=== PATIENT | female | born 1965 | race Hispanic/Latino ===

== ENCOUNTER 2018-07-01 15:20 | Emergency (ER) | payer OTHER ==
[~2018-07-01] VITALS: Ht 147.3 cm; Wt 56.7 kg
--- OUTSIDE RECORDS SUMMARY | 2018-07-01 15:22 | XMS REPORT | Clinical Summary ---
Author Author [facility] Address Unknown Phone Unavailable Care Team Providers Care Balancer Scale Name Role Phone Asked, No Pcp PCP Unavailable Allergies No Known Allergies Current Medications Prescription Sig. Disp. Refills Start End Date Status Date predniSONE (DELTASONE) 20 Take 4 tablets (80 mg 80 tablet 0 07/09/20 07/29/20 mg tablet total) by mouth daily for 17 17 20 days. insulin NPH (HumuLIN-N) Inject 12 Units under the 10 mL 12 07/09/20 07/29/20 100 unit/mL injection skin 2 (two) times a day 17 17 before meals for 20 days. sertraline (ZOLOFT) 25 MG Take 1 tablet (25 mg 30 tablet 0 07/09/20 08/08/20 tablet total) by mouth daily for 17 17 30 days. Active Problems Problem Noted Date Septic shock (HCC) 06/22/2017 Lymphadenopathy 06/21/2017 Overview: Added automatically from request for surgery [id number] Encounters Date Type Specialty Care Team Description 08/24/2017 Orders Only Hematology and Oncology Crystal Anne MD 07/13/2017 Lab Lab Aditya Burgess MD Other specified diseases of blood and blood-forming organs 07/13/2017 Office Visit Hematology Aditya Burgess MD Lymphadenopathy (Primary Dx); EBV infection 07/12/2017 Orders Only Hematology Pamella Schwarz MA Other specified diseases of blood and blood-forming organs (Primary Dx) 07/04/2017 Orders Only General Surgery Eleanor Arroyo MD 07/03/2017 Anesthesia General Surgery Doris Hunter Event MD 07/03/2017 Procedure Pass General Surgery 07/03/2017 Surgery General Surgery Mitchell Cheung MD Supraclavicular excisional lymph node biopsy 06/21/2017 [facility] General Surgery Rehrer, Samuel Garcia, DO Septic shock (Primary - Encounter Lock, Balbina Concepcion MD Dx); 07/09/2017 Lymphadenopathy after 06/30/2017 Social History Tobacco Use Types Packs/Day Years Used Date Never Smoker Smokeless Tobacco: Never Used Alcohol Use Drinks/Week oz/Week Comments No Sex Assigned at Date Recorded Not on file Last Filed Vital Signs Vital Sign Reading Time Taken Blood Pressure 99/50 07/13/2017 12:22 PM RECTIFYING OPERATOR Pulse 83 07/13/2017 12:22 PM RECTIFYING OPERATOR Temperature 36.2 C (97.2 F) 07/13/2017 12:22 PM RECTIFYING OPERATOR Respiratory Rate 99 07/13/2017 12:22 PM RECTIFYING OPERATOR Oxygen Saturation 100% 07/09/2017 12:25 PM RECTIFYING OPERATOR Inhaled Oxygen - - Concentration Weight 46.6 kg (102 lb 12.8 oz) 07/13/2017 12:22 PM RECTIFYING OPERATOR Height 152.4 cm (5') 07/13/2017 12:22 PM RECTIFYING OPERATOR Body Mass Index 20.08 07/13/2017 12:22 PM RECTIFYING OPERATOR Plan of Treatment Health Maintenance Due Date Last Done Comments BREAST CANCER SCREENING 2014 COLON CANCER SCREENING 2014 SHINGRIX VACCINE (#1) 2014 INFLUENZA VACCINE 03/28/2018 CERVICAL CANCER SCREENING 06/29/2020 06/29/2017 Implants Implanted Type Area Paintings Restorer Device Expiration Model / Identifier Date Serial / Lot Drain Wnd Chnl 19fr 4in Rnd Hbls Surgical N/A: N/A SHARON AND 2230 / -Flut W/ 4in Trocar - [id number] Implants; NI [facility] / Implanted: 06/23/2017 (Quantity not Expanders; CARE on file) Extenders; Surgical Wires Procedures Procedure Name Priority Date/Time Associated Diagnosis Comments MANUAL DIFFERENTIAL Routine 07/13/2017 Results for this 11:05 AM RECTIFYING OPERATOR procedure are in the results section. CBC WITH PLATELET AND Routine 07/13/2017 Other specified diseases Results for this DIFFERENTIAL 11:05 AM RECTIFYING OPERATOR of blood and procedure are in the blood-forming organs results section. POC GLUCOSE Routine 07/09/2017 Results for this 12:24 PM RECTIFYING OPERATOR procedure are in the results section. POC GLUCOSE Routine 07/09/2017 Results for this 8:07 AM RECTIFYING OPERATOR procedure are in the results section. POC GLUCOSE Routine 07/08/2017 Results for this 9:22 PM RECTIFYING OPERATOR procedure are in the results section. POC GLUCOSE Routine 07/08/2017 Results for this 5:02 PM RECTIFYING OPERATOR procedure are in the results section. POC GLUCOSE Routine 07/08/2017 Results for this 12:32 PM RECTIFYING OPERATOR procedure are in the results section. POC GLUCOSE Routine 07/08/2017 Results for this 8:55 AM RECTIFYING OPERATOR procedure are in the results section. ZZESTIMATED GFR Routine 07/08/2017 Results for this 4:00 AM RECTIFYING OPERATOR procedure are in the results section. BASIC METABOLIC PANEL Routine 07/08/2017 Results for this 4:00 AM RECTIFYING OPERATOR procedure are in the results section. MANUAL DIFFERENTIAL Routine 07/08/2017 Results for this 3:35 AM RECTIFYING OPERATOR procedure are in the results section. CBC WITH PLATELET AND Routine 07/08/2017 Results for this DIFFERENTIAL 3:35 AM RECTIFYING OPERATOR procedure are in the results section. POC GLUCOSE Routine 07/07/2017 Results for this 8:15 PM RECTIFYING OPERATOR procedure are in the results section. POC GLUCOSE Routine 07/07/2017 Results for this 5:44 PM RECTIFYING OPERATOR procedure are in the results section. POC GLUCOSE Routine 07/07/2017 Results for this 12:15 PM RECTIFYING OPERATOR procedure are in the results section. POC GLUCOSE Routine 07/07/2017 Results for this 9:00 AM RECTIFYING OPERATOR procedure are in the results section. ZZESTIMATED GFR Routine 07/07/2017 Results for this 4:00 AM RECTIFYING OPERATOR procedure are in the results section. BASIC METABOLIC PANEL Routine 07/07/2017 Results for this 4:00 AM RECTIFYING OPERATOR procedure are in the results section. HC COMPLETE BLD COUNT Routine 07/07/2017 Results for this W/AUTO DIFF 3:40 AM RECTIFYING OPERATOR procedure are in the results section. POC GLUCOSE Routine 07/06/2017 Results for this 9:22 PM RECTIFYING OPERATOR procedure are in the results section. POC GLUCOSE Routine 07/06/2017 Results for this 3:49 PM RECTIFYING OPERATOR procedure are in the results section. ECHOCARDIOGRAM 2D Routine 07/06/2017 Results for this COMPLETE W MMODE SPECTRAL 2:07 PM RECTIFYING OPERATOR procedure are in the COLOR DOPPLER ([id number]) results section. POC GLUCOSE Routine 07/06/2017 Results for this 11:23 AM RECTIFYING OPERATOR procedure are in the results section. POC GLUCOSE Routine 07/06/2017 Results for this 7:30 AM RECTIFYING OPERATOR procedure are in the results section. SMEAR REVIEW Routine 07/06/2017 Results for this 4:30 AM RECTIFYING OPERATOR procedure are in the results section. HC COMPLETE BLD COUNT Routine 07/06/2017 Results for this W/AUTO DIFF 4:30 AM RECTIFYING OPERATOR procedure are in the results section. ZZESTIMATED GFR Routine 07/06/2017 Results for this 4:00 AM RECTIFYING OPERATOR procedure are in the results section. BASIC METABOLIC PANEL Routine 07/06/2017 Results for this 4:00 AM RECTIFYING OPERATOR procedure are in the results section. MAGNESIUM LEVEL Routine 07/06/2017 Results for this 4:00 AM RECTIFYING OPERATOR procedure are in the results section. PHOSPHORUS LEVEL Routine 07/06/2017 Results for this 4:00 AM RECTIFYING OPERATOR procedure are in the results section. POC GLUCOSE Routine 07/05/2017 Results for this 8:05 PM RECTIFYING OPERATOR procedure are in the results section. SURGICAL PATHOLOGY Routine 07/05/2017 Results for this REQUEST 5:19 PM RECTIFYING OPERATOR procedure are in the results section. POC GLUCOSE Routine 07/05/2017 Results for this 4:36 PM RECTIFYING OPERATOR procedure are in the results section. POC GLUCOSE Routine 07/05/2017 Results for this 11:38 AM RECTIFYING OPERATOR procedure are in the results section. NM LUNG VENTILATION Routine 07/05/2017 Results for this PERFUSION 10:43 AM RECTIFYING OPERATOR procedure are in the results section. POC GLUCOSE Routine 07/05/2017 Results for this 7:51 AM RECTIFYING OPERATOR procedure are in the results section. POC GLUCOSE Routine 07/05/2017 Results for this 4:51 AM RECTIFYING OPERATOR procedure are in the results section. ZZESTIMATED GFR Routine 07/05/2017 Results for this 1:59 AM RECTIFYING OPERATOR procedure are in the results section. LACTIC ACID LEVEL Routine 07/05/2017 Results for this 1:59 AM RECTIFYING OPERATOR procedure are in the results section. BASIC METABOLIC PANEL Routine 07/05/2017 Results for this 1:59 AM RECTIFYING OPERATOR procedure are in the results section. MAGNESIUM LEVEL Routine 07/05/2017 Results for this 1:59 AM RECTIFYING OPERATOR procedure are in the results section. PHOSPHORUS LEVEL Routine 07/05/2017 Results for this 1:59 AM RECTIFYING OPERATOR procedure are in the results section. URINALYSIS SCREEN AND Routine 07/05/2017 Results for this MICROSCOPY, WITH REFLEX 1:50 AM RECTIFYING OPERATOR procedure are in the TO CULTURE results section. URINE CULTURE Routine 07/05/2017 Results for this 1:50 AM RECTIFYING OPERATOR procedure are in the results section. BLOOD CULTURE, AEROBIC & Routine 07/05/2017 Results for this ANAEROBIC 1:42 AM RECTIFYING OPERATOR procedure are in the results section. MANUAL DIFFERENTIAL Routine 07/05/2017 Results for this 1:30 AM RECTIFYING OPERATOR procedure are in the results section. CBC WITH PLATELET AND Routine 07/05/2017 Results for this DIFFERENTIAL 1:30 AM RECTIFYING OPERATOR procedure are in the results section. BLOOD CULTURE, AEROBIC & Routine 07/05/2017 Results for this ANAEROBIC 1:30 AM RECTIFYING OPERATOR procedure are in the results section. POC GLUCOSE Routine 07/05/2017 Results for this 12:07 AM RECTIFYING OPERATOR procedure are in the results section. POC GLUCOSE Routine 07/04/2017 Results for this 8:26 PM RECTIFYING OPERATOR procedure are in the results section. POC GLUCOSE Routine 07/04/2017 Results for this 4:58 PM RECTIFYING OPERATOR procedure are in the results section. SURGICAL PATHOLOGY Routine 07/04/2017 Results for this REQUEST 4:37 PM RECTIFYING OPERATOR procedure are in the results section. BONE MARROW TRAY Routine 07/04/2017 Results for this 2:50 PM RECTIFYING OPERATOR procedure are in the results section. FLOW CYTOMETRY EVALUATION Routine 07/04/2017 Results for this 2:50 PM RECTIFYING OPERATOR procedure are in the results section. MISCELLANEOUS REFERRAL Routine 07/04/2017 Results for this TEST 2:50 PM RECTIFYING OPERATOR procedure are in the results section. BIOPSY BONE MARROW Routine 07/04/2017 Lymphadenopathy Results for this 2:49 PM RECTIFYING OPERATOR procedure are in the results section. POC GLUCOSE Routine 07/04/2017 Results for this 12:00 PM RECTIFYING OPERATOR procedure are in the results section. POC GLUCOSE Routine 07/04/2017 Results for this 8:15 AM RECTIFYING OPERATOR procedure are in the results section. ZZESTIMATED GFR Routine 07/04/2017 Results for this 4:00 AM RECTIFYING OPERATOR procedure are in the results section. MAGNESIUM LEVEL Routine 07/04/2017 Results for this 4:00 AM RECTIFYING OPERATOR procedure are in the results section. PHOSPHORUS LEVEL Routine 07/04/2017 Results for this 4:00 AM RECTIFYING OPERATOR procedure are in the results section. HC COMPLETE BLD COUNT Routine 07/04/2017 Results for this W/AUTO DIFF 4:00 AM RECTIFYING OPERATOR procedure are in the results section. BASIC METABOLIC PANEL Routine 07/04/2017 Results for this 4:00 AM RECTIFYING OPERATOR procedure are in the results section. POC GLUCOSE Routine 07/03/2017 Results for this 7:50 PM RECTIFYING OPERATOR procedure are in the results section. SURGICAL PATHOLOGY Routine 07/03/2017 Results for this REQUEST 5:07 PM RECTIFYING OPERATOR procedure are in the results section. WV AN ELECTIVE Routine 07/03/2017 SUPRAGLOTTIC AIRWAY 4:45 PM RECTIFYING OPERATOR Procedure Note - Doris Hunter MD - 07/03/2017 4:44 PM RECTIFYING OPERATOR Airway Performed by: DORIS HUNTER Authorized by: DORIS HUNTER Location: OR Urgency: Elective Difficult Airway: No Anesthesio logist: DORIS HUNTER Performed by: anesthesio logist Preoxygena kyle with 100% O2: Yes C-spine Precaution s Maintained Throughout : Yes Mask Ventilatio n: Easy mask Final Airway Type: Supraglott ic airway Final LMA: I-Gel LMA Size: 4 Number of Attempts at Approach: 1 FLOW CYTOMETRY EVALUATION Routine 07/03/2017 Results for this 4:00 PM RECTIFYING OPERATOR procedure are in the results section. DISSECTION, LYMPH NODE 07/03/2017 1:15 PM RECTIFYING OPERATOR POC GLUCOSE Routine 07/03/2017 Results for this 11:53 AM RECTIFYING OPERATOR procedure are in the results section. POC GLUCOSE Routine 07/03/2017 Results for this 9:14 AM RECTIFYING OPERATOR procedure are in the results section. ZZESTIMATED GFR Routine 07/03/2017 Results for this 4:00 AM RECTIFYING OPERATOR procedure are in the results section. HC COMPLETE BLD COUNT Routine 07/03/2017 Results for this W/AUTO DIFF 4:00 AM RECTIFYING OPERATOR procedure are in the results section. BASIC METABOLIC PANEL Routine 07/03/2017 Results for this 4:00 AM RECTIFYING OPERATOR procedure are in the results section. POC GLUCOSE Routine 07/02/2017 Results for this 8:48 PM RECTIFYING OPERATOR procedure are in the results section. POC GLUCOSE Routine 07/02/2017 Results for this 5:01 PM RECTIFYING OPERATOR procedure are in the results section. POC GLUCOSE Routine 07/02/2017 Results for this 11:49 AM RECTIFYING OPERATOR procedure are in the results section. POC GLUCOSE Routine 07/02/2017 Results for this 7:48 AM RECTIFYING OPERATOR procedure are in the results section. ZZESTIMATED GFR Routine 07/02/2017 Results for this 3:32 AM RECTIFYING OPERATOR procedure are in the results section. BASIC METABOLIC PANEL Routine 07/02/2017 Results for this 3:32 AM RECTIFYING OPERATOR procedure are in the results section. HC COMPLETE BLD COUNT Routine 07/02/2017 Results for this W/AUTO DIFF 3:00 AM RECTIFYING OPERATOR procedure are in the results section. POC GLUCOSE Routine 07/01/2017 Results for this 9:21 PM CDT procedure are in the results section. POC GLUCOSE Routine 07/01/2017 Results for this 5:11 PM CDT procedure are in the results section. POC GLUCOSE Routine 07/01/2017 Results for this 11:37 AM CDT procedure are in the results section. POC GLUCOSE Routine 07/01/2017 Results for this 7:46 AM CDT procedure are in the results section. CBC WITH PLATELET AND Routine 07/01/2017 Results for this DIFFERENTIAL 4:20 AM CDT procedure are in the results section. ZZESTIMATED GFR Routine 07/01/2017 Results for this 4:00 AM CDT procedure are in the results section. BASIC METABOLIC PANEL Routine 07/01/2017 Results for this 4:00 AM CDT procedure are in the results section. POC GLUCOSE Routine 06/30/2017 Results for this 8:21 PM CDT procedure are in the results section. POC GLUCOSE Routine 06/30/2017 Results for this 4:15 PM CDT procedure are in the results section. POC GLUCOSE Routine 06/30/2017 Results for this 12:28 PM CDT procedure are in the results section. PET CT SKULL BASE TO MID Routine 06/30/2017 Results for this THIGH 10:16 AM CDT procedure are in the results section. POC GLUCOSE Routine 06/30/2017 Results for this 8:45 AM CDT procedure are in the results section. POC GLUCOSE Routine 06/30/2017 Results for this 8:25 AM CDT procedure are in the results section. PERIPHERAL SMEAR Routine 06/30/2017 Results for this 4:34 AM CDT procedure are in the results section. HC COMPLETE BLD COUNT Routine 06/30/2017 Results for this W/AUTO DIFF 4:34 AM CDT procedure are in the results section. BLOOD PARASITE SCREEN Routine 06/30/2017 Results for this 4:10 AM CDT procedure are in the results section. BLOOD PARASITE, THIN Routine 06/30/2017 Results for this SMEAR 4:10 AM CDT procedure are in the results section. ZZESTIMATED GFR Routine 06/30/2017 Results for this 4:00 AM CDT procedure are in the results section. BASIC METABOLIC PANEL Routine 06/30/2017 Results for this 4:00 AM CDT procedure are in the results section. after 06/30/2017 Results * Manual differential (07/13/2017 11:05 AM) Only the most recent of 3 results within the time period is included. Manual differential PERFORMED [facility] DEPARTMENT OF PATHOLOGY AND GENOMIC MEDICINE Neutrophils 88.0 (H) 39.0 - 69.0 % [facility] DEPARTMENT OF PATHOLOGY AND GENOMIC MEDICINE Lymphocytes 8.0 (L) 25.0 - 45.0 % [facility] DEPARTMENT OF PATHOLOGY AND GENOMIC MEDICINE Monocytes 0.0 0.0 - 10.0 % [facility] DEPARTMENT OF PATHOLOGY AND GENOMIC MEDICINE Eosinophils 1.0 0.0 - 5.0 % [facility] DEPARTMENT OF PATHOLOGY AND GENOMIC MEDICINE Basophils 0.0 0.0 - 1.0 % [facility] DEPARTMENT OF PATHOLOGY AND GENOMIC MEDICINE Metamyelocytes 1 % [facility] DEPARTMENT OF PATHOLOGY AND GENOMIC MEDICINE Myelocytes 2 % [facility] DEPARTMENT OF PATHOLOGY AND GENOMIC MEDICINE Promyelocytes 0 % [facility] DEPARTMENT OF PATHOLOGY AND GENOMIC MEDICINE Platelet slide review Randall adequate [facility] DEPARTMENT OF PATHOLOGY AND GENOMIC MEDICINE Anisocytosis Moderate [facility] DEPARTMENT OF PATHOLOGY AND GENOMIC MEDICINE Polychromasia Moderate [facility] DEPARTMENT OF PATHOLOGY AND GENOMIC MEDICINE Spherocytes Occasional [facility] DEPARTMENT OF PATHOLOGY AND GENOMIC MEDICINE Performing Organization Address City/State/Zipcode Phone Number [facility] DEPARTMENT OF [address] [place] [phone] PATHOLOGY AND GENOMIC MEDICINE * CBC with platelet and differential (07/13/2017 11:05 AM) Only the most recent of 10 results within the time period is included. WBC 15.65 (H) 4.50 - 11.00 k/uL [facility] DEPARTMENT OF PATHOLOGY AND GENOMIC MEDICINE RBC 3.98 (L) 4.20 - 5.50 m/uL [facility] DEPARTMENT OF PATHOLOGY AND GENOMIC MEDICINE HGB 10.0 (L) 12.0 - 16.0 g/dL [facility] DEPARTMENT OF PATHOLOGY AND GENOMIC MEDICINE HCT 33.1 (L) 37.0 - 47.0 % [facility] DEPARTMENT OF PATHOLOGY AND GENOMIC MEDICINE MCV 83.2 82.0 - 100.0 fL [facility] DEPARTMENT OF PATHOLOGY AND GENOMIC MEDICINE MCH 25.1 (L) 27.0 - 34.0 pg [facility] DEPARTMENT OF PATHOLOGY AND GENOMIC MEDICINE MCHC 30.2 (L) 31.0 - 37.0 g/dL [facility] DEPARTMENT OF PATHOLOGY AND GENOMIC MEDICINE RDW - SD 70.7 (H) 37.0 - 55.0 fL [facility] DEPARTMENT OF PATHOLOGY AND GENOMIC MEDICINE MPV 9.1 8.8 - 13.2 fL [facility] DEPARTMENT OF PATHOLOGY AND GENOMIC MEDICINE Platelet count 270 150 - 400 k/uL [facility] DEPARTMENT OF PATHOLOGY AND GENOMIC MEDICINE Neutrophils 88.0 (H) 39.0 - 69.0 % [facility] DEPARTMENT OF PATHOLOGY AND GENOMIC MEDICINE Lymphocytes 8.0 (L) 25.0 - 45.0 % [facility] DEPARTMENT OF PATHOLOGY AND GENOMIC MEDICINE Monocytes 0.0 0.0 - 10.0 % [facility] DEPARTMENT OF PATHOLOGY AND GENOMIC MEDICINE Eosinophils 1.0 0.0 - 5.0 % [facility] DEPARTMENT OF PATHOLOGY AND GENOMIC MEDICINE Basophils 0.0 0.0 - 1.0 % [facility] DEPARTMENT OF PATHOLOGY AND GENOMIC MEDICINE Specimen Blood Performing Organization Address City/[facility] [place] [address] PATHOLOGY AND GENOMIC MEDICINE * POC glucose (07/09/2017 12:24 PM) Only the most recent of 40 results within the time period is included. POC glucose 212 (H) 65 - 99 mg/dL [facility] DEPARTMENT OF Comment: PATHOLOGY AND [facility] Notified RN GENOMIC MEDICINE Meter ID: [id number] Ecotherapist: Catalina Morgan Performing Organization Address [facility] [place] [address] PATHOLOGY AND GENOMIC MEDICINE * Estimated GFR (07/08/2017 4:00 AM) Only the most recent of 9 results within the time period is included. GFR Non Af Amer >90 mL/min/1.73 m2 [facility] DEPARTMENT OF PATHOLOGY AND GENOMIC MEDICINE GFR Af Amer >90 mL/min/1.73 m2 [facility] DEPARTMENT OF Comment: PATHOLOGY AND Chronic kidney disease: <60 GENOMIC MEDICINE mL/min/1.73m2 Kidney failure: <15 mL/min/1.73m2 The estimated GFR is calculated from the IDMS-traceable Modification of Diet in Renal Disease Equation. The accuracy of the calculation is poor when the creatinine is normal. Calculated values >90 mL/min/1.73m2 are not reported. This equation has not been validated in children (<18 years), women, the elderly (>70 years), or ethnic groups other than Caucasians and Americans. Specimen Plasma specimen Performing Organization Address City/[facility] [place] [address] PATHOLOGY AND GENOMIC MEDICINE * Basic metabolic panel (07/08/2017 4:00 AM) Only the most recent of 9 results within the time period is included. Sodium 133 (L) 135 - 148 mEq/L [facility] DEPARTMENT OF PATHOLOGY AND GENOMIC MEDICINE Potassium 5.0 3.5 - 5.0 mEq/L [facility] DEPARTMENT OF PATHOLOGY AND GENOMIC MEDICINE Chloride 96 (L) 98 - 112 mEq/L [facility] DEPARTMENT OF PATHOLOGY AND GENOMIC MEDICINE CO2 21 (L) 24 - 31 mEq/L [facility] DEPARTMENT OF PATHOLOGY AND GENOMIC MEDICINE Anion gap 16 (H) 7 - 15 mEq/L [facility] DEPARTMENT OF Comment: PATHOLOGY AND Starting from November [facility] , anion gap calculation no longer incorporates potassium. Please note the change. BUN 6 6 - 20 mg/dL [facility] DEPARTMENT OF PATHOLOGY AND GENOMIC MEDICINE Creatinine 0.4 (L) 0.5 - 0.9 mg/dL [facility] DEPARTMENT OF PATHOLOGY AND GENOMIC MEDICINE Glucose 186 (H) 65 - 99 mg/dL [facility] DEPARTMENT OF PATHOLOGY AND GENOMIC MEDICINE Calcium 8.9 8.3 - 10.2 mg/dL [facility] DEPARTMENT OF PATHOLOGY AND GENOMIC MEDICINE Specimen Plasma specimen Performing Organization Address City/State/Zipcode Phone Number [facility] DEPARTMENT OF [address] [place] [address] PATHOLOGY AND GENOMIC MEDICINE * Echocardiogram complete w contrast and 3D if needed (07/06/2017 2:07 PM) Narrative Performed At [facility] Echocardiography Report [address] [place] [address].Name:Emma HERNANDEZ.ID:[id number] .Date: 07/06/2017 Refer.MD:BALBINA GALEANO MD Exam Time: 3:26:00 PMStudy Type:Routine Echo Height:60inWeight:115lb BSA: 1.48 m2 DOBAge:1965,51Y Sex: FEMALEBP:94/50 HR:110 bpm Sonogrphr: ARTEM Duarte Pat. Stat.:Inpatient Room:D871A Study Status:Final Echo Event ID:[id number] Order ID:[id number] Reason for Study:Cardiomyopathy; initial evaluation known or suspected, SHOCK Procedures:2D Echo, Colorflow Doppler, Portable, Stat Race:C SUMMARY: Compared to the prior study, RV systolic function has normalized. LV EF is normal. Small anterior and posterior pericardial effusion. Delayed contrast appears in the left atrium after 6 cardiac cycles consistent with transpulmonary shunting. LV filling pressure is normal. FINDINGS: LV: LV size is normal. LV EF is normal. Estimated EF is 55-59%. Overallwall motion is normal. RV: RV size is mildly enlarged. RV systolic function is normal. LA: LA volume is normal. RA: RA size is normal. AO: Aortic root diameter is normal. SERGEY: Small anterior and posterior pericardial effusion. Cntrst: Delayed contrast appears in the left atrium after 6 cardiac cyclesconsistent with transpulmonary shunting. AV: No structural AV abnormalities noted. MV: Thickened and/or calcified chordae. A trace of mitral regurgitation. PV: No structural PV abnormalities noted. Mild pulmonic regurgitation. TV: Dilated tricuspid annulus. Moderate tricuspid regurgitation Harper: LV relaxation is normal. LV filling pressure is normal. Other:Insufficient TR jet to estimate PA systolic pressure. MEASUREMENTS: 2D Parasternal Long [place] LVOT 1.8 cmIVSd 0.7 cm LA Ds2.7 cmLVPWd0.8 cm Ao Rtd 2.8 cmIndex1.9 cm/m LV Mass 81.4 g(87-129) LVIDd4 cmIndex2.7 cm/m LVM Index 55 g/m2 LVIDs2.1 cmRWT0.4 LV%fs 48.7 % LA Sng Plane LA Area 13.2 cm2(8.8-23.4) LA Vol27 ml Index18.3 ml/m LA LngAx 5.3 cm RA Sng Plane RA Area 13 cm2(8.3-19.5) RA Vol28.8 ml Index19.5 ml/m RA LngAx 5 cm DOPPLER LVOT Stroke Vol LVOT 1.8 cmLVOT CO4.3 l/min LVOT TVI20.1 cmLVOT CI2.9 l/m/m2 LVOT [id number] jrewSY19 bpm LVOT SV 51.1 ml Signed 07/06/2017 07:24 PM Leonard Mcfarland M.D. Procedure Note Interface, Radiology Results In - 07/06/2017 7:25 PM RECTIFYING OPERATOR Echocardiography Report [id number]Name: JENNY HERNANDEZ Pat.ID: [id number] St.Date: 07/06/2017 Refer.MD: BALBINA GALEANO MD Exam Time: 3:26:00 PM Study Type:Routine Echo Height: 60in Weight: 115lb BSA: 1.48 m2 Age: 11 1965,51Y Sex: FEMALE BP: 94/50 HR: 110 bpm Sonogrphr: ARTEM Duarte Pat. Stat.:[facility] Status:Final [facility] Event ID:[id number] Order ID: [id number] Reason for Study:Cardiomyopathy; initial evaluation known or suspected, SHOCK Procedures:2D Echo, Colorflow Doppler, Portable, Stat Race: C SUMMARY: Compared to the prior study, RV systolic function has normalized. LV EF is normal. Small anterior and posterior pericardial effusion. Delayed contrast appears in the left atrium after 6 cardiac cycles consistent with transpulmonary shunting. LV filling pressure is normal. FINDINGS: LV: LV size is normal. LV EF is normal. Estimated EF is 55-59%. Overall wall motion is normal. RV: RV size is mildly enlarged. RV systolic function is normal. LA: LA volume is normal. RA: RA size is normal. AO: Aortic root diameter is normal. SERGEY: Small anterior and posterior pericardial effusion. Cntrst: Delayed contrast appears in the left atrium after 6 cardiac cycles consistent with transpulmonary shunting. AV: No structural AV abnormalities noted. MV: Thickened and/or calcified chordae. A trace of mitral regurgitation. PV: No structural PV abnormalities noted. Mild pulmonic regurgitation. TV: Dilated tricuspid annulus. Moderate tricuspid regurgitation Harper: LV relaxation is normal. LV filling pressure is normal. Other: Insufficient TR jet to estimate PA systolic pressure. MEASUREMENTS: 2D Parasternal Long [place] LVOT 1.8 cm IVSd 0.7 cm LA Ds 2.7 cm LVPWd 0.8 cm Ao Rtd 2.8 cm Index 1.9 cm/m LV Mass 81.4 g (87-129) LVIDd 4 cm Index 2.7 cm/m LVM Index 55 g/m2 LVIDs 2.1 cm RWT 0.4 LV%fs 48.7 % LA Sng Plane LA Area 13.2 cm2 (8.8-23.4) LA Vol 27 ml Index 18.3 ml/m LA LngAx 5.3 cm RA Sng Plane RA Area 13 cm2 (8.3-19.5) RA Vol 28.8 ml Index 19.5 ml/m RA LngAx 5 cm DOPPLER LVOT Stroke Vol LVOT 1.8 cm LVOT CO 4.3 l/min LVOT TVI 20.1 cm LVOT CI 2.9 l/m/m2 LVOT Tm 217 msec HR 84 bpm LVOT SV 51.1 ml Signed 07/06/2017 07:24 PM Leonard Mcfarland M.D. Performing Organization Address City/State/Zipcode Phone Number [facility] [address] [place] [address] * Smear review (07/06/2017 4:30 AM) Platelet slide review Randall adequate [facility] DEPARTMENT OF PATHOLOGY AND GENOMIC MEDICINE Anisocytosis Marked (A) [facility] DEPARTMENT OF PATHOLOGY AND GENOMIC MEDICINE Polychromasia Moderate [facility] DEPARTMENT OF PATHOLOGY AND GENOMIC MEDICINE Ovalocytes Moderate [facility] DEPARTMENT OF PATHOLOGY AND GENOMIC MEDICINE Performing Organization Address City/[facility] Phone Number [facility] DEPARTMENT OF [address] [place] [address] PATHOLOGY AND GENOMIC MEDICINE * Phosphorus level (07/06/2017 4:00 AM) Only the most recent of 3 results within the time period is included. Phosphorus 3.7 2.4 - 4.5 mg/dL [facility] DEPARTMENT OF PATHOLOGY AND GENOMIC MEDICINE Specimen Plasma specimen Performing Organization Address City/[facility] Phone Number [facility] [place] [address] PATHOLOGY AND GENOMIC MEDICINE * Magnesium level (07/06/2017 4:00 AM) Only the most recent of 3 results within the time period is included. Magnesium 2.2 1.6 - 2.6 mg/dL [facility] DEPARTMENT OF PATHOLOGY AND GENOMIC MEDICINE Specimen Plasma specimen Performing Organization Address City/[facility] Phone Number [facility] [place] [address] PATHOLOGY AND GENOMIC MEDICINE * Surgical pathology request (07/05/2017 5:19 PM) Only the most recent of 3 results within the time period is included. [facility] DEPARTMENT OF PATHOLOGY AND GENOMIC MEDICINE Surgical pathology report See link below for PDF Lab [facility] DEPARTMENT OF Report PATHOLOGY AND GENOMIC MEDICINE Performing Organization Address City/[facility] Phone Number [facility] [place] [address] PATHOLOGY AND GENOMIC MEDICINE * NM Lung Ventilation Perfusion (07/05/2017 10:43 AM) Narrative Performed At PROCEDURE:NM LUNG VENTILATION PERFUSION RADIANT INDICATION:Right ventricular dilation dictation.Evaluate for chronic PE. COMPARISON:CT images from PET/CT scan dated 06/30/2017. TECHNIQUE:Planar ventilation images were acquired after the inhalation of 15 mCi of Xe-133 gas. Planar perfusion images were acquired after the IV adminstration of 5 mCi of Tc-99m MAA. FINDINGS:Ventilation images demonstrate decreased ventilation to the lung periphery. Washout images demonstrate patchy gas trapping in both lungs.Perfusion images demonstrate small defects in the lung periphery.No suspicious mismatched defects. Comparison imaging did not show a confluent, segmental infiltrate. IMPRESSION: 1.Very low probability for acute PE.No evidence for chronic PE. [facility]-[id number] Procedure Note Interface, Radiology Results Incoming - 07/05/2017 11:21 AM RECTIFYING OPERATOR PROCEDURE: NM LUNG VENTILATION PERFUSION INDICATION: Right ventricular dilation dictation. Evaluate for chronic PE. COMPARISON: CT images from PET/CT scan dated 06/30/2017. TECHNIQUE: Planar ventilation images were acquired after the inhalation of 15 mCi of Xe-133 gas. Planar perfusion images were acquired after the IV adminstration of 5 mCi of Tc-99m MAA. FINDINGS: Ventilation images demonstrate decreased ventilation to the lung periphery. Washout images demonstrate patchy gas trapping in both lungs. Perfusion images demonstrate small defects in the lung periphery. No suspicious mismatched defects. Comparison imaging did not show a confluent, segmental infiltrate. IMPRESSION: 1. Very low probability for acute PE. No evidence for chronic PE. [facility]-[id number] Performing Organization Address City/[facility]/Zipcode Phone Number [place] [phone] * Lactic acid level (07/05/2017 1:59 AM) Lactic acid 1.7 0.5 - 2.2 mmol/L [facility] DEPARTMENT OF PATHOLOGY AND GENOMIC MEDICINE Specimen Plasma specimen Performing Organization Address City/[facility]/Zipcode Phone Number [address] [address] PATHOLOGY AND GENOMIC MEDICINE * Urinalysis screen and microscopy, with reflex to culture (07/05/2017 1:50 AM) Specimen site Clean catch [facility] DEPARTMENT OF PATHOLOGY AND GENOMIC MEDICINE Color, UA Colorless [facility] DEPARTMENT OF PATHOLOGY AND GENOMIC MEDICINE Appearance, UA Clear [facility] DEPARTMENT OF PATHOLOGY AND GENOMIC MEDICINE Specific gravity, UA 1.002 1.001 - 1.035 [facility] DEPARTMENT OF PATHOLOGY AND GENOMIC MEDICINE pH, UA 7.0 5.0 - 8.5 [facility] DEPARTMENT OF PATHOLOGY AND GENOMIC MEDICINE Protein, UA Negative Negative [facility] DEPARTMENT OF PATHOLOGY AND GENOMIC MEDICINE Glucose, UA Negative Negative [facility] DEPARTMENT OF PATHOLOGY AND GENOMIC MEDICINE Ketones, UA Negative Negative [facility] DEPARTMENT OF PATHOLOGY AND GENOMIC MEDICINE Bilirubin, UA Negative Negative [facility] DEPARTMENT OF PATHOLOGY AND GENOMIC MEDICINE Blood, UA Negative Negative [facility] DEPARTMENT OF PATHOLOGY AND GENOMIC MEDICINE Nitrite, UA Negative Negative [facility] DEPARTMENT OF PATHOLOGY AND GENOMIC MEDICINE Urobilinogen, UA <2.0 <2.0 [facility] DEPARTMENT OF PATHOLOGY AND GENOMIC MEDICINE Leukocyte esterase, UA Negative Negative [facility] DEPARTMENT OF PATHOLOGY AND GENOMIC MEDICINE WBC, UA None seen 0 - 4 /HPF [facility] DEPARTMENT OF PATHOLOGY AND GENOMIC MEDICINE RBC, UA None seen 0 - 2 /HPF [facility] DEPARTMENT OF PATHOLOGY AND GENOMIC MEDICINE Bacteria, UA None seen None seen [facility] DEPARTMENT OF PATHOLOGY AND GENOMIC MEDICINE Yeast, UA None seen [facility] DEPARTMENT OF PATHOLOGY AND GENOMIC MEDICINE Yeast with pseudohyphae, None seen [facility] DEPARTMENT OF UA PATHOLOGY AND GENOMIC MEDICINE Specimen Urine Performing Organization Address City/[facility] Phone Number [facility] [place] [address] PATHOLOGY AND GENOMIC MEDICINE * Urine culture (07/05/2017 1:50 AM) Urine culture SEE COMMENTComment: [facility] DEPARTMENT OF Bacteriuria screen negative. PATHOLOGY AND GENOMIC MEDICINE Performing Organization Address City/[facility] Phone Number [facility] [place] [address] PATHOLOGY AND GENOMIC MEDICINE * Blood culture, aerobic & anaerobic (07/05/2017 1:42 AM) Only the most recent of 2 results within the time period is included. Blood culture isolate No growth after 5 days of [facility] DEPARTMENT OF incubation. PATHOLOGY AND Comment: GENOMIC MEDICINE Specimen Information Specimen Source: Blood Specimen Site: Hand Right Specimen Blood Performing Organization Address City/State/Zipcode Phone Number [facility] [place] [address] PATHOLOGY AND GENOMIC MEDICINE * Bone marrow tray (07/04/2017 2:50 PM) Bone marrow tray done [facility] DEPARTMENT OF PATHOLOGY AND GENOMIC MEDICINE Specimen Fluid Performing Organization Address City/[facility]/Zipcode Phone Number [facility] [place] [address] PATHOLOGY AND GENOMIC MEDICINE * Miscellaneous referral test (07/04/2017 2:50 PM) [facility] [place], [place] test name BM [facility] [place] [place] test result see note [facility] Comment: CHROMOSOME/FISH ANALYSIS ONCOLOGY Chromosome Analysis Indication: FUO, Lymphadenopathy Sample Type: BONE MARROW METHOD OF ANALYSIS:GTG-Banding RESULTS: 46,XX[20] INTERPRETATION : Normal female chromosome analysis with no clonal abnormalities observed. A Cancer Chromosomal Microarray Analysis (Test Code 9515) is also available to evaluate genomic aberrations that could be missed by conventional cytogenetic analysis. ---- FISH ONCOLOGY ANALYSIS Method of Analysis: FISH FISH Nuclei examined: 1000 Results: NORMAL: 2p23 (ALK) - Rearrangement NOT detected 3q27 (BCL6) - Rearrangement NOT detected 11q22.3 (JAYME) - Deletion NOT detected 14q32 (IGH) - Rearrangement NOT detected 17p13.1 (p53) - Deletion NOT detected INTERPRETATION : Negative FISH analysis for the above-named loci. Fluorescence in situ hybridization (FISH) studies were performed on this specimen using a panel of DNA probes (from [employer]) designed to detect abnormalities commonly seen in non Hodgkin's lymphoma (NHL). At least two hundred nuclei were analyzed for each probe. The vast majority of the nuclei studied showed two green and two red signals for the JAYME and p53 probes, and two yellow signals for the ALK, BCL6, and IGH probes, indicating the presence of two copies of respective probe regions and the absence of ALK, BCL6, or IGH associated rearrangements, i.e., the results are normal. ISCN: nuc ervin(ALK,BCL6,JAYME,IGH,p53)x2[20 0] Test performed by: [facility] [address] [place] [address]. [place], [id number] Narrative Performed At [facility] Performing Organization Address City/State/Zipcode Phone Number [facility] [address] [place] [address] * Flow cytometry evaluation (07/04/2017 2:50 PM) Only the most recent of 2 results within the time period is included. [facility] DEPARTMENT OF PATHOLOGY AND GENOMIC MEDICINE Flow cytometry evaluation See link below for PDF Lab [facility] DEPARTMENT OF Report PATHOLOGY AND GENOMIC MEDICINE Specimen Blood Narrative Performed At Performing Organization Address City/State/Zipcode Phone Number [facility] DEPARTMENT OF [address] [place] [address] PATHOLOGY AND GENOMIC MEDICINE * Biopsy bone marrow (07/04/2017 2:49 PM) Narrative Performed At THANH Toyn 07/04/20172:49 PM Biopsy bone marrow Date/Time: 07/04/2017 2:47 PM Performed by: CARLIN SEGURA Authorized by: CARLIN SEUGRA Procedure: Procedure:Bone marrow aspirate and bone marrow biopsy Indications:Metastatic workup Consent: Consent obtained:Written Consent given by:Patient [place] protocol: Procedure explained and questions answered to patient or proxy's satisfaction: yes Relevant documents present and verified: yes Test results available and properly labeled: yes Required blood products, implants, devices and special equipment available: no Site/side marked: yes Patient identity confirmed:Verbally with patient Local anesthetic: Anesthesia method:Local infiltration (drug 1) Local anesthetic (drug 1):Lidocaine 2% w/o epi Anesthetic total (mL) (drug 1):15 Procedure details: Skin preparation:Skin prepped with povidone-iodine Preparation: Patient was prepped and draped in usual sterile fashion Location:Right Patient position:L lateral decubitus Aspirate needle info:Aspirate Number of attempts aspirate:1 Sample appearance:Spicules present Number of attempts biopsy:1 Tubes of marrow:1 Biopsy length (cm):1 Total volume:17 Specimen sent for:Peripheral smear, aspirate, clot, biopsy, cell surface markers, cytogenics and FISH Cell surface markers:Lymphoma panel FISH:NHL Post-procedure details: Site care:Site cleaned, pressure dressing applied and adhesive bandage applied Complications:None Comments: Procedure done at the right iliac crest.Patient tolerated fine. * PET/CT Skull Base To Mid Thigh (06/30/2017 10:16 AM) Narrative Performed At PROCEDURE:PET CT SKULL BASE TO MID THIGH RADIANT INDICATION:Lymphadenopathy. TECHNIQUE:Blood glucose measured at the time of injection was 84 mg/dL. The patient was then injected with 13.2 mCi of 18F-FDG, IV.Approximately one hour later, PET images were acquired from the skull base to the mid thighs. Corresponding, low dose, non-contrast CT scanning was performed as part of the attenuation correction process.Automated dose exposure control was utilized. COMPARISON:CT scan of the chest, abdomen, and pelvis dated 06/21/2017, showing supraclavicular, mediastinal, axillary, and pelvic adenopathy. FINDINGS: Head and neck:No suspicious brain uptake.Normal uptake is seen in the visualized sinuses, orbits, nasopharynx, and oropharynx.Uptake by the larynx is normal.Bilateral cervical adenopathy is present, with increased uptake.Index right supraclavicular lymph node demonstrates an SUV of 7.8 and measures 1.7 cm x 1.4 cm.Bilateral perijugular lymph nodes are noted, with increased uptake. Chest:Mediastinal and axillary adenopathy is present, with increased uptake.Index right axillary lymph node demonstrates an SUV of 6.3 and measures 2.1 cm x 1.3 cm.Index left axillary lymph node demonstrates an SUV of 7 and measures 1.7 cm x 1.2 cm.No suspicious hilar lymph node uptake.No suspicious pulmonary uptake. Abdomen:Diffuse uptake in the spleen is noted, relative to the liver, suggesting involvement by malignancy.Normal uptake is seen in the stomach, pancreas, liver, and adrenal glands.No abnormal retroperitoneal or mesenteric lymph node uptake. Pelvis:Physiologic bowel uptake.Bilateral pelvic adenopathy is present.Right external iliac lymph node demonstrates an SUV of 4.1.Left external iliac lymph node demonstrates an SUV of 4.3. Review of the osseous structures demonstrates no suspicious uptake. IMPRESSION: 1.Adenopathy in the neck, chest, and pelvis demonstrates increased uptake, most compatible with involvement by lymphoma.Lymph nodes are most pronounced in the neck and chest. 2.Diffuse uptake in the spleen is suggestive of involvement by lymphoma, though a recent viral infection can also produce this finding. [facility]-[id number] Procedure Note [facility], Radiology Results Incoming - 06/30/2017 10:51 AM CDT PROCEDURE: PET CT SKULL BASE TO MID THIGH INDICATION: Lymphadenopathy. TECHNIQUE: Blood glucose measured at the time of injection was 84 mg/dL. The patient was then injected with 13.2 mCi of 18F-FDG, IV. Approximately one hour later, PET images were acquired from the skull base to the mid thighs. Corresponding, low dose, non-contrast CT scanning was performed as part of the attenuation correction process. Automated dose exposure control was utilized. COMPARISON: CT scan of the chest, abdomen, and pelvis dated 06/21/2017, showing supraclavicular, mediastinal, axillary, and pelvic adenopathy. FINDINGS: Head and neck: No suspicious brain uptake. Normal uptake is seen in the visualized sinuses, orbits, nasopharynx, and oropharynx. Uptake by the larynx is normal. Bilateral cervical adenopathy is present, with increased uptake. Index right supraclavicular lymph node demonstrates an SUV of 7.8 and measures 1.7 cm x 1.4 cm. Bilateral perijugular lymph nodes are noted, with increased uptake. Chest: Mediastinal and axillary adenopathy is present, with increased uptake. Index right axillary lymph node demonstrates an SUV of 6.3 and measures 2.1 cm x 1.3 cm. Index left axillary lymph node demonstrates an SUV of 7 and measures 1.7 cm x 1.2 cm. No suspicious hilar lymph node uptake. No suspicious pulmonary uptake. Abdomen: Diffuse uptake in the spleen is noted, relative to the liver, suggesting involvement by malignancy. Normal uptake is seen in the stomach, pancreas, liver, and adrenal glands. No abnormal retroperitoneal or mesenteric lymph node uptake. Pelvis: Physiologic bowel uptake. Bilateral pelvic adenopathy is present. Right external iliac lymph node demonstrates an SUV of 4.1. Left external iliac lymph node demonstrates an SUV of 4.3. Review of the osseous structures demonstrates no suspicious uptake. IMPRESSION: 1. Adenopathy in the neck, chest, and pelvis demonstrates increased uptake, most compatible with involvement by lymphoma. Lymph nodes are most pronounced in the neck and chest. 2. Diffuse uptake in the spleen is suggestive of involvement by lymphoma, though a recent viral infection can also produce this finding. [facility]-[id number] Performing Organization Address City/[facility]/Zipcode Phone Number [facility] [address] [place] [address] * Peripheral smear (06/30/2017 4:34 AM) Peripheral smear Done [facility] DEPARTMENT OF Comment: PATHOLOGY AND Peripheral smear is located in GENOMIC MEDICINE Hematology Laboratory, second floor of [facility]. Performing Organization Address City/State/Zipcode Phone Number [address] [address] PATHOLOGY AND GENOMIC MEDICINE * Blood parasite, thin smear (06/30/2017 4:10 AM) Blood parasite, thin No Plasmodium or other blood [facility] DEPARTMENT OF smear parasite seen. PATHOLOGY AND Comment: GENOMIC MEDICINE Specimen Information Specimen Source: Blood Specimen Site: Unspecified Specimen Blood Performing Organization Address City/State/Zipcode Phone Number [facility] DEPARTMENT OF [address] [place] [address] PATHOLOGY AND GENOMIC MEDICINE * Blood parasite screen (06/30/2017 4:10 AM) Blood parasite, thick No Plasmodium or other blood [facility] DEPARTMENT OF smear parasite seen. PATHOLOGY AND Comment: GENOMIC MEDICINE Specimen Information Specimen Source: Blood Specimen Site: Unspecified Specimen Blood Performing Organization Address City/State[facility] Phone Number [facility] DEPARTMENT OF [address] [place] [address] PATHOLOGY AND GENOMIC MEDICINE after 06/30/2017 Insurance Payer Benefit Subscriber ID Type Phone Address Plan / Group DAVIS EXCHANGE DAVIS xxxxxxxxxx Exchange [employer] [address]
--- OUTSIDE RECORDS SUMMARY | 2018-07-01 15:23 | XMS REPORT | Summary of Care ---
Author Author [facility] [place] Organization [facility] [place] Address Unknown Phone Unavailable Encounter HQ Encntr_alias(FIN) [id number] Date(s): 02/14/17 - 02/14/17 [facility] [place] [address] [place] [phone] Discharge Disposition: Home or Self Care Attending Physician: Stevan Andrews MD Vital Signs No data available for this section Problem List No data available for this section Allergies, Adverse Reactions, Alerts No data available for this section Medications No data available for this section Results No data available for this section Immunizations No data available for this section Procedures No data available for this section Social History No data available for this section Assessment and Plan No data available for this section
--- OUTSIDE RECORDS SUMMARY | 2018-07-01 15:23 | XMS REPORT | Clinical Summary ---
Author Author [facility] Address Unknown Phone Unavailable Care Team Providers Care Skin Care Instructor Name Role Phone Herbert Stratton MD PCP Allergies No Known Allergies Medications End Date Status Medication Sig Dispensed Refills Start Date Active predniSONE (DELTASONE) 20 Take 20 mg by 0 MG tablet mouth daily. Active insulin regular (HUMULIN Inject 12 0 R,NOVOLIN R) 100 unit/mL Units injectionIndications: subcutaneousl Steroid use y 3 (three) times daily before meals Use as directed . 08/25/2017 Discontinued predniSONE (DELTASONE) 20 Take 40 mg by 0 MG tabletIndications: mouth daily. Lymphoma 08/31/2017 Discontinued predniSONE (DELTASONE) 20 Take 2 20 tablet 0 201 MG tabletIndications: tablets (40 7 Lymphoma mg total) by mouth daily for 10 days. 09/03/2017 levoFLOXacin (LEVAQUIN) Take 1 tablet 2 tablet 0 500 MG tablet (500 mg 8 total) by mouth daily for 2 days. 09/21/2017 predniSONE (DELTASONE) 20 Take 3 60 tablet 0 201 MG tabletIndications: tablets (60 8 Lymphoma mg total) by mouth daily for 20 days. Active Problems Problem Noted Date SIRS (systemic inflammatory response syndrome) 08/27/2017 Diabetes mellitus, type 2 08/27/2017 Lymphoproliferative disorder 08/23/2017 Adrenal insufficiency 08/23/2017 Resolved Problems Problem Noted Date Resolved Date Sepsis, due to unspecified organism 08/27/2017 08/27/2017 Hyperglycemia 08/23/2017 08/27/2017 Septic shock 08/22/2017 08/27/2017 Encounters Care Team Description Date Type Specialty Delicia Conde MD COLONOSCOPY 11/10/2017 Surgery Delicia Conde MD 11/10/2017 Hospital Encounter Rhianna Ferrari MD 11/10/2017 Anesthesia Event Iker Desai MD Shamsee, MD Julian Duvall, MD Jamshid Cardona Amna, MD Sepsis, due to unspecified organism (HCC) (Primary Dx); Fever, unspecified fever cause; Rash; Adrenal insufficiency (HCC); Type 2 diabetes mellitus with complication, without long-term current use of insulin (HCC); Lymphoproliferative disorder (HCC); SIRS (systemic inflammatory response syndrome) (HCC); Elevated ferritin level; Hypophosphatemia; Hypomagnesemia; Fever in other diseases; Hypokalemia; Hypocalcemia 08/26/2017 [facility] General Internal Medicine - Encounter 08/31/2017 Sanaz Lucas MD Mankidy, MD Tony Roman, MD Binta Ma, Tracey Tierney MD Septic shock (HCC) (Primary Dx); Adrenal insufficiency (HCC); Lymphoproliferative disorder (HCC); Hyperglycemia; High serum ferritin 08/22/2017 [facility] General Internal Medicine - Encounter 08/25/2017 08/22/2017 Orders Only General Internal Medicine after 06/30/2017 Social History Date Tobacco Use Types Packs/Day Years Used Never Smoker Smokeless Tobacco: Never Used Alcohol Use Drinks/Week oz/Week Comments No Sex Assigned at Date Recorded Not on file Industry Job Start Date Occupation Not on file Not on file Not on file Travel End Travel History Travel Start No recent travel history available. Last Filed Vital Signs Time Taken Vital Sign Reading 11/10/2017 10:20 AM CDT Blood Pressure 116/65 11/10/2017 10:20 AM CDT Pulse 72 11/10/2017 9:56 AM CDT Temperature 36.4 C (97.6 F) 11/10/2017 10:20 AM CDT Respiratory Rate 16 11/10/2017 10:20 AM CDT Oxygen Saturation 100% 08/29/2017 11:29 AM OPERATING ROOM MANAGER Inhaled Oxygen 21% Concentration 08/31/2017 5:08 AM OPERATING ROOM MANAGER Weight 52.6 kg (116 lb) 08/27/2017 3:15 AM OPERATING ROOM MANAGER Height 147.3 cm (4' 10") 08/31/2017 5:08 AM OPERATING ROOM MANAGER Body Mass Index 24.24 Plan of Treatment Not on file Procedures Comments Procedure Name Priority Date/Time Associated Diagnosis POCT-GLUCOSE METER Routine 11/10/2017 10:05 AM CDT REPORT OF PROCEDURE - 11/10/2017 ENDOSCOPY URL 9:57 AM CDT POCT-GLUCOSE METER Routine 11/10/2017 9:06 AM CDT COLONOSCOPY 11/10/2017 Screen for colon cancer 9:00 AM CDT RHYTHM STRIP - SCAN 09/19/2017 8:03 AM OPERATING ROOM MANAGER RHYTHM STRIP - SCAN 09/01/2017 11:00 AM OPERATING ROOM MANAGER POCT-GLUCOSE METER Routine 08/31/2017 11:53 AM OPERATING ROOM MANAGER POCT-GLUCOSE METER Routine 08/31/2017 7:35 AM OPERATING ROOM MANAGER CBC W/PLT COUNT & AUTO Routine 08/31/2017 DIFFERENTIAL 5:00 AM OPERATING ROOM MANAGER CBC W/PLT COUNT & AUTO Routine 08/31/2017 DIFFERENTIAL 5:00 AM OPERATING ROOM MANAGER COMPREHENSIVE METABOLIC Routine 08/31/2017 PANEL 5:00 AM OPERATING ROOM MANAGER POCT-GLUCOSE METER Routine 08/30/2017 9:05 PM OPERATING ROOM MANAGER POCT-GLUCOSE METER Routine 08/30/2017 5:22 PM OPERATING ROOM MANAGER POCT-GLUCOSE METER Routine 08/30/2017 1:39 PM OPERATING ROOM MANAGER POCT-GLUCOSE METER Routine 08/30/2017 7:14 AM OPERATING ROOM MANAGER CBC W/PLT COUNT & AUTO Routine 08/30/2017 DIFFERENTIAL 6:05 AM OPERATING ROOM MANAGER MAGNESIUM Routine 08/30/2017 6:05 AM OPERATING ROOM MANAGER CBC W/PLT COUNT & AUTO Routine 08/30/2017 DIFFERENTIAL 6:05 AM OPERATING ROOM MANAGER COMPREHENSIVE METABOLIC Routine 08/30/2017 PANEL 6:05 AM OPERATING ROOM MANAGER POCT-GLUCOSE METER Routine 08/29/2017 9:14 PM OPERATING ROOM MANAGER POCT-GLUCOSE METER Routine 08/29/2017 5:17 PM OPERATING ROOM MANAGER RHYTHM STRIP - SCAN 08/29/2017 3:23 PM OPERATING ROOM MANAGER POCT-GLUCOSE METER Routine 08/29/2017 11:43 AM OPERATING ROOM MANAGER POCT-GLUCOSE METER Routine 08/29/2017 7:06 AM OPERATING ROOM MANAGER CBC W/PLT COUNT & AUTO Routine 08/29/2017 DIFFERENTIAL 3:58 AM OPERATING ROOM MANAGER FERRITIN Routine 08/29/2017 3:58 AM OPERATING ROOM MANAGER MAGNESIUM Routine 08/29/2017 3:58 AM OPERATING ROOM MANAGER PHOSPHORUS Routine 08/29/2017 3:58 AM OPERATING ROOM MANAGER HEPATIC FUNCTION PANEL Routine 08/29/2017 3:58 AM OPERATING ROOM MANAGER BASIC METABOLIC PANEL (7) Routine 08/29/2017 3:58 AM OPERATING ROOM MANAGER CBC W/PLT COUNT & AUTO Routine 08/29/2017 DIFFERENTIAL 3:58 AM OPERATING ROOM MANAGER VANCOMYCIN LEVEL, TROUGH Timed 08/28/2017 11:10 PM OPERATING ROOM MANAGER POCT-GLUCOSE METER Routine 08/28/2017 9:31 PM OPERATING ROOM MANAGER POCT-GLUCOSE METER Routine 08/28/2017 5:10 PM OPERATING ROOM MANAGER HISTOPLASMA ANTIGEN, Routine 08/28/2017 URINE 1:57 PM OPERATING ROOM MANAGER POCT-GLUCOSE METER Routine 08/28/2017 12:12 PM OPERATING ROOM MANAGER POCT-GLUCOSE METER Routine 08/28/2017 7:12 AM OPERATING ROOM MANAGER CBC W/PLT COUNT & AUTO Routine 08/28/2017 DIFFERENTIAL 6:52 AM OPERATING ROOM MANAGER STRONGYLOIDES ANTIBODY, Routine 08/28/2017 IGG 6:52 AM OPERATING ROOM MANAGER HEPATITIS B PCR, Routine 08/28/2017 QUANTITATIVE 6:52 AM OPERATING ROOM MANAGER ASPERGILLUS GALACTOMANNAN Routine 08/28/2017 ANTIGEN 6:52 AM OPERATING ROOM MANAGER CRYPTOCOCCAL ANTIGEN Routine 08/28/2017 6:52 AM OPERATING ROOM MANAGER EBV VIRAL LOAD Routine 08/28/2017 6:52 AM OPERATING ROOM MANAGER MAGNESIUM Routine 08/28/2017 6:52 AM OPERATING ROOM MANAGER PHOSPHORUS Routine 08/28/2017 6:52 AM OPERATING ROOM MANAGER HEPATIC FUNCTION PANEL Routine 08/28/2017 6:52 AM OPERATING ROOM MANAGER BASIC METABOLIC PANEL (7) Routine 08/28/2017 6:52 AM OPERATING ROOM MANAGER CBC W/PLT COUNT & AUTO Routine 08/28/2017 DIFFERENTIAL 6:52 [address]PERATING [address] ABDOMEN/PELVIS WITH IV JW 08/28/2017 CONTRAST 1:59 AM OPERATING ROOM MANAGER CT CHEST WITH IV CONTRAST JW 08/28/2017 1:59 AM OPERATING ROOM MANAGER POCT-GLUCOSE METER Routine 08/27/2017 9:56 PM OPERATING ROOM MANAGER D-DIMER Routine 08/27/2017 10:50 AM OPERATING ROOM MANAGER TRIGLYCERIDES Routine 08/27/2017 10:50 AM OPERATING ROOM MANAGER PT/APTT Routine 08/27/2017 10:50 AM OPERATING ROOM MANAGER FIBRINOGEN Routine 08/27/2017 10:50 AM OPERATING ROOM MANAGER FERRITIN Routine 08/27/2017 10:50 AM OPERATING ROOM MANAGER LACTATE DEHYDROGENASE Routine 08/27/2017 (LDH) 10:50 AM OPERATING ROOM MANAGER CREATINE KINASE (CK), Routine 08/27/2017 TOTAL AND MB 10:50 AM OPERATING ROOM MANAGER TROPONIN I Routine 08/27/2017 10:50 AM OPERATING ROOM MANAGER CBC W/PLT COUNT & AUTO Routine 08/27/2017 DIFFERENTIAL 5:18 AM OPERATING ROOM MANAGER C-REACTIVE PROTEIN Routine 08/27/2017 5:18 AM OPERATING ROOM MANAGER SEDIMENTATION RATE Routine 08/27/2017 5:18 AM OPERATING ROOM MANAGER TSH/FREE T4 IF INDICATED Routine 08/27/2017 5:18 AM OPERATING ROOM MANAGER CREATINE KINASE (CK), Routine 08/27/2017 TOTAL AND MB 5:18 AM OPERATING ROOM MANAGER TROPONIN I Routine 08/27/2017 5:18 AM OPERATING ROOM MANAGER HEMOGLOBIN A1C Routine 08/27/2017 5:18 AM OPERATING ROOM MANAGER LIPID PANEL Routine 08/27/2017 5:18 AM OPERATING ROOM MANAGER MAGNESIUM Routine 08/27/2017 5:18 AM OPERATING ROOM MANAGER PHOSPHORUS Routine 08/27/2017 5:18 AM OPERATING ROOM MANAGER HEPATIC FUNCTION PANEL Routine 08/27/2017 5:18 AM OPERATING ROOM MANAGER BASIC METABOLIC PANEL (7) Routine 08/27/2017 5:18 AM OPERATING ROOM MANAGER CBC W/PLT COUNT & AUTO Routine 08/27/2017 DIFFERENTIAL 5:18 AM OPERATING ROOM MANAGER POCT-GLUCOSE METER Routine 08/27/2017 4:05 AM OPERATING ROOM MANAGER POCT-LACTIC ACID, VENOUS Routine 08/27/2017 2:50 AM OPERATING ROOM MANAGER CRITICAL CARE Routine 08/27/2017 12:25 AM OPERATING ROOM MANAGER POCT-LACTIC ACID, VENOUS Routine 08/27/2017 12:20 AM OPERATING ROOM MANAGER URINALYSIS W/ MICROSCOPIC STAT 08/26/2017 11:16 PM OPERATING ROOM MANAGER URINE CULTURE STAT 08/26/2017 11:16 PM OPERATING ROOM MANAGER INFLUENZA A H1N1 PCR Add-On 08/26/2017 10:10 PM OPERATING ROOM MANAGER RAPID INFLUENZA A&B STAT 08/26/2017 SCREEN 10:10 PM OPERATING ROOM MANAGER BLOOD CULTURE STAT 08/26/2017 10:10 PM OPERATING ROOM MANAGER BLOOD CULTURE STAT 08/26/2017 10:10 PM OPERATING ROOM MANAGER XR CHEST 1 VIEW STAT 08/26/2017 PORTABLE/BEDSIDE 10:00 PM OPERATING ROOM MANAGER POCT-LACTIC ACID, VENOUS Routine 08/26/2017 9:39 PM OPERATING ROOM MANAGER CBC W/PLT COUNT & AUTO STAT 08/26/2017 DIFFERENTIAL 9:37 PM OPERATING ROOM MANAGER MAGNESIUM STAT 08/26/2017 9:37 PM OPERATING ROOM MANAGER COMPREHENSIVE METABOLIC STAT 08/26/2017 PANEL 9:37 PM OPERATING ROOM MANAGER CBC W/PLT COUNT & AUTO STAT 08/26/2017 DIFFERENTIAL 9:37 PM OPERATING ROOM MANAGER POCT-GLUCOSE METER Routine 08/26/2017 9:36 PM OPERATING ROOM MANAGER POCT-GLUCOSE METER Routine 08/25/2017 1:22 PM OPERATING ROOM MANAGER POCT-GLUCOSE METER Routine 08/25/2017 12:08 PM OPERATING ROOM MANAGER POCT-GLUCOSE METER Routine 08/25/2017 5:50 AM OPERATING ROOM MANAGER (MANUAL DIFFERENTIAL) Routine 08/25/2017 5:39 AM OPERATING ROOM MANAGER CBC W/PLT COUNT & AUTO STAT 08/25/2017 DIFFERENTIAL 5:39 AM OPERATING ROOM MANAGER FERRITIN Routine 08/25/2017 5:39 AM OPERATING ROOM MANAGER MAGNESIUM Routine 08/25/2017 5:39 AM OPERATING ROOM MANAGER PHOSPHORUS Routine 08/25/2017 5:39 AM OPERATING ROOM MANAGER CBC W/PLT COUNT & AUTO STAT 08/25/2017 DIFFERENTIAL 5:39 AM OPERATING ROOM MANAGER BASIC METABOLIC PANEL (7) STAT 08/25/2017 5:39 AM OPERATING ROOM MANAGER POCT-GLUCOSE METER Routine 08/25/2017 1:19 AM OPERATING ROOM MANAGER POCT-GLUCOSE METER Routine 08/24/2017 6:08 PM OPERATING ROOM MANAGER POCT-GLUCOSE METER Routine 08/24/2017 2:22 PM OPERATING ROOM MANAGER FERRITIN Routine 08/24/2017 1:42 PM OPERATING ROOM MANAGER POCT-GLUCOSE METER Routine 08/24/2017 9:52 AM OPERATING ROOM MANAGER FIBRINOGEN Routine 08/24/2017 8:01 AM OPERATING ROOM MANAGER PT/APTT Routine 08/24/2017 8:01 AM OPERATING ROOM MANAGER PROTHROMBIN TIME/INR Routine 08/24/2017 8:01 AM OPERATING ROOM MANAGER VANCOMYCIN LEVEL, TROUGH Timed 08/24/2017 8:01 AM OPERATING ROOM MANAGER POCT-GLUCOSE METER Routine 08/24/2017 6:18 AM OPERATING ROOM MANAGER (MANUAL DIFFERENTIAL) Routine 08/24/2017 3:35 AM OPERATING ROOM MANAGER CBC W/PLT COUNT & AUTO STAT 08/24/2017 DIFFERENTIAL 3:35 AM OPERATING ROOM MANAGER MAGNESIUM Routine 08/24/2017 3:35 AM OPERATING ROOM MANAGER PHOSPHORUS Routine 08/24/2017 3:35 AM OPERATING ROOM MANAGER CBC W/PLT COUNT & AUTO STAT 08/24/2017 DIFFERENTIAL 3:35 AM OPERATING ROOM MANAGER BASIC METABOLIC PANEL (7) STAT 08/24/2017 3:35 AM OPERATING ROOM MANAGER LACTIC ACID, VENOUS, Routine 08/24/2017 WHOLE BLOOD 3:35 AM OPERATING ROOM MANAGER POCT-GLUCOSE METER Routine 08/23/2017 11:17 PM OPERATING ROOM MANAGER POCT-GLUCOSE METER Routine 08/23/2017 5:37 PM OPERATING ROOM MANAGER HEPATIC FUNCTION PANEL Routine 08/23/2017 1:23 PM OPERATING ROOM MANAGER TRIGLYCERIDES Routine 08/23/2017 1:23 PM OPERATING ROOM MANAGER APTT Routine 08/23/2017 1:23 PM OPERATING ROOM MANAGER PROTHROMBIN TIME/INR Routine 08/23/2017 1:23 PM OPERATING ROOM MANAGER LACTATE DEHYDROGENASE Routine 08/23/2017 (LDH) 1:23 PM OPERATING ROOM MANAGER IRON, TIBC, % SAT. Routine 08/23/2017 (WITHOUT FERRITIN) 1:23 PM OPERATING ROOM MANAGER FERRITIN Routine 08/23/2017 1:23 PM OPERATING ROOM MANAGER PROCALCITONIN Routine 08/23/2017 1:23 PM OPERATING ROOM MANAGER POCT-GLUCOSE METER Routine 08/23/2017 12:10 PM OPERATING ROOM MANAGER ECHOCARDIOGRAM REPORT - 08/23/2017 SCAN 9:22 AM OPERATING ROOM MANAGER POCT-GLUCOSE METER Routine 08/23/2017 6:06 AM OPERATING ROOM MANAGER LACTIC ACID, VENOUS, STAT 08/23/2017 WHOLE BLOOD 3:43 AM OPERATING ROOM MANAGER (MANUAL DIFFERENTIAL) Routine 08/23/2017 3:42 AM OPERATING ROOM MANAGER CBC W/PLT COUNT & AUTO STAT 08/23/2017 DIFFERENTIAL 3:42 AM OPERATING ROOM MANAGER MAGNESIUM Routine 08/23/2017 3:42 AM OPERATING ROOM MANAGER CBC W/PLT COUNT & AUTO STAT 08/23/2017 DIFFERENTIAL 3:42 AM OPERATING ROOM MANAGER BASIC METABOLIC PANEL (7) STAT 08/23/2017 3:42 AM OPERATING ROOM MANAGER POCT-GLUCOSE METER Routine 08/23/2017 12:12 AM OPERATING ROOM MANAGER XR CHEST 1 VIEW STAT 08/22/2017 PORTABLE/BEDSIDE 10:53 PM OPERATING ROOM MANAGER LACTIC ACID, ARTERIAL, STAT 08/22/2017 WHOLE BLOOD 10:47 PM OPERATING ROOM MANAGER BLOOD CULTURE Routine 08/22/2017 10:46 PM OPERATING ROOM MANAGER CRITICAL CARE Routine 08/22/2017 9:32 PM OPERATING ROOM MANAGER US ABDOMEN COMPLETE STAT 08/22/2017 8:26 PM OPERATING ROOM MANAGER LACTIC ACID, VENOUS, STAT 08/22/2017 WHOLE BLOOD 8:23 PM OPERATING ROOM MANAGER LACTIC ACID, VENOUS, STAT 08/22/2017 WHOLE BLOOD 6:36 PM OPERATING ROOM MANAGER 2D ECHO W/ DOPPLER STAT 08/22/2017 (CW/PW/COLOR) 6:06 PM OPERATING ROOM MANAGER URINE CULTURE Routine 08/22/2017 5:14 PM OPERATING ROOM MANAGER (MANUAL DIFFERENTIAL) Routine 08/22/2017 5:13 PM OPERATING ROOM MANAGER CBC W/PLT COUNT & AUTO Routine 08/22/2017 DIFFERENTIAL 5:13 PM OPERATING ROOM MANAGER CBC W/PLT COUNT & AUTO STAT 08/22/2017 DIFFERENTIAL 5:13 PM OPERATING ROOM MANAGER FIBRINOGEN STAT 08/22/2017 5:13 PM OPERATING ROOM MANAGER D-DIMER STAT 08/22/2017 5:13 PM OPERATING ROOM MANAGER PROTHROMBIN TIME/INR STAT 08/22/2017 5:13 PM OPERATING ROOM MANAGER TROPONIN I STAT 08/22/2017 5:13 PM OPERATING ROOM MANAGER MAGNESIUM STAT 08/22/2017 5:13 PM OPERATING ROOM MANAGER LIPASE STAT 08/22/2017 5:13 PM OPERATING ROOM MANAGER HEPATIC FUNCTION PANEL STAT 08/22/2017 5:13 PM OPERATING ROOM MANAGER BASIC METABOLIC PANEL (7) STAT 08/22/2017 5:13 PM OPERATING ROOM MANAGER URINALYSIS W/ MICROSCOPIC Routine 08/22/2017 5:13 PM OPERATING ROOM MANAGER LACTIC ACID, VENOUS, STAT 08/22/2017 WHOLE BLOOD 5:13 PM OPERATING ROOM MANAGER POCT-LACTIC ACID, VENOUS Routine 08/22/2017 3:14 PM OPERATING ROOM MANAGER URINALYSIS W/ MICROSCOPIC STAT 08/22/2017 3:06 PM OPERATING ROOM MANAGER URINE CULTURE STAT 08/22/2017 3:06 PM OPERATING ROOM MANAGER XR CHEST PA OR AP 1 VIEW STAT 08/22/2017 IN DEPT. 2:09 PM OPERATING ROOM MANAGER INFLUENZA A H1N1 PCR Add-On 08/22/2017 2:09 PM OPERATING ROOM MANAGER RAPID INFLUENZA A&B STAT 08/22/2017 SCREEN 2:09 PM OPERATING ROOM MANAGER ECG 12-LEAD Routine 08/22/2017 1:54 PM OPERATING ROOM MANAGER ECG 12-LEAD Routine 08/22/2017 1:54 PM OPERATING ROOM MANAGER Procedure Note - Interface, External Ris In - 08/22/2017 3:34 PM OPERATING ROOM MANAGER Ventricula r Rate 117 BPM Atrial Rate 117 BPM P-R Interval 130 ms QRS Duration 70 ms Q-T Interval 310 ms QTC Calculatio n(Bazett) 432 ms P [place] 52 degrees R [place] 75 degrees T [place] 31 degrees Sinus tachycardi a Otherwise normal ECG No previous ECGs available BLOOD CULTURE STAT 08/22/2017 1:47 PM OPERATING ROOM MANAGER POCT-LACTIC ACID, VENOUS Routine 08/22/2017 1:34 PM OPERATING ROOM MANAGER (MANUAL DIFFERENTIAL) STAT 08/22/2017 1:32 PM OPERATING ROOM MANAGER CBC W/PLT COUNT & AUTO STAT 08/22/2017 DIFFERENTIAL 1:32 PM OPERATING ROOM MANAGER COMPREHENSIVE METABOLIC STAT 08/22/2017 PANEL 1:32 PM OPERATING ROOM MANAGER CBC W/PLT COUNT & AUTO STAT 08/22/2017 DIFFERENTIAL 1:32 PM OPERATING ROOM MANAGER BLOOD CULTURE STAT 08/22/2017 1:32 PM OPERATING ROOM MANAGER after 06/30/2017 Results * POC-Glucose meter (11/10/2017 10:05 AM CDT) Only the most recent of 32 results within the time period is included. POC-Glucose Meter 145 (H)Comment: TESTED AT 70 - 110 mg/dL [facility] [address] [facility] [id number] Specimen Blood Performing Organization Address City/State/Zipcode Phone Number [facility] [address] [place] [address] [facility] * REPORT OF PROCEDURE - ENDOSCOPY URL (11/10/2017 9:57 AM CDT) Narrative Performed At * RHYTHM STRIP - SCAN (09/19/2017 8:03 AM OPERATING ROOM MANAGER) Only the most recent of 3 results within the time period is included. Narrative Performed At * CBC with platelet count + automated diff (08/31/2017 5:00 AM OPERATING ROOM MANAGER) Only the most recent of 11 results within the time period is included. WBC 5.8 3.5 - 10.5 K/L [facility] RBC 3.30 (L) 3.93 - 5.22 M/L [facility] Hemoglobin 8.1 (L) 11.2 - 15.7 GM/DL [facility] Hematocrit 27.0 (L) 34.1 - 44.9 % [facility] MCV 81.8 79.4 - 94.8 fL [facility] MCH 24.5 (L) 25.6 - 32.2 pg [facility] MCHC 30.0 (L) 32.2 - 35.5 GM/DL [facility] RDW 19.2 (H) 11.7 - 14.4 % [facility] Platelets 104 (L) 150 - 450 K/CU MM [facility] MPV 10.8 9.4 - 12.3 fL [facility] nRBC 0 0 - 0 /100 WBC [facility] % Neutros 76 % [facility] % Lymphs 17 % [facility] % Monos 4 % [facility] % Eos 2 % [facility] % Baso 0 % [facility] # Neutros 4.44 1.56 - 6.13 K/L [facility] # Lymphs 1.01 (L) 1.18 - 3.74 K/L [facility] # Monos 0.21 (L) 0.24 - 0.36 K/L [facility] # Eos 0.10 0.04 - 0.36 K/L [facility] # Baso 0.00 (L) 0.01 - 0.08 K/L [facility] Immature 1 0 - 1 % [facility] Granulocytes-[facility] Specimen Blood Performing Organization Address City/State/Zipcode Phone Number [facility] [address] [place] [address] [facility] * Comprehensive metabolic panel (08/31/2017 5:00 AM OPERATING ROOM MANAGER) Only the most recent of 4 results within the time period is included. Protein, Total 5.8 (L) 6.0 - 8.3 gm/dL [facility] Albumin 2.6 (L) 3.5 - 5.0 g/dL [facility] Alkaline Phosphatase 95 40 - 150 U/L [facility] Total Bilirubin 0.4 0.2 - 1.2 mg/dL [facility] Sodium 140 136 - 145 meq/L [facility] Potassium 3.6 3.5 - 5.1 meq/L [facility] Chloride 107 98 - 107 meq/L [facility] CO2 25 22 - 29 meq/L [facility] BUN 15 7 - 21 mg/dL [facility] Creatinine 0.54 (L) 0.57 - 1.25 mg/dL [facility] Glucose 135 (H) 70 - 105 mg/dL [facility] Calcium 8.4 8.4 - 10.2 mg/dL [facility] AST 19 5 - 34 U/L [facility] ALT 19 6 - 55 U/L [facility] EGFR 118Comment: ESTIMATED GFR IS mL/min/1.73 sq m [facility] NOT ACCURATE CREATININE [facility] CLEARANCE IN PREDICTING GLOMERULAR FILTRATION RATE. ESTIMATED GFR IS NOT APPLICABLE FOR DIALYSIS PATIENTS. Specimen Blood Performing Organization Address City[facility] Phone Number [address] * Magnesium (08/30/2017 6:05 AM OPERATING ROOM MANAGER) Only the most recent of 9 results within the time period is included. Magnesium 1.6 1.6 - 2.6 mg/dL [facility] Specimen Blood - Line, Venous Performing Organization Address City/[facility] Phone Number [address] * Phosphorus (08/29/2017 3:58 AM OPERATING ROOM MANAGER) Only the most recent of 5 results within the time period is included. Phosphorus 2.8Comment: Specimen slightly 2.3 - 4.7 mg/dL [facility] hemolyzed [facility] Specimen Blood - Line, Venous Performing Organization Address [facility] Phone Number [place] [phone] * Ferritin (08/29/2017 3:58 AM OPERATING ROOM MANAGER) Only the most recent of 5 results within the time period is included. Ferritin 6,028 (H) 5 - 275 ng/mL [facility] Specimen Blood - Line, Venous Performing Organization Address [facility] [place] Number [facility] [address] [place] [address] [phone] * Hepatic function panel (08/29/2017 3:58 AM OPERATING ROOM MANAGER) Only the most recent of 5 results within the time period is included. Protein, Total 5.7 (L)Comment: Specimen 6.0 - 8.3 gm/dL [facility] Albumin 2.4 (L)Comment: Specimen 3.5 - 5.0 g/dL [facility] Total Bilirubin 0.3Comment: Specimen slightly 0.2 - 1.2 mg/dL [facility] Bilirubin, Direct 0.2Comment: Specimen slightly 0.1 - 0.5 mg/dL [facility] Alkaline Phosphatase 61 40 - 150 U/L [facility] AST 12Comment: Specimen slightly 5 - 34 U/L [facility] ALT 10Comment: Specimen slightly 6 - 55 U/L [facility] Specimen Blood - Line, Venous Performing Organization Address City/[facility] Phone Number [facility] [address] [place] [address] [phone] [place] [address] * Basic metabolic panel (08/29/2017 3:58 AM OPERATING ROOM MANAGER) Only the most recent of 7 results within the time period is included. Sodium 139 136 - 145 meq/L [facility] Potassium 3.6Comment: Specimen slightly 3.5 - 5.1 meq/L [facility] Chloride 107 98 - 107 meq/L [facility] CO2 25 22 - 29 meq/L [facility] BUN 10 7 - 21 mg/dL [facility] Creatinine 0.51 (L)Comment: Specimen 0.57 - 1.25 mg/dL [facility] slightly hemolyzed [facility] Glucose 123 (H) 70 - 105 mg/dL [facility] Calcium 8.0 (L) 8.4 - 10.2 mg/dL [facility] EGFR 126Comment: ESTIMATED GFR IS mL/min/1.73 sq m [facility] NOT ACCURATE CREATININE [facility] CLEARANCE IN PREDICTING GLOMERULAR FILTRATION RATE. ESTIMATED GFR IS NOT APPLICABLE FOR DIALYSIS PATIENTS. Specimen Blood - Line, Venous Performing Organization Address [place] [place] [address] * Vancomycin level, trough (08/28/2017 11:10 PM OPERATING ROOM MANAGER) Only the most recent of 2 results within the time period is included. Vancomycin Tr 6.1 (L) 10.0 - 20.0 ug/mL [facility] Specimen Blood - Line, Venous Performing Organization Address [place] [place] Phone [place] [address] * Histoplasma antigen, urine (08/28/2017 1:57 PM OPERATING ROOM MANAGER) Histoplasma Antigen <0.5 ng/mL [facility] Comment: INCORPORATED REFERENCE RANGE: <0.5 ng/mL Histoplasma galactomannan is frequently detected in urine from patients with disseminated histoplasmosis. However, a negative result does not exclude a diagnosis of histoplasmosis. Many patients with acute pulmonary disease or chronic cavitary disease do not exhibit antigenuria. Galactomannan levels in urine typically decrease with successful treatment. Specimens from patients with other endemic mycoses, such as blastomycosis, coccidioidomycosis, or aspergillosis, may also be positive in this assay. This test should be used in conjunction with other diagnostics tests, including culture, molecular assays, and histology in making a final diagnosis. This test was developed and its analytical performance characteristics have been determined by [facility]. It has not been cleared or approved by the U.S. Food and Drug Administration.The FDA has determined that such clearance or approval is not necessary. This assay has been validated pursuant to the CLIA regulations andis used for clinical purposes. Specimen Urine - Urine, Clean Catch Narrative Performed At Performing Lab [email or web address] *[employer] [address] [place] [phone] Irvin Floyd MD Performing Organization Address [facility] [place] Phone Number [facility] [address] [facility] [address] * STRONGYLOIDES ANTIBODY,IGG (08/28/2017 6:52 AM OPERATING ROOM MANAGER) STRONGYLOIDES IGG NEGATIVE [facility] Comment: INCORPORATED RERERENCE RANGE:NEGATIVE Strongyloides stercoralis is a parasitic Nematode found in tropical and subtropical regions.Because of low larval densities in feces, stool examination is a relatively insensitive diagnostic test; antibody detection offers increased sensitivity. Patients with latent infections who are immunosuppressed or receiving immunosuppressive therapy are at risk of life-threatening hyperinfection. Significant crossreactivity may be observed in other helminth infections. Specimen Blood - Arm, Right Narrative Performed At Performing Lab [email or web address] *[facility] [address] [place] [phone] Irvin Floyd MD Performing Organization Address [facility] [place] [facility] [place] Phone Number [facility], [address] [facility] [address] * EBV Viral Load (08/28/2017 6:52 AM OPERATING ROOM MANAGER) EBV Viral Load Negative or below the linear [facility] range of the assay (<500 [facility] copies/mL) Specimen Blood - Arm, Right Narrative Performed At This assay was performed by real-time PCR for the detection of the [place] [facility] virus (EBV) gene EBNA-1.The test is composed of (1) DNA extraction from [facility] patient specimen, and (2) real-time PCR amplification and detection with [id number] primers and probes. A well-conserved region of the EBNA-1 gene is targeted, along with an internal control sequence used to confirm PCR amplification. Asymptomatic carriers and viral genetic variation, among other factors, can affect the accuracy of nucleic acid testing; therefore, results should be interpreted in light of clinical data. This test was developed and its performance characteristics determined by the [facility] Pathology Department, Section of Molecular Pathology. It has not been cleared or approved by the U.S. Food and Drug Administration (FDA), since FDA approval is not required for clinical use of the test. Validation was done as required by The Clinical Laboratory Improvement Amendments of 1988. Performing Organization Address City/[facility] [place] [address] [facility] * Hepatitis B PCR, quantitative (08/28/2017 6:52 AM OPERATING ROOM MANAGER) HBV PCR, Quantitative HBV DNA not detected HBV DNA not detected [facility] Specimen Blood - Arm, Right Narrative Performed At This test uses a Real-Time Polymerase Chain Reaction (RT-PCR) methodology and [facility] was performed using [employer] AmpliPrep/FELIPA TaqMan HBV Test, v2.0 (Pint Please [facility] [employer] Reportable range for this assay is 20 - 170,000,000 IU per mL (1.30 - 8.23 Log IU/mL). Performing Organization Address [facility] [place] [address] [phone] [place] [address] * Cryptococcal antigen (08/28/2017 6:52 AM OPERATING ROOM MANAGER) Cryptococcal Antigen, Negative Negative, Interference [facility] Serum [facility] Specimen Blood - Arm, Right Performing Organization Address [facility] [place] [address] [facility] * Aspergillus galactomannan antigen (08/28/2017 6:52 AM OPERATING ROOM MANAGER) Aspergillus Index Value <0.50 [facility] Aspergillus Antigen NOT DETECTED [facility] Comment: INCORPORATED REFERENCE RANGE: <0.50, NOT DETECTED A negative result does not exclude invasive aspergillosis. Follow-up testing may be indicated for high-risk patients. Specimen Blood - Arm, Right Narrative Performed At Performing Lab [facility] *[facility] [address] [place] [phone] Irvin Floyd MD Performing Organization Address City/State/Zipcode Phone Number [facility] [place], [address] [place], [place] [facility] [address] * CT abdomen/pelvis with IV contrast (08/28/2017 1:59 AM OPERATING ROOM MANAGER) Narrative Performed At FINAL REPORT [facility] CLINICAL HISTORY: CBD associated with lymphoproliferative disorder, 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 Oral contrast wasgiven. This exam was performed according to our departmental dose-optimization program, which includes automated exposure control, adjustment of the mA and/or kV according to patient size and/or use of the iterative reconstruction technique. Comparison: None. Chest: Lung parenchyma: Nonspecific, subtle groundglass opacities scattered in both lungs. No focal consolidation, nodule or mass. Pleural effusion: None. Pneumothorax: None. Tracheobronchial tree: No significant findings. Pulmonary vasculature: No significant findings. Cardiac contours and great vessels: No significant findings. Mediastinum: No significant findings. Lymph Nodes: Prominent bilateral axillary lymph nodes. Examples in the left axilla has a short axis where of 11 mm. Prominent but subcentimeter short axis diameter mediastinal nodes. Skeleton: No acute abnormality. Abdomen and pelvis: Liver: Hepatomegaly with the craniocaudal dimension of the right liver measuring 19 cm at the midclavicular line. Gallbladder and biliary tree: Previous cholecystectomy Spleen: The spleen is at the upper limits of normal for size, measuring 12 x 12 cm Adrenal Glands: No significant findings. Kidneys and ureters: Subcentimeter hypodensity in the superior left kidney, too small to characterize Stomach and Duodenum: No significant findings. Pancreas: No significant findings. Bowel: No significant findings. Appendix: Normal. Bladder: No significant findings. Major vascular structures: Scattered atherosclerotic calcifications Reproductive organs: No significant findings. Other: Shotty retroperitoneal lymph nodes. Prominent but subcentimeter short axis diameter inguinal lymph nodes. No free air, fluid or adenopathy Skeleton: No acute bony abnormality. IMPRESSION: Subtle, nonspecific groundglass opacities in both lungs could reflect atelectasis or pneumonitis. Prominent axillary lymph nodes, consistent with the given diagnosis of lymphoproliferative disorder. Prominent but subcentimeter short axis diameter nodes are present in the mediastinum and retroperitoneum. Hepatomegaly. Prominent spleen at the upper limits of normal for size. Signed: Samuel Martínez MD Report Verified Date/Time:08/28/2017 02:21:40 Reading Location: [address] Reading Room Procedure Note Interface, External Ris In - 08/28/2017 2:23 AM OPERATING ROOM MANAGER FINAL REPORT CLINICAL HISTORY: CBD associated with lymphoproliferative disorder, 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 Oral contrast was given. This exam was performed according to our departmental dose-optimization program, which includes automated exposure control, adjustment of the mA and/or kV according to patient size and/or use of the iterative reconstruction technique. Comparison: None. Chest: Lung parenchyma: Nonspecific, subtle groundglass opacities scattered in both lungs. No focal consolidation, nodule or mass. Pleural effusion: None. Pneumothorax: None. Tracheobronchial tree: No significant findings. Pulmonary vasculature: No significant findings. Cardiac contours and great vessels: No significant findings. Mediastinum: No significant findings. Lymph Nodes: Prominent bilateral axillary lymph nodes. Examples in the left axilla has a short axis where of 11 mm. Prominent but subcentimeter short axis diameter mediastinal nodes. Skeleton: No acute abnormality. Abdomen and pelvis: Liver: Hepatomegaly with the craniocaudal dimension of the right liver measuring 19 cm at the midclavicular line. Gallbladder and biliary tree: Previous cholecystectomy Spleen: The spleen is at the upper limits of normal for size, measuring 12 x 12 cm Adrenal Glands: No significant findings. Kidneys and ureters: Subcentimeter hypodensity in the superior left kidney, too small to characterize Stomach and Duodenum: No significant findings. Pancreas: No significant findings. Bowel: No significant findings. Appendix: Normal. Bladder: No significant findings. Major vascular structures: Scattered atherosclerotic calcifications Reproductive organs: No significant findings. Other: Shotty retroperitoneal lymph nodes. Prominent but subcentimeter short axis diameter inguinal lymph nodes. No free air, fluid or adenopathy Skeleton: No acute bony abnormality. IMPRESSION: Subtle, nonspecific groundglass opacities in both lungs could reflect atelectasis or pneumonitis. Prominent axillary lymph nodes, consistent with the given diagnosis of lymphoproliferative disorder. Prominent but subcentimeter short axis diameter nodes are present in the mediastinum and retroperitoneum. Hepatomegaly. Prominent spleen at the upper limits of normal for size. Signed: Samuel Martínez MD Report Verified Date/Time: 08/28/2017 02:21:40 Reading Location: [address] Reading Room Performing Organization Address City/State/Zipcode Phone Number [facility] * CT chest with IV contrast (08/28/2017 1:59 AM OPERATING ROOM MANAGER) Narrative Performed At FINAL REPORT [facility] CLINICAL HISTORY: CBD associated with lymphoproliferative disorder, 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 Oral contrast wasgiven. This exam was performed according to our departmental dose-optimization program, which includes automated exposure control, adjustment of the mA and/or kV according to patient size and/or use of the iterative reconstruction technique. Comparison: None. Chest: Lung parenchyma: Nonspecific, subtle groundglass opacities scattered in both lungs. No focal consolidation, nodule or mass. Pleural effusion: None. Pneumothorax: None. Tracheobronchial tree: No significant findings. Pulmonary vasculature: No significant findings. Cardiac contours and great vessels: No significant findings. Mediastinum: No significant findings. Lymph Nodes: Prominent bilateral axillary lymph nodes. Examples in the left axilla has a short axis where of 11 mm. Prominent but subcentimeter short axis diameter mediastinal nodes. Skeleton: No acute abnormality. Abdomen and pelvis: Liver: Hepatomegaly with the craniocaudal dimension of the right liver measuring 19 cm at the midclavicular line. Gallbladder and biliary tree: Previous cholecystectomy Spleen: The spleen is at the upper limits of normal for size, measuring 12 x 12 cm Adrenal Glands: No significant findings. Kidneys and ureters: Subcentimeter hypodensity in the superior left kidney, too small to characterize Stomach and Duodenum: No significant findings. Pancreas: No significant findings. Bowel: No significant findings. Appendix: Normal. Bladder: No significant findings. Major vascular structures: Scattered atherosclerotic calcifications Reproductive organs: No significant findings. Other: Shotty retroperitoneal lymph nodes. Prominent but subcentimeter short axis diameter inguinal lymph nodes. No free air, fluid or adenopathy Skeleton: No acute bony abnormality. IMPRESSION: Subtle, nonspecific groundglass opacities in both lungs could reflect atelectasis or pneumonitis. Prominent axillary lymph nodes, consistent with the given diagnosis of lymphoproliferative disorder. Prominent but subcentimeter short axis diameter nodes are present in the mediastinum and retroperitoneum. Hepatomegaly. Prominent spleen at the upper limits of normal for size. Signed: Samuel Martínez MD Report Verified Date/Time:08/28/2017 02:21:40 Reading Location: [address] Reading Room Procedure Note Interface, External Ris In - 08/28/2017 2:23 AM OPERATING ROOM MANAGER FINAL REPORT CLINICAL HISTORY: CBD associated with lymphoproliferative disorder, 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 Oral contrast was given. This exam was performed according to our departmental dose-optimization program, which includes automated exposure control, adjustment of the mA and/or kV according to patient size and/or use of the iterative reconstruction technique. Comparison: None. Chest: Lung parenchyma: Nonspecific, subtle groundglass opacities scattered in both lungs. No focal consolidation, nodule or mass. Pleural effusion: None. Pneumothorax: None. Tracheobronchial tree: No significant findings. Pulmonary vasculature: No significant findings. Cardiac contours and great vessels: No significant findings. Mediastinum: No significant findings. Lymph Nodes: Prominent bilateral axillary lymph nodes. Examples in the left axilla has a short axis where of 11 mm. Prominent but subcentimeter short axis diameter mediastinal nodes. Skeleton: No acute abnormality. Abdomen and pelvis: Liver: Hepatomegaly with the craniocaudal dimension of the right liver measuring 19 cm at the midclavicular line. Gallbladder and biliary tree: Previous cholecystectomy Spleen: The spleen is at the upper limits of normal for size, measuring 12 x 12 cm Adrenal Glands: No significant findings. Kidneys and ureters: Subcentimeter hypodensity in the superior left kidney, too small to characterize Stomach and Duodenum: No significant findings. Pancreas: No significant findings. Bowel: No significant findings. Appendix: Normal. Bladder: No significant findings. Major vascular structures: Scattered atherosclerotic calcifications Reproductive organs: No significant findings. Other: Shotty retroperitoneal lymph nodes. Prominent but subcentimeter short axis diameter inguinal lymph nodes. No free air, fluid or adenopathy Skeleton: No acute bony abnormality. IMPRESSION: Subtle, nonspecific groundglass opacities in both lungs could reflect atelectasis or pneumonitis. Prominent axillary lymph nodes, consistent with the given diagnosis of lymphoproliferative disorder. Prominent but subcentimeter short axis diameter nodes are present in the mediastinum and retroperitoneum. Hepatomegaly. Prominent spleen at the upper limits of normal for size. Signed: Samuel Martínez MD Report Verified Date/Time: 08/28/2017 02:21:40 Reading Location: [address] Reading Room Performing Organization Address City/State/Zipcode Phone Number [facility] * PT/aPTT (08/27/2017 10:50 AM OPERATING ROOM MANAGER) Only the most recent of 2 results within the time period is included. Protime 17.4 (H) 11.7 - 14.7 seconds [facility] INR 1.4 <=5.9 [facility] PTT 51.3 (H) 22.5 - 36.0 seconds [facility] Specimen Blood - Arm, Right Narrative Performed At RECOMMENDED COUMADIN/WARFARIN INR THERAPY RANGES [facility] STANDARD DOSE: 2.0 - 3.0 Includes: PROPHYLAXIS for venous thrombosis, [facility] systemic embolization; TREATMENT for venous thrombosis and/or pulmonary embolus. HIGH RISK: Target INR is 2.5-3.5 for patients with mechanical heart valves. Performing Organization Address City/State/Zipcode Phone Number [facility] [address] [place] [address] MEDICAL CENTER * Troponin I (08/27/2017 10:50 AM OPERATING ROOM MANAGER) Only the most recent of 3 results within the time period is included. Troponin I <0.01 0.00 - 0.03 ng/mL [facility] Specimen Blood - Arm, Right Narrative Performed At Troponin I (TnI) levels must be interpreted in the context of the presenting [facility] symptoms and the clinical findings. Elevated TnI levels indicate myocardial [facility] damage, but are not specific for ischemic heart disease. Elevated TnI levels are seen in patients with other cardiac conditions (including myocarditis and congestive heart failure), and slight TnI elevations occur in patients with other conditions, including sepsis, renal failure, acidosis, acute neurological disease, and persistent tachyarrhythmia. Performing Organization Address City/[facility] [place] [phone] [place] [address] * Fibrinogen (08/27/2017 10:50 AM OPERATING ROOM MANAGER) Only the most recent of 3 results within the time period is included. Fibrinogen 560 (H) 225 - 434 mg/dl [facility] Specimen Blood - Arm, Right Performing Organization Address [facility] [place] [place] [address] [facility] * D-dimer (08/27/2017 10:50 AM OPERATING ROOM MANAGER) Only the most recent of 2 results within the time period is included. D-Dimer, Quant 3.85 (H) <0.50 MG/L FEU [facility] Specimen Blood - Arm, Right Narrative Performed At Intended Use: The D-Dimer Assay can be used to aid in the diagnosis of Deep Vein [facility] Thrombosis (DVT) and Pulmonary Embolism Disease (PED). [facility] In patients with low pre-test probability, various studies concerning STA Liatest D-dimer test have reported that with a cutoff value of 0.50 MG/L FEU, the Negative Predictive Value (NPV) regarding the exclusion of thrombosis is within 95-100% range. Performing Organization Address [facility] Phone Number [address] [address] [facility] * Triglycerides (08/27/2017 10:50 AM OPERATING ROOM MANAGER) Only the most recent of 2 results within the time period is included. Triglycerides 326 mg/dL [facility] Specimen Blood - Arm, Right Narrative Performed At TRIGLYCERIDE REFERENCE RANGE [facility] Low Risk<150 [facility] Borderline Risk 150-199 High [id number] Very High Risk >=500 Performing Organization Address City/[facility] Phone Number [address] * Lactate dehydrogenase (LDH) (08/27/2017 10:50 AM OPERATING ROOM MANAGER) Only the most recent of 2 results within the time period is included. LDH 359 (H) 125 - 220 U/L [facility] Specimen Blood - Arm, Right Performing Organization Address [facility] [place] Phone Number [address] * Creatine Kinase (CK), Total and MB (08/27/2017 10:50 AM OPERATING ROOM MANAGER) Only the most recent of 2 results within the time period is included. Total CK 14 (L) 29 - 200 U/L [facility] CK-MB 0.3 0.0 - 6.6 ng/mL [facility] MB Relative Index 2.1 % [facility] Specimen Blood - Arm, Right Narrative Performed At CK-MB Reference Range: [facility] <6.7Normal [facility] 6.7-10.0Borderline >10.0 Abnormal Performing Organization Address [facility] [place] Phone Number [address] * TSH/Free T4 If Indicated (08/27/2017 5:18 AM OPERATING ROOM MANAGER) TSH 2.37 0.35 - 4.94 uIU/mL [facility] Specimen Blood Performing Organization Address City/[facility] Phone Number [facility] [place] [phone] * C-Reactive Protein (08/27/2017 5:18 AM OPERATING ROOM MANAGER) CRP 21.45 (H) 0.00 - 0.50 mg/dL [facility] Specimen Blood Performing Organization Address City/[facility] Phone Number [address] * Sedimentation rate (08/27/2017 5:18 AM OPERATING ROOM MANAGER) Sed Rate 75 (H) 0 - 30 mm/HR [facility] Specimen Blood Performing Organization Address [facility] [place] Phone Number [address] * Hemoglobin A1c (08/27/2017 5:18 AM OPERATING ROOM MANAGER) Hemoglobin A1C 5.9 4.3 - 6.1 % [facility] Specimen Blood Performing Organization Address [facility] Phone Number [address] * Lipid panel (08/27/2017 5:18 AM OPERATING ROOM MANAGER) Triglycerides 329 mg/dL [facility] Cholesterol 145 mg/dL [facility] HDL 16 mg/dL [facility] LDL Calculated 63 mg/dL [facility] Specimen Blood Narrative Performed At Triglyceride Reference Range: [facility] Low Risk <150 [facility] [id number] High Risk 200-499 Very High Risk>=500 Cholesterol Reference Range: Low Risk <200 [id number] High Risk>240 HDL Cholesterol Reference Range: Low Risk >=60 High Risk <40 LDL Cholesterol Reference Range: Optimal<100 Near [id number] [id number] [id number] Very High >=190 Performing Organization Address [facility] Phone Number [place] [phone] * POC-Lactic Acid, Venous (08/27/2017 2:50 AM OPERATING ROOM MANAGER) Only the most recent of 5 results within the time period is included. POC-Lactic Acid, Venous 0.6 (L)Comment: TESTED AT 0.9 - 1.7 mmol/L [facility] [address] [facility] [address] Specimen Blood Performing Organization Address City/State/Zipcode Phone Number [address] [address] [facility] * CRITICAL CARE (08/27/2017 12:25 AM OPERATING ROOM MANAGER) Narrative Performed At Iker Desai MD 08/27/2017 12:25 AM Critical Care Performed by: IKER DESAI Authorized by: IKER DESAI Total critical care time: 35 minutes Critical care time was exclusive of separately billable procedures and treating other patients. Critical care was necessary to treat or prevent imminent or life-threatening deterioration of the following conditions: sepsis. Critical care was time spent personally by me on the following activities: blood draw for specimens, development of treatment plan with patient or surrogate, evaluation of patient's response to treatment, examination of patient, obtaining history from patient or surrogate, ordering and performing treatments and interventions, ordering and review of laboratory studies, ordering and review of radiographic studies, pulse oximetry, re-evaluation of patient's condition and review of old charts. * Urinalysis w/ Microscopic (08/26/2017 11:16 PM OPERATING ROOM MANAGER) Only the most recent of 3 results within the time period is included. Color, UA Yellow [facility] Clarity, UA Clear [facility] Specific [place], UA 1.017 1.001 - 1.035 [facility] pH, UA 6.5 5.0 - 8.0 [facility] Protein, UA 70 mg/dL (A) Negative [facility] Glucose, UA Negative Negative [facility] Ketones, UA Negative Negative [facility] Bilirubin, UA Negative Negative [facility] Blood, UA Negative Negative [facility] Nitrite, UA Negative Negative [facility] Leukocytes, UA Negative Negative [facility] Urobilinogen, UA 0.2 0.2 - 1.0 mg/dL [facility] RBC, UA 1 /HPF [facility] WBC, UA 2 /HPF [facility] Bacteria, UA Rare [facility] Mucus Few [facility] Squam Epithel, UA <1 /HPF [facility] Hyaline Casts, UA 2 /LPF [facility] Granular Casts, UA 2 /LPF [facility] Amorphous Crystals Occasional [facility] Specimen Source Urine, Clean Catch [facility] Specimen Urine - Urine, Clean Catch Performing Organization Address City/[facility] Phone Number [address] * Urine culture (08/26/2017 11:16 PM OPERATING ROOM MANAGER) Only the most recent of 3 results within the time period is included. Result No growth [facility] Specimen Urine - Urine, Clean Catch Performing Organization Address City/[facility]/Zipcode Phone Number [address] * Influenza A H1N1 PCR (08/26/2017 10:10 PM OPERATING ROOM MANAGER) Only the most recent of 2 results within the time period is included. Influenza A RNA Not Detected, [facility] Novel H1N1 RNA Not Detected, [facility] Specimen Nasal - Nasal Mucosa Narrative Performed At These assays were performed by real-time RT-PCR (ship laborer-PCR) utilizing fluorogenic [facility] hydrolysis probe technology for the detection of human Influenza A viruses and [facility] the differential detection of novel H1N1 Influenza virus in respiratory specimens. The test is composed of (1) an RNA extraction from patient specimen, and (2) ship laborer-PCR amplification and detection with human Influenza A and novel [id number] primers and probes. A well-conserved region of the Influenza A matrix gene is targeted in one set of reactions to identify both seasonal Influenza A and novel H1N1 Influenza virus in the specimen.In addition, a specific region of the hemagglutinin gene is targeted to differentiate the novel H1N1 virus from the seasonal human influenza. An internal control is used to confirm PCR amplification.Genetic variation and other factors can affect the accuracy of nucleic acid testing; therefore, the results should be interpreted in light of clinical data. This test was developed and its performance characteristics determined by the [facility] Pathology Department, Section of Molecular Pathology.It has not been cleared or approved by the U.S. Food and Drug Administration (FDA).Since FDA approval is not required for clinical use of the test, validation was done as required by The Clinical Laboratory Amendments of 1988. These assays were performed by real-time RT-PCR (ship laborer-PCR) utilizing fluorogenic hydrolysis probe technology for the detection of human Influenza A viruses and the differential detection of novel H1N1 Influenza virus in respiratory specimens. The test is composed of (1) an RNA extraction from patient specimen, and (2) ship laborer-PCR amplification and detection with human Influenza A and novel [id number] primers and probes. A well-conserved region of the Influenza A matrix gene is targeted in one set of reactions to identify both seasonal Influenza A and novel H1N1 Influenza virus in the specimen.In addition, a specific region of the hemagglutinin gene is targeted to differentiate the novel H1N1 virus from the seasonal human influenza. An internal control is used to confirm PCR amplification.Genetic variation and other factors can affect the accuracy of nucleic acid testing; therefore, the results should be interpreted in light of clinical data. This test was developed and its performance characteristics determined by the [facility] Pathology Department, Section of Molecular Pathology.It has not been cleared or approved by the U.S. Food and Drug Administration (FDA).Since FDA approval is not required for clinical use of the test, validation was done as required by The Clinical Laboratory Amendments of 1988. Performing Organization Address City/State/Zipcode Phone Number [facility] [address] [address] [facility] * Blood culture #2 (08/26/2017 10:10 PM OPERATING ROOM MANAGER) Only the most recent of 5 results within the time period is included. Result No growth in 5 days [facility] Specimen Blood - Line, Venous Performing Organization Address City/[facility]/Zipcode Phone Number [address] [address] [facility] * Rapid influenza A&B screen (08/26/2017 10:10 PM OPERATING ROOM MANAGER) Only the most recent of 2 results within the time period is included. Rapid Influenza A Antigen Negative, Inconclusive [facility] Rapid influenza B Antigen Negative, Inconclusive [facility] Specimen Nasal - Nasal Mucosa Performing Organization Address [facility] Phone Number [address] [address] [facility] * XR chest 1 view portable / bedside (08/26/2017 10:00 PM OPERATING ROOM MANAGER) Only the most recent of 2 results within the time period is included. Narrative Performed At FINAL REPORT [facility] RAD, CHEST, 1 VIEW, NON DEPT INDICATION: FEVER COMPARISON: Chest x-ray 08/22/2017 TECHNIQUE: Single frontal view of the chest. IMPRESSION: Cardiomediastinal silhouette within normal limits. No overt consolidative or congestive change. No acute osseous abnormality. Signed: Roseann Coto MD Report Verified Date/Time:08/26/2017 22:02:21 Reading Location: [facility] B1 C013X Ortho Consult Reading Room Procedure Note Interface, External Ris In - 08/26/2017 10:04 PM OPERATING ROOM MANAGER FINAL REPORT RAD, CHEST, 1 VIEW, NON DEPT INDICATION: FEVER COMPARISON: Chest x-ray 08/22/2017 TECHNIQUE: Single frontal view of the chest. IMPRESSION: Cardiomediastinal silhouette within normal limits. No overt consolidative or congestive change. No acute osseous abnormality. Signed: Rosenan Coto MD Report Verified Date/Time: 08/26/2017 22:02:21 Reading Location: [facility] B1 C013X Ortho Consult Reading Room Performing Organization Address City/[facility]/Zipcode Phone Number [facility] * Manual Differential (08/25/2017 5:39 AM OPERATING ROOM MANAGER) Only the most recent of 5 results within the time period is included. % Neutros (manual) 63 % [facility] % Lymphs (manual) 22 % [facility] % Monos (manual) 7 % [facility] % Eos (manual) 3 % [facility] % Baso (manual) 0 % [facility] % Blasts (manual) 5 (H) 0 - 0 % [facility] # Neutros (manual) 4.22 1.80 - 8.00 K/L [facility] # Lymphs (manual) 1.47 (L) 1.48 - 4.50 K/L [facility] # Monos (manual) 0.47 0.00 - 1.30 K/L [facility] # Eos (manual) 0.20 0.00 - 0.50 K/L [facility] # Baso (manual) 0.00 0.00 - 0.20 K/L [facility] # Blasts (manual) 0.34 (H) 0.00 - 0.00 K/L [facility] Total Counted 100 [facility] WBC Morphology Normal [facility] Platelet Morphology Normal [facility] Anisocytosis 1+ few [facility] Spherocytes 1+ few [facility] Specimen Blood - Central Venous Line Performing Organization Address City/[facility]/Zipcode Phone Number [facility] [address] [address] [phone] * Prothrombin time/INR (08/24/2017 8:01 AM OPERATING ROOM MANAGER) Only the most recent of 3 results within the time period is included. Protime 14.5 11.7 - 14.7 seconds [facility] INR 1.1 <=5.9 [facility] Specimen Blood - Line, Arterial Narrative Performed At RECOMMENDED COUMADIN/WARFARIN INR THERAPY RANGES [facility] STANDARD DOSE: 2.0 - 3.0 Includes: PROPHYLAXIS for venous thrombosis, [facility] systemic embolization; TREATMENT for venous thrombosis and/or pulmonary embolus. HIGH RISK: Target INR is 2.5-3.5 for patients with mechanical heart valves. Performing Organization Address [facility] Phone Number [place] [phone] [place] [address] * Lactic acid, venous, whole blood Daily (08/24/2017 3:35 AM OPERATING ROOM MANAGER) Only the most recent of 5 results within the time period is included. Lactate, Venous 1.1 0.5 - 2.2 mmol/L [facility] Specimen Blood - Central Venous Line Narrative Performed At Effective 12/30/2015: Units/Reference Range Change [facility] New: 0.5-2.2 mmol/LPrevious: 5-20 mg/dL [facility] Performing Organization Address [facility] [place] Phone Number [address] [address] [phone] * Procalcitonin (08/23/2017 1:23 PM OPERATING ROOM MANAGER) Procalcitonin 6.08 (H) <0.05 ng/mL [facility] Specimen Blood - Line, Arterial Narrative Performed At SEPSIS RISK (ng/mL) [facility] Low:0.05-0.50 [facility] Intermediate: 0.51-2.00 High: >=2.01 Performing Organization Address [facility] [place] Phone Number [facility] [address] * Iron, TIBC, % sat. (without ferritin) (08/23/2017 1:23 PM OPERATING ROOM MANAGER) Iron 39 (L) 40 - 160 ug/dL [facility] TIBC 133 (L) 250 - 450 ug/dL [facility] Iron % Saturation 29 20 - 55 % [facility] Specimen Blood - Line, Arterial Performing Organization Address City/[facility] Phone Number [address] * aPTT (08/23/2017 1:23 PM OPERATING ROOM MANAGER) PTT 36.5 (H) 22.5 - 36.0 seconds [facility] Specimen Blood - Line, Arterial Performing Organization Address [facility] [place] Phone Number [address] * ECHOCARDIOGRAM REPORT - SCAN (08/23/2017 9:22 AM OPERATING ROOM MANAGER) Narrative Performed At * Lactic acid, arterial, whole blood (08/22/2017 10:47 PM OPERATING ROOM MANAGER) Lactate, Art 1.0 0.5 - 2.2 mmol/L [facility] Specimen Blood, Arterial - Line, Arterial Narrative Performed At Effective 12/30/2015: Units/Reference Range Change [facility] New: 0.5-2.2 mmol/LPrevious: 5-20 mg/dL [facility] Performing Organization Address [facility] Phone Number [address] * CRITICAL CARE (08/22/2017 9:32 PM OPERATING ROOM MANAGER) Narrative Performed At Sanaz Lucas MD 08/22/20179:32 PM Critical Care Performed by: SANAZ LUCAS Authorized by: GENA BOBO Total critical care time: 42 minutes Critical care time was exclusive of separately billable procedures and treating other patients. Critical care was necessary to treat or prevent imminent or life-threatening deterioration of the following conditions: sepsis and shock. Critical care was time spent personally by me on the following activities: development of treatment plan with patient or surrogate, discussions with consultants, evaluation of patient's response to treatment, examination of patient, obtaining history from patient or surrogate, ordering and performing treatments and interventions, ordering and review of laboratory studies, ordering and review of radiographic studies, pulse oximetry and re-evaluation of patient's condition. * US abdomen complete (08/22/2017 8:26 PM OPERATING ROOM MANAGER) Narrative Performed At FINAL REPORT [facility] HISTORY : Evaluation for source of sepsis COMPARISON : None COMMENT : Complete ultrasound examination of the abdomen was performed. The liver is homogenous in echo-texture without evidence of a focal mass. The gallbladder is not visualized. The biliary tract is within normal limits with the common bile duct measuring 5 mm in maximum diameter.The visualized portions of the pancreas are within normal limits. The spleen is enlarged measuring 13.4 cm in length. The right kidney measures 10.3 x 4.5 x 5.4 cm and the left kidney 10.3 x 5.0 x 5.1 cm in maximum size.There is no evidence of masses, stones or hydronephrosis. In the upper pole of the left kidney, there is a tiny cyst measuring up to 0.8 cm. The portal vein measures to a maximum of 0.9 cm in diameter. There is no ascites or pleural effusion. The visualized inferior vena cava, hepatic veins and abdominal aorta are within normal limits. The maximum diameter of the abdominal aorta is 1.7 cm. IMPRESSION : 1. Tiny left renal cyst. 2. Splenomegaly. 3. Mildly increased echogenicity of the kidneys, possibly due to underlying medical renal disease. 4. Gallbladder not visualized. Signed: Kamini Hooper MD Report Verified Date/Time:08/22/2017 20:48:43 Reading Location: [facility] C0W Consult Reading Room Procedure Note Interface, External Ris In - 08/22/2017 8:50 PM OPERATING ROOM MANAGER FINAL REPORT HISTORY : Evaluation for source of sepsis COMPARISON : None COMMENT : Complete ultrasound examination of the abdomen was performed. The liver is homogenous in echo-texture without evidence of a focal mass. The gallbladder is not visualized. The biliary tract is within normal limits with the common bile duct measuring 5 mm in maximum diameter. The visualized portions of the pancreas are within normal limits. The spleen is enlarged measuring 13.4 cm in length. The right kidney measures 10.3 x 4.5 x 5.4 cm and the left kidney 10.3 x 5.0 x 5.1 cm in maximum size. There is no evidence of masses, stones or hydronephrosis. In the upper pole of the left kidney, there is a tiny cyst measuring up to 0.8 cm. The portal vein measures to a maximum of 0.9 cm in diameter. There is no ascites or pleural effusion. The visualized inferior vena cava, hepatic veins and abdominal aorta are within normal limits. The maximum diameter of the abdominal aorta is 1.7 cm. IMPRESSION : 1. Tiny left renal cyst. 2. Splenomegaly. 3. Mildly increased echogenicity of the kidneys, possibly due to underlying medical renal disease. 4. Gallbladder not visualized. Signed: Kamini Hooper MD Report Verified Date/Time: 08/22/2017 20:48:43 Reading Location: [address] Consult Reading Room Performing Organization Address City/State/Zipcode Phone Number [facility] * 2D Echo W/Doppler (Sepsis Protocol) (08/22/2017 6:06 PM OPERATING ROOM MANAGER) Ejection Fraction [facility]CHO [facility]ART[facility] Narrative Performed At Transthoracic Echocardiography Report (TTE) [facility] ECHO [facility]ARTLAB Demographics [facility] Patient NameJENNY HERNANDEZ DEDate of Study 08/22/2017 OG GenderFemale Visit [id number] RaceUnknown Number [id number] Number Date of 1965 Referring Lance Dasilva Age 52 year(s) Master Dyer Dia [place] [facility] Needs to be Pre Physickellie n Read Giovanny Torres MD FellowKASIA [place] Procedure Type of Study TTE procedure:2DECHO W DOPPLER(CW/PW/COLOR) (STAT) Indications:Sepsis protocol. Clinical History HX:DM;LYMPHOMA HGB 13.3 HCT 43.4 % Height: 60 inches Weight: 48.99 kg (108 lbs) BSA: 1.44 m^2 BMI: 21.09 kg/m^2 HR: 132 bpm BP: 95/49 mmHg Summary Left ventricular endocardium is incompletely visualized without IV contrast. LV chamber size is normal. There is no LV hypertrophy. All of the segments appear to contract normally. Estimated ejection fraction by James's biplane method is normal (55-60%). Diastology cannot be ascertained due to fused E/A No pericardial effusion is visualized. The right ventricular chamber size and systolic function are within normal limits. Normal valve function No prior echo for comparison Previous Study No prior exam available for comparison. Signature Findings Rhythm/BPSinus tachycardia during the exam. Left Ventricle Left ventricular endocardium is incompletely visualized without IV contrast. LV chamber size is normal. There is no LV hypertrophy. All of the segments appear to contract normally. Estimated ejection fraction by James's biplane method is normal (55-60%). Diastology cannot be ascertained due to fused E/A Left AtriumLeft atrium is adequately visualized. Left atrial size is normal (16-34 mL/m2). Right VentricleThe right ventricular chamber size and systolic function are within normal limits. Right Atrium Right atrial size is normal. Atrial SeptumThe intraatrial septum is well visualized. Normal intraatrial septum by available views. Aortic Valve Normal aortic valve structure. No aortic stenosis. No aortic regurgitation. Mitral Valve Normal mitral structure. No mitral stenosis. No mitral regurgitation. Tricuspid ValveTricuspid structure is normal. No tricuspid regurgitation. Unable to assess pulmonary artery systolic pressure. Inadequate TR velocity signal. Pulmonic Valve Normal pulmonic valve structure and function. AortaAortic root size (sinus of Valsalva diameter) is normal. Visualized aortic arch is normal. PericardiumNo pericardial effusion is visualized. IVC/SVC/PA/PV/PleuralThe inferior vena cava is adequately visualized. The IVC size is normal with respiratory variation. Estimated right atrial pressure is 5-10 mmHg. Chambers/Structures Left Atrium LA Volume: 24.43 ml LA Area: 11.62 cm^2 LA Vol. Index: 17 ml/m^2 Left Ventricle LVIDd: 3.64 cm LVIDs: 2.12 cm LV FS: 41.8 % LVEDV James's:53.05 ml LVESV James's:22.06 mlLVEDVI: 37 ml/m^2 LVEF James's: 58.4 %LVESVI: 15 ml/m^2 Doppler/Quantitative Measurements Mitral Valve MV Eugene. Peak: Tissue Doppler E' Septal Velocity: 0.12 m/s E' Lateral Velocity: 0.16 m/s Aortic Valve Peak Velocity: 1.67 m/s Mean Velocity: 1.06 m/s Peak Gradient: 11.22 mmHg Mean Gradient: 5.49 mmHg AV VTI: 21.96 cm AV DVI: 0.81 LVOT Peak Velocity: 1.33 m/s Peak Gradient: 7.13 mmHg Mean Velocity: 0.98 m/s Mean Gradient: 4.4 mmHg LVOT VTI: 17.89 cm Procedure Note Interface, External Ris In - 08/23/2017 8:46 AM OPERATING ROOM MANAGER Transthoracic Echocardiography Report (TTE) Demographics Patient Name JENNY HERNANDEZ Date of Study 08/22/2017 OG Gender Female Visit Number [id number] Race Unknown Room Number [id number] Number Date of 1965 Referring Lance Garza Physician Brown Age 52 year(s) Master Dyer Dia Ramirez RDCS Interpreting [facility] Needs to be Pre Physician Read Giovanny Torres MD Fellow KAS[facility] [place] Procedure Type of Study TTE procedure:2DECHO W DOPPLER(CW/PW/COLOR) (STAT) Indications:Sepsis protocol. Clinical History HX:DM;LYMPHOMA HGB 13.3 HCT 43.4 % Height: 60 inches Weight: 48.99 kg (108 lbs) BSA: 1.44 m^2 BMI: 21.09 kg/m^2 HR: 132 bpm BP: 95/49 mmHg Summary Left ventricular endocardium is incompletely visualized without IV contrast. LV chamber size is normal. There is no LV hypertrophy. All of the segments appear to contract normally. Estimated ejection fraction by James's biplane method is normal (55-60%). Diastology cannot be ascertained due to fused E/A No pericardial effusion is visualized. The right ventricular chamber size and systolic function are within normal limits. Normal valve function No prior echo for comparison Previous Study No prior exam available for comparison. Signature Findings Rhythm/BP Sinus tachycardia during the exam. Left Ventricle Left ventricular endocardium is incompletely visualized without IV contrast. LV chamber size is normal. There is no LV hypertrophy. All of the segments appear to contract normally. Estimated ejection fraction by James's biplane method is normal (55-60%). Diastology cannot be ascertained due to fused E/A Left Atrium Left atrium is adequately visualized. Left atrial size is normal (16-34 mL/m2). Right Ventricle The right ventricular chamber size and systolic function are within normal limits. Right Atrium Right atrial size is normal. Atrial Septum The intraatrial septum is well visualized. Normal intraatrial septum by available views. Aortic Valve Normal aortic valve structure. No aortic stenosis. No aortic regurgitation. Mitral Valve Normal mitral structure. No mitral stenosis. No mitral regurgitation. Tricuspid Valve Tricuspid structure is normal. No tricuspid regurgitation. Unable to assess pulmonary artery systolic pressure. Inadequate TR velocity signal. Pulmonic Valve Normal pulmonic valve structure and function. Aorta Aortic root size (sinus of Valsalva diameter) is normal. Visualized aortic arch is normal. Pericardium No pericardial effusion is visualized. IVC/SVC/PA/PV/Pleural The inferior vena cava is adequately visualized. The IVC size is normal with respiratory variation. Estimated right atrial pressure is 5-10 mmHg. Chambers/Structures Left Atrium LA Volume: 24.43 ml LA Area: 11.62 cm^2 LA Vol. Index: 17 ml/m^2 Left Ventricle LVIDd: 3.64 cm LVIDs: 2.12 cm LV FS: 41.8 % LVEDV James's:53.05 ml LVESV James's:22.06 ml LVEDVI: 37 ml/m^2 LVEF James's: 58.4 % LVESVI: 15 ml/m^2 Doppler/Quantitative Measurements Mitral Valve MV Eugene. Peak: Tissue Doppler E' Septal Velocity: 0.12 m/s E' Lateral Velocity: 0.16 m/s Aortic Valve Peak Velocity: 1.67 m/s Mean Velocity: 1.06 m/s Peak Gradient: 11.22 mmHg Mean Gradient: 5.49 mmHg AV VTI: 21.96 cm AV DVI: 0.81 LVOT Peak Velocity: 1.33 m/s Peak Gradient: 7.13 mmHg Mean Velocity: 0.98 m/s Mean Gradient: 4.4 mmHg LVOT VTI: 17.89 cm Performing Organization Address City/[facility]/Zipcode Phone Number [facility]CHO [facility] * Lipase (08/22/2017 5:13 PM OPERATING ROOM MANAGER) Lipase 13 8 - 78 U/L [facility] Specimen Blood Performing Organization Address City/[facility]/Zipcode Phone Number [facility] [address] [place] [address] [facility] * XR chest PA or AP 1 view in dept (08/22/2017 2:09 PM OPERATING ROOM MANAGER) Narrative Performed At FINAL REPORT [facility] Chest, AP view. History: Cough. Comparison: None available. Discussion:The cardiomediastinal silhouette and pulmonary vasculature are within normal limits. The lungs are clear without evidence of consolidation or effusion.There are no acute osseous abnormalities. The soft tissues are unremarkable. IMPRESSION: No acute cardiopulmonary abnormality. Signed: Rhianna Mcdonough MD Report Verified Date/Time:08/22/2017 14:18:00 Reading Location: [facility] Procedure Note Interface, External Ris In - 08/22/2017 2:20 PM OPERATING ROOM MANAGER FINAL REPORT Chest, AP view. History: Cough. Comparison: None available. Discussion: The cardiomediastinal silhouette and pulmonary vasculature are within normal limits. The lungs are clear without evidence of consolidation or effusion. There are no acute osseous abnormalities. The soft tissues are unremarkable. IMPRESSION: No acute cardiopulmonary abnormality. Signed: Rhianna Mcdonough MD Report Verified Date/Time: 08/22/2017 14:18:00 Reading Location: [facility] Performing Organization Address City/State/[facility] Phone Number GE RIS * ECG 12 lead (08/22/2017 1:54 PM OPERATING ROOM MANAGER) Narrative Performed At Ventricular Rate 117 BPM GE MUSE Atrial Rate 117 BPM P-R Interval 130 ms QRS Duration 70 ms Q-T Interval 310 ms QTC Calculation(Bazett) 432 ms P [place] 52 degrees R [place] 75 degrees T [place] 31 degrees Sinus tachycardia Otherwise normal ECG No previous ECGs available Confirmed by Tiffany JIMENEZ MICHAEL ([id number]) on 08/23/2017 8:40:34 AM Procedure Note Interface, External Ris In - 08/23/2017 8:40 AM OPERATING ROOM MANAGER Ventricular Rate 117 BPM Atrial Rate 117 BPM P-R Interval 130 ms QRS Duration 70 ms Q-T Interval 310 ms QTC Calculation(Bazett) 432 ms P [place] 52 degrees R [place] 75 degrees T [place] 31 degrees Sinus tachycardia Otherwise normal ECG No previous ECGs available Confirmed by Tiffany JIMENEZ MICHAEL ([id number]) on 08/23/2017 8:40:34 AM Performing Organization Address City/State/[facility] Phone Number GE MUSE after 06/30/2017 Insurance Payer Benefit Subscriber ID Type Phone Address Plan / Group [employer] DAV[employer] xxxxxxxxxx [employer] E EXCHANGE Advance Directives For more information, please contact: [facility] [address] [place] [address] Date Inactivated Comments Code Status Date Activated 08/31/2017 5:01 PM Full Code 08/26/2017 9:49 PM This code status was determined by: Patient 08/25/2017 8:34 PM Full Code 08/22/2017 3:44 PM This code status was determined by: Patient 08/22/2017 3:44 PM Full Code 08/22/2017 1:22 PM This code status was determined by: Patient
--- OUTSIDE RECORDS SUMMARY | 2018-07-01 15:23 | XMS REPORT | Summary of Care ---
Author Author [facility] [place] Organization [facility] [place] Address Unknown Phone Unavailable Encounter HQ Encntr_alias(FIN) [id number] Date(s): 02/15/17 - 02/15/17 [facility] [place] [address] [place] [address] [phone] Discharge Disposition: Home or Self Care Attending [...]
--- OUTSIDE RECORDS SUMMARY | 2018-07-01 15:23 | XMS REPORT | Continuity of Care Document ---
Author [facility] Address Unknown Phone Unavailable Problems Problem Status Onset Date Classification Date Reported Comments Source R63.0 - ANOREXIA Active 02/08/2017 [facility] [place] Medications Medication Details Route Status Patient Instructions Ordering Provider Order Date Source Allergies, Adverse Reactions, Alerts Substance Category Reaction Severity Reaction type Status Date Reported Comments Source Immunizations Immunization Date Given Site Status Last Updated Comments Source Results Order Name Results Value Reference Range Date Interpretation Comments Source Abdomen complete US Abdomen complete US Exam: Abdominal Ultrasound Reason for Exam: R63.0 Anorexia - R63.0 Anorexia Comparison Exam: None Discussion: Multiple axial and sagittal images were obtained of the abdomen. The liver is of normal size and echogenicity. No focal hepatic masses identified. No intrahepatic or extrahepatic biliary duct dilation, with the common bile duct measuring 0.4 cm. 2 gallstones are seen measuring up to 1.5 cm. No gallbladder wall thickening or pericholecystic fluid. Sonographic Montiel's sign is negative. The visualized portions of the pancreatic head and proximal body are within normal limits. The spleen is of normal echogenicity measuring 12.8 cm in length. The visualized portions of the upper abdominal aorta and IVC are unremarkable. No evidence seen for ascites. The right kidney measures 9.8 x 5.1 x 3.8 cm. It is of unremarkable echogenicity without evidence for focal masses, hydronephrosis, or shadowing renal calculi. The left kidney measures 10.2 x 5.1 x 4.6 cm. It is of unremarkable echogenicity without evidence for focal masses, hydronephrosis, or shadowing renal calculi. Impression: 1. Cholelithiasis without sonographic evidence to suggest cholecystitis. 02/15/2017 - - Read by: Richi Tavarez MD Dictated Date/time: 02/15/17 09:27 Electronically Signed by: Richi Tavarez MD 02/15/17 09:30 FINAL REPORT [facility] [place] Chest 2 views DX Chest 2 views DX Exam: Two-view chest x-ray Reason for Exam: - weight loss, unintentional Comparison Exam: X-ray 08/16/2013 Discussion: Cardiomediastinal silhouette is within normal limits. Both hemidiaphragms well visualized. No pulmonary edema or pleural effusions. No focal lung consolidations. No suspicious pulmonary nodules identified. Trachea is midline. No acute bony abnormalities. 2 peripherally calcified radiodensity seen overlying the right upper quadrant of the abdomen, likely representing cholelithiasis. Impression: 1. No suspicious pulmonary nodules identified. 02/14/2017 - - Read by: Richi Tavarez MD Dictated Date/time: 02/14/17 11:33 Electronically Signed by: Richi Tavarez MD 02/14/17 11:36 FINAL REPORT [facility] Chest 2 views Chest 2 views EXAMINATION: Chest x-ray 2 views COMPARISON: NONE AVAILABLE COMMENTS: The heart and pulmonary vasculature are within normal limits. No focal consolidation or significant pleural fluid collection is appreciated. No suspicious osseous pathology. IMPRESSION: NO ACUTE CARDIOPULMONARY ABNORMALITY. 08/16/2013 - - Read by: Gordy Olivares Dictated Date/time: 08/16/13 13:02 Electronically Signed by: Gordy Olivares MD 08/16/13 13:03 FINAL REPORT [facility] Vital Signs Vital Sign Value Date Comments Source Encounters Location Location Details Encounter Type Encounter Number Reason For Visit Attending Provider ADM Date DC Date Status Source [facility] [place] [facility] [id number] Stevan Andrews 02/14/2017 02/15/2017 [facility] [place] [facility] [id number] Stevan Andrews 02/15/2017 02/16/2017 [facility] Procedures Procedure Code Date Perfomer Comments Source
--- OUTSIDE RECORDS SUMMARY | 2018-07-01 15:24 | XMS REPORT ---
Author [facility] Address Unknown Phone Unavailable Care Team Providers Care Director Quality Systems Name Role Phone MUNA LALO LIGIA Unavailable Unavailable KRUNAL SORIANO Unavailable Unavailable AYSE ANDERSON Unavailable Unavailable Problems This patient has no known problems. Allergies, Adverse Reactions, Alerts This patient has no known allergies or adverse reactions. Medications This patient has no known medications. Results Test Description Test Time Test Comments Text Results Atomic Results Result Comments POCT-GLUCOSE METER 2017-11-10 10:07:00 POC-GLUCOSE METER (BEAKER) (test opuh=5020) 145 mg/dL 70-110 TESTED AT [facility] [address] [facility] [address] POCT-GLUCOSE [id number] 09:11:00* Test Item Value Reference Range Comments POC-GLUCOSE METER (BEAKER) (test vbib=5733) 71 mg/dL 70-110 TESTED AT [place] [id number] [facility] [address] BLOOD [id number] 05:01:00* Test Item Value Reference Range Comments CULTURE (BEAKER) (test dlfs=0470) No growth in 5 days BLOOD [id number] 05:01:00* Test Item Value Reference Range Comments CULTURE (BEAKER) (test qfcs=7776) No growth in 5 days POCT-GLUCOSE [id number] 12:20:00* Test Item Value Reference Range Comments POC-GLUCOSE METER (BEAKER) (test etup=0592) 209 mg/dL 70-110 TESTED AT [facility] [address] [facility] [address] POCT-GLUCOSE [id number] 07:45:00* Test Item Value Reference Range Comments POC-GLUCOSE METER (BEAKER) (test hcpa=1856) 118 mg/dL 70-110 TESTED AT [facility] [address] [address] COMPREHENSIVE METABOLIC [id number] 06:16:00* Test Item Value Reference Range Comments TOTAL PROTEIN (BEAKER) (test kpjw=329) 5.8 gm/dL 6.0-8.3 ALBUMIN (BEAKER) (test nwtg=1725) 2.6 g/dL 3.5-5.0 ALKALINE PHOSPHATASE (BEAKER) (test dfrb=701) 95 U/L 40-150 BILIRUBIN TOTAL (BEAKER) (test ayrg=212) 0.4 mg/dL 0.2-1.2 SODIUM (BEAKER) (test almv=229) 140 meq/L 136-145 POTASSIUM (BEAKER) (test figa=589) 3.6 meq/L 3.5-5.1 CHLORIDE (BEAKER) (test qsfj=254) 107 meq/L 98-107 CO2 (BEAKER) (test smaq=116) 25 meq/L 22-29 BLOOD UREA NITROGEN (BEAKER) (test uixz=701) 15 mg/dL 7-21 CREATININE (BEAKER) (test wmzv=086) 0.54 mg/dL 0.57-1.25 GLUCOSE RANDOM (BEAKER) (test qchj=525) 135 mg/dL 70-105 CALCIUM (BEAKER) (test dlwz=883) 8.4 mg/dL 8.4-10.2 AST (SGOT) (BEAKER) (test xzfz=794) 19 U/L 5-34 ALT (SGPT) (BEAKER) (test qytz=856) 19 U/L 6-55 EGFR (BEAKER) (test irmo=9808) 118 mL/min/1.73 sq m ESTIMATED GFR IS NOT ACCURATE CREATININE CLEARANCE IN PREDICTING GLOMERULAR FILTRATION RATE. ESTIMATED GFR IS NOT APPLICABLE FOR DIALYSIS PATIENTS. CBC W/PLT COUNT & AUTO [id number] 05:35:00* Test Item Value Reference Range Comments WHITE BLOOD CELL COUNT (BEAKER) (test truf=500) 5.8 K/ L 3.5-10.5 RED BLOOD CELL COUNT (BEAKER) (test jcvc=463) 3.30 M/ L 3.93-5.22 HEMOGLOBIN (BEAKER) (test dnik=060) 8.1 GM/DL 11.2-15.7 HEMATOCRIT (BEAKER) (test tfxx=962) 27.0 % 34.1-44.9 MEAN CORPUSCULAR VOLUME (BEAKER) (test mhfq=731) 81.8 fL 79.4-94.8 MEAN CORPUSCULAR HEMOGLOBIN (BEAKER) (test zlmp=228) 24.5 pg 25.6-32.2 MEAN CORPUSCULAR HEMOGLOBIN CONC (BEAKER) (test jcwe=115) 30.0 GM/DL 32.2-35.5 RED CELL DISTRIBUTION WIDTH (BEAKER) (test uurf=784) 19.2 % 11.7-14.4 PLATELET COUNT (BEAKER) (test ijjr=597) 104 K/CU MM 150-450 MEAN PLATELET VOLUME (BEAKER) (test raqq=791) 10.8 fL 9.4-12.3 NUCLEATED RED BLOOD CELLS (BEAKER) (test zysl=742) 0 /100 WBC 0-0 NEUTROPHILS RELATIVE PERCENT (BEAKER) (test mnkx=734) 76 % LYMPHOCYTES RELATIVE PERCENT (BEAKER) (test opjt=962) 17 % MONOCYTES RELATIVE PERCENT (BEAKER) (test hlbe=683) 4 % EOSINOPHILS RELATIVE PERCENT (BEAKER) (test vnfr=045) 2 % BASOPHILS RELATIVE PERCENT (BEAKER) (test xmyp=064) 0 % NEUTROPHILS ABSOLUTE COUNT (BEAKER) (test uzdf=751) 4.44 K/ L 1.56-6.13 LYMPHOCYTES ABSOLUTE COUNT (BEAKER) (test wsay=777) 1.01 K/ L 1.18-3.74 MONOCYTES ABSOLUTE COUNT (BEAKER) (test hqnn=648) 0.21 K/ L 0.24-0.36 EOSINOPHILS ABSOLUTE COUNT (BEAKER) (test hscs=187) 0.10 K/ L 0.04-0.36 BASOPHILS ABSOLUTE COUNT (BEAKER) (test opxk=567) 0.00 K/ L 0.01-0.08 IMMATURE GRANULOCYTES-RELATIVE PERCENT (BEAKER) (test bnwq=8060) 1 % 0-1 POCT-GLUCOSE [id number] 21:41:00* Test Item Value Reference Range Comments POC-GLUCOSE METER (BEAKER) (test gzdj=7115) 202 mg/dL 70-110 TESTED AT [address] [address] POCT-GLUCOSE [id number] 17:47:00* Test Item Value Reference Range Comments POC-GLUCOSE METER (BEAKER) (test pglt=5394) 215 mg/dL 70-110 TESTED AT [address] [address] POCT-GLUCOSE [id number] 13:41:00* Test Item Value Reference Range Comments POC-GLUCOSE METER (BEAKER) (test txvv=5660) 300 mg/dL 70-110 TESTED AT [facility] [address] [address] CBC W/PLT COUNT & AUTO [id number] 07:51:00* Test Item Value Reference Range Comments WHITE BLOOD CELL COUNT (BEAKER) (test mjzn=743) 10.0 K/ L 3.5-10.5 RED BLOOD CELL COUNT (BEAKER) (test heww=128) 3.62 M/ L 3.93-5.22 HEMOGLOBIN (BEAKER) (test qgrm=962) 9.0 GM/DL 11.2-15.7 HEMATOCRIT (BEAKER) (test xnlm=693) 29.6 % 34.1-44.9 MEAN CORPUSCULAR VOLUME (BEAKER) (test ifka=510) 81.8 fL 79.4-94.8 MEAN CORPUSCULAR HEMOGLOBIN (BEAKER) (test kzxs=448) 24.9 pg 25.6-32.2 MEAN CORPUSCULAR HEMOGLOBIN CONC (BEAKER) (test lzdq=412) 30.4 GM/DL 32.2-35.5 RED CELL DISTRIBUTION WIDTH (BEAKER) (test hvsv=090) 19.4 % 11.7-14.4 PLATELET COUNT (BEAKER) (test umgm=883) 102 K/CU MM 150-450 MEAN PLATELET VOLUME (BEAKER) (test vftq=573) 11.2 fL 9.4-12.3 NUCLEATED RED BLOOD CELLS (BEAKER) (test bpjd=385) 0 /100 WBC 0-0 NEUTROPHILS RELATIVE PERCENT (BEAKER) (test zpvc=609) 92 % LYMPHOCYTES RELATIVE PERCENT (BEAKER) (test obkk=177) 3 % MONOCYTES RELATIVE PERCENT (BEAKER) (test tgqc=927) 2 % EOSINOPHILS RELATIVE PERCENT (BEAKER) (test eobg=273) 2 % BASOPHILS RELATIVE PERCENT (BEAKER) (test mkes=992) 0 % NEUTROPHILS ABSOLUTE COUNT (BEAKER) (test vqjw=894) 9.18 K/ L 1.56-6.13 LYMPHOCYTES ABSOLUTE COUNT (BEAKER) (test aqks=867) 0.31 K/ L 1.18-3.74 MONOCYTES ABSOLUTE COUNT (BEAKER) (test ulht=736) 0.17 K/ L 0.24-0.36 EOSINOPHILS ABSOLUTE COUNT (BEAKER) (test kccu=602) 0.17 K/ L 0.04-0.36 BASOPHILS ABSOLUTE COUNT (BEAKER) (test ysuy=013) 0.02 K/ L 0.01-0.08 IMMATURE GRANULOCYTES-RELATIVE PERCENT (BEAKER) (test okgn=2702) 2 % 0-1 POCT-GLUCOSE [id number] 07:39:00* Test Item Value Reference Range Comments POC-GLUCOSE METER (BEAKER) (test qkpv=0798) 85 mg/dL 70-110 TESTED AT [facility] [address] [address] COMPREHENSIVE METABOLIC [id number] 07:00:00* Test Item Value Reference Range Comments TOTAL PROTEIN (BEAKER) (test akib=763) 5.5 gm/dL 6.0-8.3 ALBUMIN (BEAKER) (test gaom=6410) 2.4 g/dL 3.5-5.0 ALKALINE PHOSPHATASE (BEAKER) (test qucg=711) 82 U/L 40-150 BILIRUBIN TOTAL (BEAKER) (test oqun=113) 0.8 mg/dL 0.2-1.2 SODIUM (BEAKER) (test cfin=001) 141 meq/L 136-145 POTASSIUM (BEAKER) (test qvyc=640) 2.8 meq/L 3.5-5.1 CHLORIDE (BEAKER) (test wynr=522) 107 meq/L 98-107 CO2 (BEAKER) (test aeih=494) 24 meq/L 22-29 BLOOD UREA NITROGEN (BEAKER) (test nuyn=811) 11 mg/dL 7-21 CREATININE (BEAKER) (test akur=405) 0.56 mg/dL 0.57-1.25 GLUCOSE RANDOM (BEAKER) (test zwie=585) 98 mg/dL 70-105 CALCIUM (BEAKER) (test ckux=749) 7.7 mg/dL 8.4-10.2 AST (SGOT) (BEAKER) (test mcdb=408) 16 U/L 5-34 ALT (SGPT) (BEAKER) (test kwpf=894) 10 U/L 6-55 EGFR (BEAKER) (test ajqa=1500) 113 mL/min/1.73 sq m ESTIMATED GFR IS NOT ACCURATE CREATININE CLEARANCE IN PREDICTING GLOMERULAR FILTRATION RATE. ESTIMATED GFR IS NOT APPLICABLE FOR DIALYSIS PATIENTS. [id number] 06:58:00* Test Item Value Reference Range Comments MAGNESIUM (GRACIELA) (test wzcs=137) 1.6 mg/dL 1.6-2.6 POCT-GLUCOSE [id number] 21:17:00* Test Item Value Reference Range Comments POC-GLUCOSE METER (BEAKER) (test fjnw=8699) 212 mg/dL 70-110 TESTED AT [address] [address] HEPATITIS B PCR, [id number] 21:11:00* Test Item Value Reference Range Comments HBV RESULT COMPONENT (GRACIELA) (test umuu=3891) HBV DNA not detected HBV DNA not detected This test uses a Real-Time Polymerase Chain Reaction (RT-PCR) methodology and wa s performed using [employer] AmpliPrep/FELIPA TaqMan HBV Test, v2.0 ([employer]Reportable range for this assay is 20 - 170,000,000 IU per mL ( 1.30 - 8.23 Log IU/mL).POCT-GLUCOSE [id number] 17:33:00* Test Item Value Reference Range Comments POC-GLUCOSE METER (DARRIONAKER) (test dqzz=9308) 193 mg/dL 70-110 TESTED AT [address] [address] EBV VIRAL [id number] 16:05:00* Test Item Value Reference Range Comments EBV VIRAL LOAD - NEGATIVE (GRACIELA) (test gtzi=9670) Negative or below the linear range of the assay (<500 copies/mL) This assay was performed by real-time PCR for the detection of the Elizabeth-Garnett virus (EBV) gene EBNA-1. The test is composed of (1) DNA extraction from patien t specimen, and (2) real-time PCR amplification and detection with OCYR-9-jzqyum ic primers and probes. A well-conserved region of the EBNA-1 gene is targeted, a long with an internal control sequence used to confirm PCR amplification. Asympt omatic carriers and viral genetic variation, among other factors, can affect the accuracy of nucleic acid testing; therefore, results should be interpreted in l ight of clinical data.This test was developed and its performance characteristic s determined by the [facility] Pathology Department, Section of [facility]. It has not been cleared or approved by the U.S. Food and Burke g Administration (FDA), since FDA approval is not required for clinical use of t he test. Validation was done as required by The Clinical Laboratory Improvement Amendments of 1988.POCT-GLUCOSE [id number] 11:50:00* Test Item Value Reference Range Comments POC-GLUCOSE METER (BEAKER) (test eeco=7411) 142 mg/dL 70-110 TESTED AT [facility] [address] [address] POCT-GLUCOSE [id number] 07:29:00* Test Item Value Reference Range Comments POC-GLUCOSE METER (BEAKER) (test bqmt=0420) 82 mg/dL 70-110 TESTED AT [place] [id number] [facility] [address] CRYPTOCOCCAL [id number] 06:34:00* Test Item Value Reference Range Comments CRYPTOCOCCAL ANTIGEN, SERUM (BEAKER) (test fsrc=8734) Negative Negative, Interference [id number] 05:57:00* Test Item Value Reference Range Comments FERRITIN (BEAKER) (test homv=954) 6028 ng/mL 5-275 [id number] 05:01:00* Test Item Value Reference Range Comments MAGNESIUM (BEAKER) (test ukmp=668) 1.8 mg/dL 1.6-2.6 Specimen slightly hemolyzed [id number] 05:01:00* Test Item Value Reference Range Comments PHOSPHORUS (BEAKER) (test frge=544) 2.8 mg/dL 2.3-4.7 Specimen slightly hemolyzed BASIC METABOLIC [id number] 05:01:00* Test Item Value Reference Range Comments SODIUM (BEAKER) (test oeyi=659) 139 meq/L 136-145 POTASSIUM (BEAKER) (test eofh=102) 3.6 meq/L 3.5-5.1 Specimen slightly hemolyzed CHLORIDE (BEAKER) (test orru=895) 107 meq/L 98-107 CO2 (BEAKER) (test tnxg=204) 25 meq/L 22-29 BLOOD UREA NITROGEN (BEAKER) (test elsx=923) 10 mg/dL 7-21 CREATININE (BEAKER) (test qzdw=581) 0.51 mg/dL 0.57-1.25 Specimen slightly hemolyzed GLUCOSE RANDOM (BEAKER) (test powk=060) 123 mg/dL 70-105 CALCIUM (BEAKER) (test cyqh=325) 8.0 mg/dL 8.4-10.2 EGFR (BEAKER) (test mglu=9305) 126 mL/min/1.73 sq m ESTIMATED GFR IS NOT ACCURATE CREATININE CLEARANCE IN PREDICTING GLOMERULAR FILTRATION RATE. ESTIMATED GFR IS NOT APPLICABLE FOR DIALYSIS PATIENTS. HEPATIC FUNCTION [id number] 05:01:00* Test Item Value Reference Range Comments TOTAL PROTEIN (BEAKER) (test isrr=228) 5.7 gm/dL 6.0-8.3 Specimen slightly hemolyzed ALBUMIN (BEAKER) (test vcom=6511) 2.4 g/dL 3.5-5.0 Specimen slightly hemolyzed BILIRUBIN TOTAL (BEAKER) (test shci=483) 0.3 mg/dL 0.2-1.2 Specimen slightly hemolyzed BILIRUBIN DIRECT (BEAKER) (test zbqm=551) 0.2 mg/dL 0.1-0.5 Specimen slightly hemolyzed ALKALINE PHOSPHATASE (BEAKER) (test uwui=115) 61 U/L 40-150 AST (SGOT) (BEAKER) (test dvas=369) 12 U/L 5-34 Specimen slightly hemolyzed ALT (SGPT) (BEAKER) (test fkgj=238) 10 U/L 6-55 Specimen slightly hemolyzed CBC W/PLT COUNT & AUTO [id number] 04:53:00* Test Item Value Reference Range Comments WHITE BLOOD CELL COUNT (BEAKER) (test pyyf=249) 6.4 K/ L 3.5-10.5 RED BLOOD CELL COUNT (BEAKER) (test jugd=974) 3.54 M/ L 3.93-5.22 HEMOGLOBIN (BEAKER) (test godz=205) 9.0 GM/DL 11.2-15.7 HEMATOCRIT (BEAKER) (test unvr=247) 29.5 % 34.1-44.9 MEAN CORPUSCULAR VOLUME (BEAKER) (test ukbh=265) 83.3 fL 79.4-94.8 MEAN CORPUSCULAR HEMOGLOBIN (BEAKER) (test yads=802) 25.4 pg 25.6-32.2 MEAN CORPUSCULAR HEMOGLOBIN CONC (BEAKER) (test yvbj=704) 30.5 GM/DL 32.2-35.5 RED CELL DISTRIBUTION WIDTH (BEAKER) (test qurx=030) 19.8 % 11.7-14.4 PLATELET COUNT (BEAKER) (test hugg=786) 106 K/CU MM 150-450 MEAN PLATELET VOLUME (BEAKER) (test uasf=869) fL 9.4-12.3 Unable to report due to abnormal Platelet population distribution. NUCLEATED RED BLOOD CELLS (BEAKER) (test rfai=863) 0 /100 WBC 0-0 NEUTROPHILS RELATIVE PERCENT (BEAKER) (test dtqq=750) 86 % LYMPHOCYTES RELATIVE PERCENT (BEAKER) (test jwpa=638) 9 % MONOCYTES RELATIVE PERCENT (BEAKER) (test ztnz=618) 2 % EOSINOPHILS RELATIVE PERCENT (BEAKER) (test mhik=040) 3 % BASOPHILS RELATIVE PERCENT (BEAKER) (test hxuy=721) 0 % NEUTROPHILS ABSOLUTE COUNT (BEAKER) (test txfa=287) 5.49 K/ L 1.56-6.13 LYMPHOCYTES ABSOLUTE COUNT (BEAKER) (test lnif=621) 0.60 K/ L 1.18-3.74 MONOCYTES ABSOLUTE COUNT (BEAKER) (test syhq=701) 0.13 K/ L 0.24-0.36 EOSINOPHILS ABSOLUTE COUNT (BEAKER) (test ducw=934) 0.16 K/ L 0.04-0.36 BASOPHILS ABSOLUTE COUNT (BEAKER) (test mzhh=954) 0.01 K/ L 0.01-0.08 IMMATURE GRANULOCYTES-RELATIVE PERCENT (BEAKER) (test adph=6594) 1 % 0-1 VANCOMYCIN LEVEL, [id number] 23:47:00* Test Item Value Reference Range Comments VANCOMYCIN TROUGH (BEAKER) (test chhz=135) 6.1 ug/mL 10.0-20.0 POCT-GLUCOSE [id number] 21:40:00* Test Item Value Reference Range Comments POC-GLUCOSE METER (BEAKER) (test ruut=3295) 189 mg/dL 70-110 TESTED AT [facility] [address] [address] POCT-GLUCOSE [id number] 17:17:00* Test Item Value Reference Range Comments POC-GLUCOSE METER (BEAKER) (test cyzp=0561) 184 mg/dL 70-110 TESTED AT [facility] [address] [address] INFLUENZA A H1N1 [id number] 16:54:00* Test Item Value Reference Range Comments INFLUENZA A RNA (BEAKER) (test igrw=0225) Not Detected Not Detected, Inconclusive NOVEL H1N1 RNA (BEAKER) (test hwdj=4685) Not Detected Not Detected, Inconclusive These assays were performed by real-time RT-PCR (fourchette sewer-PCR) utilizing fluorogenic hydrolysis probe technology for the detection of human Influenza A viruses and t he differential detection of novel H1N1 Influenza virus in respiratory specimens . The test is composed of (1) an RNA extraction from patient specimen, and (2) r RT-PCR amplification and detection with human Influenza A and novel E6S1-ljjtbxn c primers and probes. A well-conserved region of the Influenza A matrix gene is targeted in one set of reactions to identify both seasonal Influenza A and novel H1N1 Influenza virus in the specimen. In addition, a specific region of the he magglutinin gene is targeted to differentiate the novel H1N1 virus from the seas onal human influenza. An internal control is used to confirm PCR amplification. Genetic variation and other factors can affect the accuracy of nucleic acid mery ting; therefore, the results should be interpreted in light of clinical data. Th is test was developed and its performance characteristics determined by the [facility] Pathology Department, Section of Molecular Pathology. It has not been cleared or approved by the U.S. Food and Drug Administration (F DA). Since FDA approval is not required for clinical use of the test, validatio n was done as required by The Clinical Laboratory Amendments of 1988.These assay s were performed by real-time RT-PCR (fourchette sewer-PCR) utilizing fluorogenic hydrolysis probe technology for the detection of human Influenza A viruses and the differen tial detection of novel H1N1 Influenza virus in respiratory specimens. The test is composed of (1) an RNA extraction from patient specimen, and (2) fourchette sewer-PCR ampl ification and detection with human Influenza A and novel O2N4-kietvtua primers a nd probes. A well-conserved region of the Influenza A matrix gene is targeted in one set of reactions to identify both seasonal Influenza A and novel H1N1 Influ lidia virus in the specimen. In addition, a specific region of the hemagglutinin gene is targeted to differentiate the novel H1N1 virus from the seasonal human influenza. An internal control is used to confirm PCR amplification. Genetic va riation and other factors can affect the accuracy of nucleic acid testing; there fore, the results should be interpreted in light of clinical data. This test was developed and its performance characteristics determined by the [facility] Pathology Department, Section of Molecular Pathology. It has not been cleared or approved by the U.S. Food and Drug Administration (FDA). Since FDA approval is not required for clinical use of the test, validation was done as required by The Clinical Laboratory Amendments of 1988.POCT-GLUCOSE METER 2017-08-28 12:14:00* Test Item Value Reference Range Comments POC-GLUCOSE METER (BEAKER) (test odkz=1546) 155 mg/dL 70-110 TESTED AT [facility] [address] [address] URINE [id number] 10:47:00* Test Item Value Reference Range Comments CULTURE (BEAKER) (test ulxf=5678) No growth BLOOD [id number] 10:00:00* Test Item Value Reference Range Comments CULTURE (BEAKER) (test rzcp=1248) No growth in 5 days CBC W/PLT COUNT & AUTO [id number] 08:47:00* Test Item Value Reference Range Comments WHITE BLOOD CELL COUNT (BEAKER) (test pdhp=663) 8.4 K/ L 3.5-10.5 RED BLOOD CELL COUNT (BEAKER) (test hcdz=907) 3.59 M/ L 3.93-5.22 HEMOGLOBIN (BEAKER) (test rnec=783) 9.0 GM/DL 11.2-15.7 HEMATOCRIT (BEAKER) (test blzf=869) 29.0 % 34.1-44.9 MEAN CORPUSCULAR VOLUME (BEAKER) (test mcih=597) 80.8 fL 79.4-94.8 MEAN CORPUSCULAR HEMOGLOBIN (BEAKER) (test tsvd=023) 25.1 pg 25.6-32.2 MEAN CORPUSCULAR HEMOGLOBIN CONC (BEAKER) (test yfwv=822) 31.0 GM/DL 32.2-35.5 RED CELL DISTRIBUTION WIDTH (BEAKER) (test nqna=368) 19.7 % 11.7-14.4 PLATELET COUNT (BEAKER) (test ostx=499) 88 K/CU MM 150-450 MEAN PLATELET VOLUME (BEAKER) (test jois=092) 10.8 fL 9.4-12.3 NUCLEATED RED BLOOD CELLS (BEAKER) (test cjkf=362) 0 /100 WBC 0-0 NEUTROPHILS RELATIVE PERCENT (BEAKER) (test qfxs=335) 85 % LYMPHOCYTES RELATIVE PERCENT (BEAKER) (test fzdx=955) 9 % MONOCYTES RELATIVE PERCENT (BEAKER) (test nomr=049) 1 % EOSINOPHILS RELATIVE PERCENT (BEAKER) (test zcwl=867) 4 % BASOPHILS RELATIVE PERCENT (BEAKER) (test tmav=890) 0 % NEUTROPHILS ABSOLUTE COUNT (BEAKER) (test kcis=856) 7.15 K/ L 1.56-6.13 LYMPHOCYTES ABSOLUTE COUNT (BEAKER) (test pekh=698) 0.75 K/ L 1.18-3.74 MONOCYTES ABSOLUTE COUNT (BEAKER) (test iozl=580) 0.12 K/ L 0.24-0.36 EOSINOPHILS ABSOLUTE COUNT (BEAKER) (test tyfm=420) 0.32 K/ L 0.04-0.36 BASOPHILS ABSOLUTE COUNT (BEAKER) (test pxpr=316) 0.01 K/ L 0.01-0.08 IMMATURE GRANULOCYTES-RELATIVE PERCENT (BEAKER) (test zzht=3583) 1 % 0-1 BASIC METABOLIC [id number] 07:52:00* Test Item Value Reference Range Comments SODIUM (BEAKER) (test qera=453) 139 meq/L 136-145 POTASSIUM (BEAKER) (test mktn=429) 3.8 meq/L 3.5-5.1 CHLORIDE (BEAKER) (test jqey=268) 111 meq/L 98-107 CO2 (BEAKER) (test this=417) 22 meq/L 22-29 BLOOD UREA NITROGEN (BEAKER) (test mvzj=284) 7 mg/dL 7-21 CREATININE (BEAKER) (test xwjl=896) 0.47 mg/dL 0.57-1.25 GLUCOSE RANDOM (BEAKER) (test cjtn=795) 82 mg/dL 70-105 CALCIUM (BEAKER) (test hzri=667) 7.9 mg/dL 8.4-10.2 EGFR (BEAKER) (test vxxz=5610) 139 mL/min/1.73 sq m ESTIMATED GFR IS NOT ACCURATE CREATININE CLEARANCE IN PREDICTING GLOMERULAR FILTRATION RATE. ESTIMATED GFR IS NOT APPLICABLE FOR DIALYSIS PATIENTS. [id number] 07:49:00* Test Item Value Reference Range Comments PHOSPHORUS (BEAKER) (test zdht=965) 1.6 mg/dL 2.3-4.7 [id number] 07:49:00* Test Item Value Reference Range Comments MAGNESIUM (BEAKER) (test muxy=632) 1.9 mg/dL 1.6-2.6 HEPATIC FUNCTION [id number] 07:49:00* Test Item Value Reference Range Comments TOTAL PROTEIN (BEAKER) (test njfr=953) 5.5 gm/dL 6.0-8.3 ALBUMIN (BEAKER) (test rtip=8421) 2.3 g/dL 3.5-5.0 BILIRUBIN TOTAL (BEAKER) (test eabx=718) 0.5 mg/dL 0.2-1.2 BILIRUBIN DIRECT (BEAKER) (test drdu=181) 0.2 mg/dL 0.1-0.5 ALKALINE PHOSPHATASE (BEAKER) (test zicr=802) 60 U/L 40-150 AST (SGOT) (BEAKER) (test ixly=130) 13 U/L 5-34 ALT (SGPT) (BEAKER) (test fhbv=082) 10 U/L 6-55 POCT-GLUCOSE [id number] 07:32:00* Test Item Value Reference Range Comments POC-GLUCOSE METER (BEAKER) (test chsm=2013) 82 mg/dL 70-110 TESTED AT [facility] [address] [address] [address], CHEST, WITH [id number] 02:21:00FINAL REPORT CLINICAL HISTORY: CBD associated with lymphoproliferative disorder, 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 Oral contrast was given. This exam was performed according to our departmental dose- optimization program, which includes automated exposure control, adjustment [...] axis where of 11 mm. Prominent but subce ntimeter short axis diameter mediastinal nodes. Skeleton: No acute abnormality. Abdomen and pelvis: Liver: Hepatomegaly with the craniocaudal dimension of the right liver measuring 19 cm at the midclavicular line. Gallbladder and biliary t ree: Previous cholecystectomy Spleen: The spleen is at the upper limits of zina l for size, measuring 12 x 12 cm Adrenal Glands: No significant findings. Kidney s and ureters: Subcentimeter hypodensity in the superior left kidney, too small to characterize Stomach and Duodenum: No significant findings. Pancreas: No sign ificant findings. Bowel: No significant findings. Appendix: Normal. Bladder: No significant findings. Major vascular structures: Scattered atherosclerotic c alcifications Reproductive organs: No significant findings. Other: Shotty retrop eritoneal lymph nodes. Prominent but subcentimeter short axis diameter inguinal lymph nodes. No free air, fluid or adenopathy Skeleton: No acute bony abnormalit y. IMPRESSION: Subtle, nonspecific groundglass opacities in both lungs could ref lect atelectasis or pneumonitis. Prominent axillary lymph nodes, consistent with the given diagnosis of lymphoproliferative disorder. Prominent but subcentimeter short axis diameter nodes are present in the mediastinum and retroperitoneum. Hepatomegaly. Prominent spleen at the upper limits of normal for size. Signed: Samuel Fritz MDReport Verified Date/Time: 08/28/2017 02:21:40 Reading Location: [address] Reading Room , [id number] 02:21:00FINAL REPORT CLINICAL HISTORY: CBD associated with lymph oproliferative disorder, 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 Oral contrast was given. This exam was performed according to o departmental dose-optimization program, which includes automated exposure con trol, adjustment of the mA and/or kV according to patient size and/or use of the iterative reconstruction technique. Comparison: None. Chest: Lung parenchyma: N onspecific, subtle groundglass opacities scattered in both lungs. No focal conso lidation, nodule or mass. Pleural effusion: None. Pneumothorax: None. Tracheobro nchial tree: No significant findings. Pulmonary vasculature: No significant find ings. Cardiac contours and great vessels: No significant findings. Mediastinum: No significant findings. Lymph Nodes: Prominent bilateral axillary lymph nodes. Examples in the left axilla has a short axis where of 11 mm. Prominent but subce ntimeter short axis diameter mediastinal nodes. Skeleton: No acute abnormality. Abdomen and pelvis: Liver: Hepatomegaly with the craniocaudal dimension of the right liver measuring 19 cm at the midclavicular line. Gallbladder and biliary t ree: Previous cholecystectomy Spleen: The spleen is at the upper limits of zina l for size, measuring 12 x 12 cm Adrenal Glands: No significant findings. Kidney s and ureters: Subcentimeter hypodensity in the superior left kidney, too small to characterize Stomach and Duodenum: No significant findings. Pancreas: No sign ificant findings. Bowel: No significant findings. Appendix: Normal. Bladder: No significant findings. Major vascular structures: Scattered atherosclerotic c alcifications Reproductive organs: No significant findings. Other: Shotty retrop eritoneal lymph nodes. Prominent but subcentimeter short axis diameter inguinal lymph nodes. No free air, fluid or adenopathy Skeleton: No acute bony abnormalit y. IMPRESSION: Subtle, nonspecific groundglass opacities in both lungs could ref lect atelectasis or pneumonitis. Prominent axillary lymph nodes, consistent with the given diagnosis of lymphoproliferative disorder. Prominent but subcentimeter short axis diameter nodes are present in the mediastinum and retroperitoneum. Hepatomegaly. Prominent spleen at the upper limits of normal for size. Signed: Samuel Fritz MDReport Verified Date/Time: 08/28/2017 02:21:40 Reading Location: [address] Reading Room -GLUCOSE [id number] 22:03:00* Test Item Value Reference Range Comments POC-GLUCOSE METER (BEAKER) (test rftj=9315) 218 mg/dL 70-110 TESTED AT [address] [address] BLOOD [id number] 17:00:00* Test Item Value Reference Range Comments CULTURE (BEAKER) (test lqnp=7623) No growth in 5 days BLOOD [id number] 17:00:00* Test Item Value Reference Range Comments CULTURE (BEAKER) (test dbcz=6054) No growth in 5 days [id number] 13:03:00* Test Item Value Reference Range Comments FERRITIN (BEAKER) (test jjxt=187) 089[address] ng/mL 5-275 CREATINE KINASE (CK), TOTAL AND [id number] 11:39:00* Test Item Value Reference Range Comments CREATINE KINASE TOTAL (BEAKER) (test jkji=782) 14 U/L 29-200 CREATINE KINASE-MB (BEAKER) (test mpea=008) 0.3 ng/mL 0.0-6.6 CREATINE KINASE-MB INDEX (BEAKER) (test brpg=919) 2.1 % CK-MB Reference Range:<6.7 Normal6.7-10.0 Borderline>10.0 Abnormal TROPONIN [id number] 11:34:00* Test Item Value Reference Range Comments TROPONIN I (BEAKER) (test oeih=557) < ng/mL 0.00-0.03 Troponin I (TnI) levels must be interpreted in the context of the presenting sym ptoms and the clinical findings. Elevated TnI levels indicate myocardial damage, but are not specific for ischemic heart disease. Elevated TnI levels are seen in patients with other cardiac conditions (including myocarditis and congestive h eart failure), and slight TnI elevations occur in patients with other conditions , including sepsis, renal failure, acidosis, acute neurological disease, and per sistent tachyarrhythmia.[id number] 11:25:00* Test Item Value Reference Range Comments TRIGLYCERIDES (BEAKER) (test zpes=955) 326 mg/dL TRIGLYCERIDE REFERENCE RANGELow Risk <150Borderline Risk 150-199High Risk 200- 499Very High Risk >=500LACTATE DEHYDROGENASE (LDH)2017-08-27 11:25:00* Test Item Value Reference Range Comments LACTATE DEHYDROGENASE (BEAKER) (test eifa=950) 359 U/L 125-220 [id number] 11:15:00* Test Item Value Reference Range Comments D-DIMER QUANTITATIVE (BEAKER) (test pnce=000) 3.85 MG/L FEU <0.50 Intended Use: The D-Dimer Assay can be used to aid in the diagnosis of Deep Vein Thrombosis (DVT) and Pulmonary Embolism Disease (PED).In patients with low pre- test probability, various studies concerning STA Liatest D-dimer test have repor kyle that with a cutoff value of 0.50 MG/L FEU, the Negative Predictive Value (RESEARCH EDITOR V) regarding the exclusion of thrombosis is within 95-100% range.PT/APTT 2017-08-27 11:13:00* Test Item Value Reference Range Comments PROTIME (BEAKER) (test nfkp=977) 17.4 seconds 11.7-14.7 INR (BEAKER) (test xlqc=064) 1.4 <=5.9 PARTIAL THROMBOPLASTIN TIME (BEAKER) (test jdbq=691) 51.3 seconds 22.5-36.0 RECOMMENDED COUMADIN/WARFARIN INR THERAPY RANGESSTANDARD DOSE: 2.0 - 3.0 Inclu nathanael: PROPHYLAXIS for venous thrombosis, systemic embolization; TREATMENT for james ous thrombosis and/or pulmonary embolus.HIGH RISK: Target INR is 2.5-3.5 for pat ients with mechanical heart valves.[id number] 11:12:00* Test Item Value Reference Range Comments FIBRINOGEN LEVEL (BEAKER) (test blle=642) 560 mg/dl 225-434 SEDIMENTATION [id number] 09:39:00* Test Item Value Reference Range Comments SEDIMENTATION RATE, ERYTHROCYTE (BEAKER) (test mpud=013) 75 mm/HR 0-30 HEMOGLOBIN [id number] 08:35:00* Test Item Value Reference Range Comments HEMOGLOBIN A1C (BEAKER) (test qgbd=122) 5.9 % 4.3-6.1 CBC W/PLT COUNT & AUTO [id number] 07:11:00* Test Item Value Reference Range Comments WHITE BLOOD CELL COUNT (BEAKER) (test qhvg=662) 11.2 K/ L 3.5-10.5 RED BLOOD CELL COUNT (BEAKER) (test nuep=898) 4.10 M/ L 3.93-5.22 HEMOGLOBIN (BEAKER) (test kctb=180) 10.2 GM/DL 11.2-15.7 HEMATOCRIT (BEAKER) (test ysah=026) 32.6 % 34.1-44.9 MEAN CORPUSCULAR VOLUME (BEAKER) (test lzqb=775) 79.5 fL 79.4-94.8 MEAN CORPUSCULAR HEMOGLOBIN (BEAKER) (test vdmm=803) 24.9 pg 25.6-32.2 MEAN CORPUSCULAR HEMOGLOBIN CONC (BEAKER) (test wlgz=419) 31.3 GM/DL 32.2-35.5 RED CELL DISTRIBUTION WIDTH (BEAKER) (test swbd=055) 19.9 % 11.7-14.4 PLATELET COUNT (BEAKER) (test fkpa=039) 78 K/CU MM 150-450 MEAN PLATELET VOLUME (BEAKER) (test fkth=579) 10.9 fL 9.4-12.3 NUCLEATED RED BLOOD CELLS (BEAKER) (test wgdz=816) 0 /100 WBC 0-0 NEUTROPHILS RELATIVE PERCENT (BEAKER) (test aaci=120) 80 % LYMPHOCYTES RELATIVE PERCENT (BEAKER) (test xorf=815) 13 % MONOCYTES RELATIVE PERCENT (BEAKER) (test qcbg=106) 3 % EOSINOPHILS RELATIVE PERCENT (BEAKER) (test qdcy=525) 3 % BASOPHILS RELATIVE PERCENT (BEAKER) (test jwrs=985) 0 % NEUTROPHILS ABSOLUTE COUNT (BEAKER) (test fnqo=544) 9.00 K/ L 1.56-6.13 LYMPHOCYTES ABSOLUTE COUNT (BEAKER) (test tiya=312) 1.48 K/ L 1.18-3.74 MONOCYTES ABSOLUTE COUNT (BEAKER) (test rdbb=062) 0.28 K/ L 0.24-0.36 EOSINOPHILS ABSOLUTE COUNT (BEAKER) (test iwjw=703) 0.34 K/ L 0.04-0.36 BASOPHILS ABSOLUTE COUNT (BEAKER) (test rmtu=080) 0.02 K/ L 0.01-0.08 IMMATURE GRANULOCYTES-RELATIVE PERCENT (BEAKER) (test gztl=3040) 1 % 0-1 TSH/FREE T4 IF [id number] 06:45:00* Test Item Value Reference Range Comments THYROID STIMULATING HORMONE (BEAKER) (test mxud=329) 2.37 uIU/mL 0.35-4.94 CREATINE KINASE (CK), TOTAL AND [id number] 06:42:00* Test Item Value Reference Range Comments CREATINE KINASE TOTAL (BEAKER) (test rhrl=291) 18 U/L 29-200 CREATINE KINASE-MB (BEAKER) (test pxde=849) 0.4 ng/mL 0.0-6.6 CREATINE KINASE-MB INDEX (BEAKER) (test ctpo=968) 2.2 % CK-MB Reference Range:<6.7 Normal6.7-10.0 Borderline>10.0 Abnormal TROPONIN [id number] 06:36:00* Test Item Value Reference Range Comments TROPONIN I (BEAKER) (test evhv=071) < ng/mL 0.00-0.03 Troponin I (TnI) levels must be interpreted in the context of the presenting sym ptoms and the clinical findings. Elevated TnI levels indicate myocardial damage, but are not specific for ischemic heart disease. Elevated TnI levels are seen in patients with other cardiac conditions (including myocarditis and congestive h eart failure), and slight TnI elevations occur in patients with other conditions , including sepsis, renal failure, acidosis, acute neurological disease, and per sistent tachyarrhythmia.[id number] 06:30:00* Test Item Value Reference Range Comments PHOSPHORUS (BEAKER) (test tbgt=723) 2.8 mg/dL 2.3-4.7 [id number] 06:30:00* Test Item Value Reference Range Comments MAGNESIUM (BEAKER) (test yyqd=290) 1.7 mg/dL 1.6-2.6 BASIC METABOLIC [id number] 06:30:00* Test Item Value Reference Range Comments SODIUM (BEAKER) (test ewfd=290) 138 meq/L 136-145 POTASSIUM (BEAKER) (test rvfp=736) 3.3 meq/L 3.5-5.1 CHLORIDE (BEAKER) (test prum=736) 107 meq/L 98-107 CO2 (BEAKER) (test vmlo=773) 25 meq/L 22-29 BLOOD UREA NITROGEN (BEAKER) (test capf=891) 9 mg/dL 7-21 CREATININE (BEAKER) (test rzbh=098) 0.52 mg/dL 0.57-1.25 GLUCOSE RANDOM (BEAKER) (test agja=718) 111 mg/dL 70-105 CALCIUM (BEAKER) (test wccp=482) 8.0 mg/dL 8.4-10.2 EGFR (BEAKER) (test ojbw=9983) 123 mL/min/1.73 sq m ESTIMATED GFR IS NOT ACCURATE CREATININE CLEARANCE IN PREDICTING GLOMERULAR FILTRATION RATE. ESTIMATED GFR IS NOT APPLICABLE FOR DIALYSIS PATIENTS. LIPID [id number] 06:30:00* Test Item Value Reference Range Comments TRIGLYCERIDES (BEAKER) (test zlkb=146) 329 mg/dL CHOLESTEROL (BEAKER) (test eqkt=650) 145 mg/dL HDL CHOLESTEROL (BEAKER) (test gavr=500) 16 mg/dL LDL CHOLESTEROL CALCULATED (BEAKER) (test ipfx=234) 63 mg/dL Triglyceride Reference Range: Low Risk <150 Borderline 150-199 High Risk 200-499 Very High Risk >=500Cholesterol Reference Range: Low Risk <200 Borderline 200-239 High Risk >240HDL Cholesterol Reference Range: Low Risk >=60 High Risk <40LDL Cholesterol Reference Range: Optimal <100 Near Optimal 100-129 Borderline 130-159 High 160-189 Very High >=190 HEPATIC FUNCTION [id number] 06:30:00* Test Item Value Reference Range Comments TOTAL PROTEIN (BEAKER) (test njck=415) 6.0 gm/dL 6.0-8.3 ALBUMIN (BEAKER) (test dfmv=7803) 2.5 g/dL 3.5-5.0 BILIRUBIN TOTAL (BEAKER) (test ffru=842) 0.8 mg/dL 0.2-1.2 BILIRUBIN DIRECT (BEAKER) (test pvhh=821) 0.3 mg/dL 0.1-0.5 ALKALINE PHOSPHATASE (BEAKER) (test vzzg=574) 70 U/L 40-150 AST (SGOT) (BEAKER) (test zznv=518) 21 U/L 5-34 ALT (SGPT) (BEAKER) (test rfxj=979) 13 U/L 6-55 C-REACTIVE [id number] 06:30:00* Test Item Value Reference Range Comments C-REACTIVE PROTEIN (BEAKER) (test nvmp=836) 21.45 mg/dL 0.00-0.50 POCT-GLUCOSE [id number] 06:06:00* Test Item Value Reference Range Comments POC-GLUCOSE METER (BEAKER) (test vmtw=5770) 159 mg/dL 70-110 TESTED AT [facility] [address] [address] POCT-GLUCOSE [id number] 04:06:00* Test Item Value Reference Range Comments POC-GLUCOSE METER (BEAKER) (test ynvj=9045) 123 mg/dL 70-110 TESTED AT [address] [address] POCT-LACTIC ACID, [id number] 02:55:00* Test Item Value Reference Range Comments POC-LACTIC ACID, VENOUS (BEAKER) (test qnsy=3753) 0.6 mmol/L 0.9-1.7 TESTED AT [address] [address] POCT-LACTIC ACID, [id number] 00:24:00* Test Item Value Reference Range Comments POC-LACTIC ACID, VENOUS (BEAKER) (test pjsh=6733) 0.7 mmol/L 0.9-1.7 TESTED AT [address] [address] URINALYSIS W/ [id number] 00:21:00* Test Item Value Reference Range Comments COLOR (BEAKER) (test gqhv=900) Yellow CLARITY (BEAKER) (test fbyy=840) Clear SPECIFIC GRAVITY UA (BEAKER) (test uvww=502) 1.017 1.001-1.035 PH UA (BEAKER) (test txie=005) 6.5 5.0-8.0 PROTEIN UA (BEAKER) (test fkgp=868) 70 mg/dL Negative GLUCOSE UA (BEAKER) (test ozwi=696) Negative Negative KETONES UA (BEAKER) (test itrr=164) Negative Negative BILIRUBIN UA (BEAKER) (test cvpi=820) Negative Negative BLOOD UA (BEAKER) (test rpco=130) Negative Negative NITRITE UA (BEAKER) (test pvkg=392) Negative Negative LEUKOCYTE ESTERASE UA (BEAKER) (test sfgh=449) Negative Negative UROBILINOGEN UA (BEAKER) (test xges=061) 0.2 mg/dL 0.2-1.0 RBC UA (BEAKER) (test yivf=056) 1 /HPF WBC UA (BEAKER) (test wlvp=776) 2 /HPF BACTERIA (BEAKER) (test plaz=634) Rare MUCUS (BEAKER) (test nacc=4308) Few SQUAMOUS EPITHELIAL (BEAKER) (test bxov=211) < /HPF HYALINE CASTS (BEAKER) (test gvua=550) 2 /LPF GRANULAR CASTS (BEAKER) (test wvwb=999) 2 /LPF AMORPHOUS CRYSTALS (BEAKER) (test qpux=3972) Occasional SOURCE(BEAKER) (test zkvz=3182) Urine, Clean Catch RAPID INFLUENZA A&B [id number] 22:43:00* Test Item Value Reference Range Comments RAPID INFLUENZA A AG (BEAKER) (test tiaz=2648) Negative Negative, Inconclusive RAPID INFLUENZA B AG (BEAKER) (test evcl=5888) Negative Negative, Inconclusive [id number] 22:12:00* Test Item Value Reference Range Comments MAGNESIUM (BEAKER) (test zxym=619) 1.7 mg/dL 1.6-2.6 Specimen slightly hemolyzed COMPREHENSIVE METABOLIC [id number] 22:08:00* Test Item Value Reference Range Comments TOTAL PROTEIN (BEAKER) (test nyrk=903) 6.8 gm/dL 6.0-8.3 Specimen slightly hemolyzed ALBUMIN (BEAKER) (test evwj=8746) 2.8 g/dL 3.5-5.0 Specimen slightly hemolyzed ALKALINE PHOSPHATASE (BEAKER) (test eimw=718) 76 U/L 40-150 BILIRUBIN TOTAL (BEAKER) (test fysu=095) 0.9 mg/dL 0.2-1.2 Specimen slightly hemolyzed SODIUM (BEAKER) (test jaxz=044) 131 meq/L 136-145 POTASSIUM (BEAKER) (test bolh=266) 3.7 meq/L 3.5-5.1 Specimen slightly hemolyzed CHLORIDE (BEAKER) (test iwxh=075) 102 meq/L 98-107 CO2 (BEAKER) (test wvlo=896) 19 meq/L 22-29 BLOOD UREA NITROGEN (BEAKER) (test tlwt=447) 9 mg/dL 7-21 CREATININE (BEAKER) (test axnp=959) 0.62 mg/dL 0.57-1.25 Specimen slightly hemolyzed GLUCOSE RANDOM (BEAKER) (test vwxc=521) 137 mg/dL 70-105 CALCIUM (BEAKER) (test odgh=272) 7.9 mg/dL 8.4-10.2 AST (SGOT) (BEAKER) (test xzzn=923) 27 U/L 5-34 Specimen slightly hemolyzed ALT (SGPT) (BEAKER) (test ruzf=710) 17 U/L 6-55 Specimen slightly hemolyzed EGFR (BEAKER) (test slvs=9764) 101 mL/min/1.73 sq m ESTIMATED GFR IS NOT ACCURATE CREATININE CLEARANCE IN PREDICTING GLOMERULAR FILTRATION RATE. ESTIMATED GFR IS NOT APPLICABLE FOR DIALYSIS PATIENTS. RAD, CHEST, 1 VIEW, NON [id number] 22:02:00Reason for exam:->FEVERShould this be performed at the bedside?->YesFINAL REPORT RAD, CHEST, 1 VIEW, NON DEPT INDICATION: FEVER COMPARISON: Chest x-ray 08/22/2017 TECHNIQUE: Single frontal view of the chest. IMPRESSION:Cardiomediastinal silhouette within normal limits.No overt consolidative or congestive change.No acute osseous abnormality. Signed: Roseann Coto MDReport Verified Date/Time: 08/26/2017 22:02:21 Reading Location: [address] Ortho Consult Reading Room W/PLT COUNT & AUTO [id number] 21:55:00* Test Item Value Reference Range Comments WHITE BLOOD CELL COUNT (BEAKER) (test pwtw=295) 12.1 K/ L 3.5-10.5 RED BLOOD CELL COUNT (BEAKER) (test qduj=634) 4.55 M/ L 3.93-5.22 HEMOGLOBIN (BEAKER) (test ovsd=400) 11.2 GM/DL 11.2-15.7 HEMATOCRIT (BEAKER) (test wpih=625) 35.9 % 34.1-44.9 MEAN CORPUSCULAR VOLUME (BEAKER) (test zule=735) 78.9 fL 79.4-94.8 MEAN CORPUSCULAR HEMOGLOBIN (BEAKER) (test icxl=161) 24.6 pg 25.6-32.2 MEAN CORPUSCULAR HEMOGLOBIN CONC (BEAKER) (test bdel=220) 31.2 GM/DL 32.2-35.5 RED CELL DISTRIBUTION WIDTH (BEAKER) (test ztch=800) 20.1 % 11.7-14.4 PLATELET COUNT (BEAKER) (test heey=792) 85 K/CU MM 150-450 MEAN PLATELET VOLUME (BEAKER) (test whpz=037) 10.2 fL 9.4-12.3 NUCLEATED RED BLOOD CELLS (BEAKER) (test jomd=830) 0 /100 WBC 0-0 NEUTROPHILS RELATIVE PERCENT (BEAKER) (test bwyx=565) 77 % LYMPHOCYTES RELATIVE PERCENT (BEAKER) (test lqpz=727) 16 % MONOCYTES RELATIVE PERCENT (BEAKER) (test oxvn=055) 3 % EOSINOPHILS RELATIVE PERCENT (BEAKER) (test mmiw=473) 2 % BASOPHILS RELATIVE PERCENT (BEAKER) (test satn=053) 0 % NEUTROPHILS ABSOLUTE COUNT (BEAKER) (test xtra=115) 9.36 K/ L 1.56-6.13 LYMPHOCYTES ABSOLUTE COUNT (BEAKER) (test epes=692) 1.95 K/ L 1.18-3.74 MONOCYTES ABSOLUTE COUNT (BEAKER) (test ajel=471) 0.39 K/ L 0.24-0.36 EOSINOPHILS ABSOLUTE COUNT (BEAKER) (test lgwa=410) 0.23 K/ L 0.04-0.36 BASOPHILS ABSOLUTE COUNT (BEAKER) (test nmqk=396) 0.02 K/ L 0.01-0.08 IMMATURE GRANULOCYTES-RELATIVE PERCENT (BEAKER) (test bmbo=9569) 1 % 0-1 POCT-LACTIC ACID, [id number] 21:44:00* Test Item Value Reference Range Comments POC-LACTIC ACID, VENOUS (BEAKER) (test tmur=3955) 0.8 mmol/L 0.9-1.7 TESTED AT [place] [id number] POCT-GLUCOSE [id number] 13:27:00* Test Item Value Reference Range Comments POC-GLUCOSE METER (BEAKER) (test plxu=3523) 128 mg/dL 70-110 TESTED AT [place] [id number] POCT-GLUCOSE [id number] 12:23:00* Test Item Value Reference Range Comments POC-GLUCOSE METER (BEAKER) (test wndc=8492) 163 mg/dL 70-110 TESTED AT [place] [id number] CBC W/PLT COUNT & AUTO [id number] 11:33:00* Test Item Value Reference Range Comments WHITE BLOOD CELL COUNT (BEAKER) (test kvnq=903) 6.7 K/ L 3.5-10.5 RED BLOOD CELL COUNT (BEAKER) (test gffz=073) 3.79 M/ L 3.93-5.22 HEMOGLOBIN (BEAKER) (test avwl=774) 9.4 GM/DL 11.2-15.7 HEMATOCRIT (BEAKER) (test rons=162) 31.2 % 34.1-44.9 MEAN CORPUSCULAR VOLUME (BEAKER) (test icrs=931) 82.3 fL 79.4-94.8 MEAN CORPUSCULAR HEMOGLOBIN (BEAKER) (test dmnf=245) 24.8 pg 25.6-32.2 MEAN CORPUSCULAR HEMOGLOBIN CONC (BEAKER) (test mmwt=828) 30.1 GM/DL 32.2-35.5 RED CELL DISTRIBUTION WIDTH (BEAKER) (test wtzt=667) 19.6 % 11.7-14.4 PLATELET COUNT (BEAKER) (test ajtc=044) 66 K/CU MM 150-450 MEAN PLATELET VOLUME (BEAKER) (test tirz=083) 10.2 fL 9.4-12.3 NUCLEATED RED BLOOD CELLS (BEAKER) (test ltxr=812) 0 /100 WBC 0-0 IMMATURE GRANULOCYTES-RELATIVE PERCENT (BEAKER) (test hkqg=5304) 1 % 0-1 (MANUAL DIFFERENTIAL)2017-08-25 11:33:00* Test Item Value Reference Range Comments NEUTROPHILS - REL (DIFF) (BEAKER) (test rmhg=1505) 63 % LYMPHOCYTES - REL (DIFF) (BEAKER) (test utou=8524) 22 % MONOCYTES - REL (DIFF) (BEAKER) (test ucxh=3557) 7 % EOSINOPHILS - REL (DIFF) (BEAKER) (test ofzf=5471) 3 % BASOPHILS - REL (DIFF) (BEAKER) (test jqxe=5654) 0 % BLASTS - REL (DIFF) (BEAKER) (test lfho=1231) 5 % 0-0 NEUTROPHILS - ABS (DIFF) (BEAKER) (test bnfx=0582) 4.22 K/ L 1.80-8.00 LYMPHOCYTES - ABS (DIFF) (BEAKER) (test swrc=9355) 1.47 K/ L 1.48-4.50 MONOCYTES - ABS (DIFF) (BEAKER) (test kwvy=4381) 0.47 K/ L 0.00-1.30 EOSINOPHILS - ABS (DIFF) (BEAKER) (test drxt=0922) 0.20 K/ L 0.00-0.50 BASOPHILS - ABS (DIFF) (BEAKER) (test eijv=1823) 0.00 K/ L 0.00-0.20 BLASTS - ABS (DIFF) (BEAKER) (test ckyv=1756) 0.34 K/ L 0.00-0.00 TOTAL COUNTED (BEAKER) (test dqni=1164) 100 WBC MORPHOLOGY (BEAKER) (test rdio=616) Normal PLT MORPHOLOGY (BEAKER) (test qysb=181) Normal ANISOCYTOSIS (BEAKER) (test uvoi=362) 1+ few SPHEROCYTES (BEAKER) (test ufwd=494) 1+ few [id number] 08:46:00* Test Item Value Reference Range Comments FERRITIN (BEAKER) (test wieh=697) 9348 ng/mL 5-275 [id number] 06:20:00* Test Item Value Reference Range Comments PHOSPHORUS (BEAKER) (test quig=680) 2.6 mg/dL 2.3-4.7 [id number] 06:20:00* Test Item Value Reference Range Comments MAGNESIUM (BEAKER) (test misr=662) 1.6 mg/dL 1.6-2.6 BASIC METABOLIC [id number] 06:20:00* Test Item Value Reference Range Comments SODIUM (BEAKER) (test xoem=685) 139 meq/L 136-145 POTASSIUM (BEAKER) (test qqbc=632) 3.5 meq/L 3.5-5.1 CHLORIDE (BEAKER) (test cxsa=504) 112 meq/L 98-107 CO2 (BEAKER) (test vfhx=493) 22 meq/L 22-29 BLOOD UREA NITROGEN (BEAKER) (test nuob=597) 17 mg/dL 7-21 CREATININE (BEAKER) (test aodk=790) 0.59 mg/dL 0.57-1.25 GLUCOSE RANDOM (BEAKER) (test xsbe=071) 121 mg/dL 70-105 CALCIUM (BEAKER) (test ufxc=344) 8.2 mg/dL 8.4-10.2 EGFR (BEAKER) (test niok=9481) 107 mL/min/1.73 sq m ESTIMATED GFR IS NOT ACCURATE CREATININE CLEARANCE IN PREDICTING GLOMERULAR FILTRATION RATE. ESTIMATED GFR IS NOT APPLICABLE FOR DIALYSIS PATIENTS. POCT-GLUCOSE [id number] 05:56:00* Test Item Value Reference Range Comments POC-GLUCOSE METER (BEAKER) (test vssi=9869) 118 mg/dL 70-110 TESTED AT [place] [address] POCT-GLUCOSE [id number] 01:21:00* Test Item Value Reference Range Comments POC-GLUCOSE METER (BEAKER) (test atox=7659) 196 mg/dL 70-110 TESTED AT [place] [address] POCT-GLUCOSE [id number] 18:47:00* Test Item Value Reference Range Comments POC-GLUCOSE METER (BEAKER) (test ttxj=7556) 136 mg/dL 70-110 TESTED AT [address] [address] [id number] 15:29:00* Test Item Value Reference Range Comments FERRITIN (BEAKER) (test mrmt=344) [address] ng/mL 5-275 POCT-GLUCOSE [id number] 14:42:00* Test Item Value Reference Range Comments POC-GLUCOSE METER (BEAKER) (test cujt=5799) 268 mg/dL 70-110 TESTED AT [place] [address] URINE [id number] 10:53:00* Test Item Value Reference Range Comments CULTURE (BEAKER) (test ovgq=9881) No growth URINE [id number] 10:45:00* Test Item Value Reference Range Comments CULTURE (BEAKER) (test bxif=8682) No growth POCT-GLUCOSE [id number] 10:01:00* Test Item Value Reference Range Comments POC-GLUCOSE METER (BEAKER) (test qahi=4069) 125 mg/dL 70-110 TESTED AT [address] [address] VANCOMYCIN LEVEL, [id number] 08:40:00* Test Item Value Reference Range Comments VANCOMYCIN TROUGH (BEAKER) (test ualn=386) 6.2 ug/mL 10.0-20.0 Please draw trough 30 minutes prior to AM vancomycin dose on 08/24.PROTHROMBIN TIME/[id number] 08:30:00* Test Item Value Reference Range Comments PROTIME (BEAKER) (test ofxa=594) 14.5 seconds 11.7-14.7 INR (BEAKER) (test slcp=326) 1.1 <=5.9 RECOMMENDED COUMADIN/WARFARIN INR THERAPY RANGESSTANDARD DOSE: 2.0 - 3.0 Inclu nathanael: PROPHYLAXIS for venous thrombosis, systemic embolization; TREATMENT for james ous thrombosis and/or pulmonary embolus.HIGH RISK: Target INR is 2.5-3.5 for pat ients with mechanical heart valves.[id number] 08:30:00* Test Item Value Reference Range Comments FIBRINOGEN LEVEL (BEAKER) (test ligy=054) 441 mg/dl 225-434 PT/[id number] 08:30:00* Test Item Value Reference Range Comments PROTIME (BEAKER) (test pigo=529) 14.5 seconds 11.7-14.7 INR (BEAKER) (test bakw=397) 1.1 <=5.9 PARTIAL THROMBOPLASTIN TIME (BEAKER) (test mdlg=166) 29.9 seconds 22.5-36.0 RECOMMENDED COUMADIN/WARFARIN INR THERAPY RANGESSTANDARD DOSE: 2.0 - 3.0 Inclu nathanael: PROPHYLAXIS for venous thrombosis, systemic embolization; TREATMENT for james ous thrombosis and/or pulmonary embolus.HIGH RISK: Target INR is 2.5-3.5 for pat ients with mechanical heart valves.CBC W/PLT COUNT & AUTO [id number] 07:05:00* Test Item Value Reference Range Comments WHITE BLOOD CELL COUNT (BEAKER) (test koiv=977) 10.7 K/ L 3.5-10.5 RED BLOOD CELL COUNT (BEAKER) (test jxdy=085) 4.34 M/ L 3.93-5.22 HEMOGLOBIN (BEAKER) (test lhko=948) 10.9 GM/DL 11.2-15.7 HEMATOCRIT (BEAKER) (test kxqo=973) 34.6 % 34.1-44.9 MEAN CORPUSCULAR VOLUME (BEAKER) (test zyvq=878) 79.7 fL 79.4-94.8 MEAN CORPUSCULAR HEMOGLOBIN (BEAKER) (test cnmx=189) 25.1 pg 25.6-32.2 MEAN CORPUSCULAR HEMOGLOBIN CONC (BEAKER) (test tneh=572) 31.5 GM/DL 32.2-35.5 RED CELL DISTRIBUTION WIDTH (BEAKER) (test sewf=666) 19.6 % 11.7-14.4 PLATELET COUNT (BEAKER) (test lgfn=296) 77 K/CU MM 150-450 MEAN PLATELET VOLUME (BEAKER) (test wedf=562) 9.5 fL 9.4-12.3 NUCLEATED RED BLOOD CELLS (BEAKER) (test mrkh=650) 0 /100 WBC 0-0 IMMATURE GRANULOCYTES-RELATIVE PERCENT (BEAKER) (test jyfq=2223) 1 % 0-1 (MANUAL DIFFERENTIAL)2017-08-24 07:05:00* Test Item Value Reference Range Comments NEUTROPHILS - REL (DIFF) (BEAKER) (test lnsj=5093) 66 % LYMPHOCYTES - REL (DIFF) (BEAKER) (test qxtu=2348) 4 % MONOCYTES - REL (DIFF) (BEAKER) (test jqhd=9386) 5 % EOSINOPHILS - REL (DIFF) (BEAKER) (test lzrx=5917) 0 % BASOPHILS - REL (DIFF) (BEAKER) (test qyxx=0897) 0 % BANDS - REL (DIFF) (BEAKER) (test hgrr=8216) 25 % 0-10 NEUTROPHILS - ABS (DIFF) (BEAKER) (test beje=0203) 7.06 K/ L 1.80-8.00 LYMPHOCYTES - ABS (DIFF) (BEAKER) (test cvjg=7331) 0.43 K/ L 1.48-4.50 MONOCYTES - ABS (DIFF) (BEAKER) (test cgwu=6495) 0.54 K/ L 0.00-1.30 EOSINOPHILS - ABS (DIFF) (BEAKER) (test boee=1272) 0.00 K/ L 0.00-0.50 BASOPHILS - ABS (DIFF) (BEAKER) (test mrmy=5092) 0.00 K/ L 0.00-0.20 BANDS-ABS (DIFF) (BEAKER) (test dszx=9029) 2.7 K/ L 0.0-0.8 TOTAL COUNTED (BEAKER) (test wgey=5663) 100 BANDS + SEGMENTED NEUTROPHILS (BEAKER) (test eyor=2038) 9.74 PLT MORPHOLOGY (BEAKER) (test tgzr=838) Normal VACUOLATED NEUTROPHILS (BEAKER) (test naiy=166) Present ANISOCYTOSIS (BEAKER) (test yidc=843) 1+ few SPHEROCYTES (BEAKER) (test gjru=318) 1+ few POCT-GLUCOSE [id number] 06:20:00* Test Item Value Reference Range Comments POC-GLUCOSE METER (BEAKER) (test hzzx=9022) 155 mg/dL 70-110 TESTED AT [facility] [address] [address] [id number] 04:14:00* Test Item Value Reference Range Comments PHOSPHORUS (BEAKER) (test vodq=285) 2.5 mg/dL 2.3-4.7 [id number] 04:14:00* Test Item Value Reference Range Comments MAGNESIUM (BEAKER) (test jkhh=775) 2.1 mg/dL 1.6-2.6 BASIC METABOLIC [id number] 04:14:00* Test Item Value Reference Range Comments SODIUM (BEAKER) (test uymf=090) 138 meq/L 136-145 POTASSIUM (BEAKER) (test ryzu=120) 3.7 meq/L 3.5-5.1 CHLORIDE (BEAKER) (test ztim=192) 109 meq/L 98-107 CO2 (BEAKER) (test rvzn=721) 22 meq/L 22-29 BLOOD UREA NITROGEN (BEAKER) (test bnrm=476) 16 mg/dL 7-21 CREATININE (BEAKER) (test krnv=051) 0.55 mg/dL 0.57-1.25 GLUCOSE RANDOM (BEAKER) (test hbet=466) 178 mg/dL 70-105 CALCIUM (BEAKER) (test oiud=652) 8.3 mg/dL 8.4-10.2 EGFR (BEAKER) (test svog=1727) 116 mL/min/1.73 sq m ESTIMATED GFR IS NOT ACCURATE CREATININE CLEARANCE IN PREDICTING GLOMERULAR FILTRATION RATE. ESTIMATED GFR IS NOT APPLICABLE FOR DIALYSIS PATIENTS. LACTIC ACID, VENOUS, WHOLE [id number] 04:05:00* Test Item Value Reference Range Comments LACTATE BLOOD VENOUS (2) (BEAKER) (test wzfe=0140) 1.1 mmol/L 0.5-2.2 Effective 12/30/2015: Units/Reference Range ChangeNew: 0.5-2.2 mmol/L Previous: 5 -20 mg/dLPOCT-GLUCOSE [id number] 23:51:00* Test Item Value Reference Range Comments POC-GLUCOSE METER (BEAKER) (test rwtv=2977) 244 mg/dL 70-110 TESTED AT [facility] [address] [address] POCT-GLUCOSE [id number] 17:45:00* Test Item Value Reference Range Comments POC-GLUCOSE METER (BEAKER) (test knil=2699) 207 mg/dL 70-110 TESTED AT [facility] [address] [address] [id number] 16:53:00* Test Item Value Reference Range Comments FERRITIN (BEAKER) (test nrhi=004) 50151 ng/mL 5-275 INFLUENZA A H1N1 [id number] 16:28:00* Test Item Value Reference Range Comments INFLUENZA A RNA (BEAKER) (test faqi=2098) Not Detected Not Detected, Inconclusive NOVEL H1N1 RNA (BEAKER) (test qcqn=4699) Not Detected Not Detected, Inconclusive These assays were performed by real-time RT-PCR (fourchette sewer-PCR) utilizing fluorogenic hydrolysis probe technology for the detection of human Influenza A viruses and t he differential detection of novel H1N1 Influenza virus in respiratory specimens . The test is composed of (1) an RNA extraction from patient specimen, and (2) r RT-PCR amplification and detection with human Influenza A and novel V1N0-airpman c primers and probes. A well-conserved region of the Influenza A matrix gene is targeted in one set of reactions to identify both seasonal Influenza A and novel H1N1 Influenza virus in the specimen. In addition, a specific region of the he magglutinin gene is targeted to differentiate the novel H1N1 virus from the seas onal human influenza. An internal control is used to confirm PCR amplification. Genetic variation and other factors can affect the accuracy of nucleic acid mery ting; therefore, the results should be interpreted in light of clinical data. Th is test was developed and its performance characteristics determined by the [facility] Pathology Department, Section of Molecular Pathology. It has not been cleared or approved by the U.S. Food and Drug Administration (F DA). Since FDA approval is not required for clinical use of the test, validatio n was done as required by The Clinical Laboratory Amendments of 1988.These assay s were performed by real-time RT-PCR (fourchette sewer-PCR) utilizing fluorogenic hydrolysis probe technology for the detection of human Influenza A viruses and the differen tial detection of novel H1N1 Influenza virus in respiratory specimens. The test is composed of (1) an RNA extraction from patient specimen, and (2) fourchette sewer-PCR ampl ification and detection with human Influenza A and novel Q4I8-emtvcsxv primers a nd probes. A well-conserved region of the Influenza A matrix gene is targeted in one set of reactions to identify both seasonal Influenza A and novel H1N1 Influ lidia virus in the specimen. In addition, a specific region of the hemagglutinin gene is targeted to differentiate the novel H1N1 virus from the seasonal human influenza. An internal control is used to confirm PCR amplification. Genetic va riation and other factors can affect the accuracy of nucleic acid testing; there fore, the results should be interpreted in light of clinical data. This test was developed and its performance characteristics determined by the [facility] Pathology Department, Section of Molecular Pathology. It has not been cleared or approved by the U.S. Food and Drug Administration (FDA). Since FDA approval is not required for clinical use of the test, validation was done as required by The Clinical Laboratory Amendments of 1988.PROCALCITONIN 2017-08-23 15:28:00* Test Item Value Reference Range Comments PROCALCITONIN (BEAKER) (test edtv=1594) 6.08 ng/mL <0.05 SEPSIS RISK (ng/mL)Low: 0.05-0.50Intermediate: 0.51-2.00High: > =2.01IRON, TIBC, % SAT. (WITHOUT FERRITIN)2017-08-23 14:19:00* Test Item Value Reference Range Comments IRON (BEAKER) (test psju=716) 39 ug/dL 40-160 TOTAL IRON BINDING CAPACITY (BEAKER) (test mhgj=040) 133 ug/dL 250-450 IRON % SATURATION (2) (BEAKER) (test gnjz=2789) 29 % 20-55 HEPATIC FUNCTION [id number] 14:18:00* Test Item Value Reference Range Comments TOTAL PROTEIN (BEAKER) (test dobv=549) 6.1 gm/dL 6.0-8.3 ALBUMIN (BEAKER) (test ovld=3811) 2.7 g/dL 3.5-5.0 BILIRUBIN TOTAL (BEAKER) (test jibn=126) 1.0 mg/dL 0.2-1.2 BILIRUBIN DIRECT (BEAKER) (test haqh=855) 0.3 mg/dL 0.1-0.5 ALKALINE PHOSPHATASE (BEAKER) (test epwb=123) 90 U/L 40-150 AST (SGOT) (BEAKER) (test ydpg=729) 50 U/L 5-34 ALT (SGPT) (BEAKER) (test cjwd=681) 19 U/L 6-55 [id number] 14:17:00* Test Item Value Reference Range Comments TRIGLYCERIDES (BEAKER) (test oxur=731) 299 mg/dL TRIGLYCERIDE REFERENCE RANGELow Risk <150Borderline Risk 150-199High Risk 200- 499Very High Risk >=500LACTATE DEHYDROGENASE (LDH)2017-08-23 14:17:00* Test Item Value Reference Range Comments LACTATE DEHYDROGENASE (BEAKER) (test tfjh=071) 737 U/L 125-220 [id number] 14:04:00* Test Item Value Reference Range Comments PARTIAL THROMBOPLASTIN TIME (BEAKER) (test sdpv=811) 36.5 seconds 22.5-36.0 PROTHROMBIN [id number] 14:03:00* Test Item Value Reference Range Comments PROTIME (BEAKER) (test jrol=013) 18.5 seconds 11.7-14.7 INR (BEAKER) (test ptya=119) 1.5 <=5.9 RECOMMENDED COUMADIN/WARFARIN INR THERAPY RANGESSTANDARD DOSE: 2.0 - 3.0 Inclu nathanael: PROPHYLAXIS for venous thrombosis, systemic embolization; TREATMENT for james ous thrombosis and/or pulmonary embolus.HIGH RISK: Target INR is 2.5-3.5 for pat ients with mechanical heart valves.POCT-GLUCOSE [id number] 12:41:00* Test Item Value Reference Range Comments POC-GLUCOSE METER (GRACIELA) (test gcmy=0707) 120 mg/dL 70-110 TESTED AT [facility] [address] [address] CBC W/PLT COUNT & AUTO [id number] 10:24:00* Test Item Value Reference Range Comments WHITE BLOOD CELL COUNT (BEAKER) (test yber=318) 23.6 K/ L 3.5-10.5 RED BLOOD CELL COUNT (BEAKER) (test ldnn=791) 4.69 M/ L 3.93-5.22 HEMOGLOBIN (BEAKER) (test sffc=848) 11.7 GM/DL 11.2-15.7 HEMATOCRIT (BEAKER) (test zxbr=415) 37.0 % 34.1-44.9 MEAN CORPUSCULAR VOLUME (BEAKER) (test kxin=233) 78.9 fL 79.4-94.8 MEAN CORPUSCULAR HEMOGLOBIN (BEAKER) (test zccf=488) 24.9 pg 25.6-32.2 MEAN CORPUSCULAR HEMOGLOBIN CONC (BEAKER) (test vxpw=553) 31.6 GM/DL 32.2-35.5 RED CELL DISTRIBUTION WIDTH (BEAKER) (test cdjn=052) 20.4 % 11.7-14.4 PLATELET COUNT (BEAKER) (test kzpp=349) 114 K/CU MM 150-450 MEAN PLATELET VOLUME (BEAKER) (test lhby=430) 9.1 fL 9.4-12.3 NUCLEATED RED BLOOD CELLS (BEAKER) (test cxen=984) 0 /100 WBC 0-0 IMMATURE GRANULOCYTES-RELATIVE PERCENT (BEAKER) (test lwrw=7974) 2 % 0-1 (MANUAL DIFFERENTIAL)2017-08-23 10:24:00* Test Item Value Reference Range Comments NEUTROPHILS - REL (DIFF) (BEAKER) (test tmjd=5915) 68 % LYMPHOCYTES - REL (DIFF) (BEAKER) (test rckw=1761) 3 % MONOCYTES - REL (DIFF) (BEAKER) (test vlsk=8690) 5 % EOSINOPHILS - REL (DIFF) (BEAKER) (test etho=4443) 3 % BASOPHILS - REL (DIFF) (BEAKER) (test ivwz=3414) 3 % METAMYELOCYTES-REL (DIFF) (BEAKER) (test aoss=358) 1 % 0-0 BANDS - REL (DIFF) (BEAKER) (test tmgd=0737) 17 % 0-10 NEUTROPHILS - ABS (DIFF) (BEAKER) (test yvsz=4659) 16.05 K/ L 1.80-8.00 LYMPHOCYTES - ABS (DIFF) (BEAKER) (test cmmx=8646) 0.71 K/ L 1.48-4.50 MONOCYTES - ABS (DIFF) (BEAKER) (test gitg=3009) 1.18 K/ L 0.00-1.30 EOSINOPHILS - ABS (DIFF) (BEAKER) (test zkqg=4692) 0.71 K/ L 0.00-0.50 BASOPHILS - ABS (DIFF) (BEAKER) (test fhgy=2018) 0.71 K/ L 0.00-0.20 METAMYELOCTYES - ABS (DIFF) (BEAKER) (test rthf=509) 0.24 K/ L 0.00-0.00 BANDS-ABS (DIFF) (BEAKER) (test nldu=3766) 4.0 K/ L 0.0-0.8 TOTAL COUNTED (BEAKER) (test dfma=1884) 100 BANDS + SEGMENTED NEUTROPHILS (BEAKER) (test kabp=1433) 20.06 WBC MORPHOLOGY (BEAKER) (test sstm=686) Normal PLT MORPHOLOGY (BEAKER) (test vsqv=636) Normal ANISOCYTOSIS (BEAKER) (test okcp=376) 1+ few POLYCHROMATOPHILLIC RBCS(BEAKER) (test gzcd=003) 1+ few [id number] 10:01:00* Test Item Value Reference Range Comments MAGNESIUM (BEAKER) (test mnoa=903) 2.5 mg/dL 1.6-2.6 POCT-GLUCOSE [id number] 06:30:00* Test Item Value Reference Range Comments POC-GLUCOSE METER (BEAKER) (test rlqr=2096) 175 mg/dL 70-110 TESTED AT [facility] [address] [address] BASIC METABOLIC [id number] 04:17:00* Test Item Value Reference Range Comments SODIUM (BEAKER) (test oqcb=682) 138 meq/L 136-145 POTASSIUM (BEAKER) (test mqys=383) 3.4 meq/L 3.5-5.1 CHLORIDE (BEAKER) (test pufn=443) 107 meq/L 98-107 CO2 (BEAKER) (test mrfw=858) 22 meq/L 22-29 BLOOD UREA NITROGEN (BEAKER) (test fkow=060) 12 mg/dL 7-21 CREATININE (BEAKER) (test yguj=329) 0.64 mg/dL 0.57-1.25 GLUCOSE RANDOM (BEAKER) (test aftj=317) 192 mg/dL 70-105 CALCIUM (BEAKER) (test qysd=959) 8.1 mg/dL 8.4-10.2 EGFR (BEAKER) (test arve=4120) 97 mL/min/1.73 sq m ESTIMATED GFR IS NOT ACCURATE CREATININE CLEARANCE IN PREDICTING GLOMERULAR FILTRATION RATE. ESTIMATED GFR IS NOT APPLICABLE FOR DIALYSIS PATIENTS. LACTIC ACID, VENOUS, WHOLE [id number] 04:08:00* Test Item Value Reference Range Comments LACTATE BLOOD VENOUS (2) (BEAKER) (test thqb=4323) 1.4 mmol/L 0.5-2.2 Effective 12/30/2015: Units/Reference Range ChangeNew: 0.5-2.2 mmol/L Previous: 5 -20 mg/dLPOCT-GLUCOSE [id number] 00:25:00* Test Item Value Reference Range Comments POC-GLUCOSE METER (BEAKER) (test eqkl=5273) 151 mg/dL 70-110 TESTED AT [facility] [address] [address] LACTIC ACID, ARTERIAL, WHOLE [id number] 23:09:00* Test Item Value Reference Range Comments LACTATE BLOOD ARTERIAL (2) (BEAKER) (test bqnc=1023) 1.0 mmol/L 0.5-2.2 Effective 12/30/2015: Units/Reference Range ChangeNew: 0.5-2.2 mmol/L Previous: 5 -20 mg/dLRAD, CHEST, 1 VIEW, NON [id number] 23:08:00Reason for exam:->Line placement Should this be performed at the bedside?->YesFINAL REPORT History: Line placement COMPARISON: 08/22/2017 performed earlier DISCUSSION: A single frontal view of the chest was submitted for interpretation. The cardiac silhouette size is enlarged. There is mild pulmonary venous congestion. No pneumothorax, pleural effusion or focal infiltrate is seen. There has been interval placement of a left-sided internal jugular venous catheter with the tip projecting either over the distal brachiocephalic vein or superior vena cava. Signed: Kamini Hooper MDReport Verified Date/Time: 08/22/2017 23:08:03 Reading Location: [facility] B1 C013W Consult Reading Room Electron ically signed by: KAMINI HOOPER M.D. on 08/22/2017 11:08 PM LACTIC ACID, VENOUS, WHOLE [id number] 20:58:00* Test Item Value Reference Range Comments LACTATE BLOOD VENOUS (2) (BEAKER) (test xhkj=8103) 2.4 mmol/L 0.5-2.2 Specimen slightly hemolyzed Effective 12/30/2015: Units/Reference Range ChangeNew: 0.5-2.2 mmol/L Previous: 5 -20 mg/dLU/S, ABDOMINAL, [id number] 20:48:00Reason for exam:->Evaluation for source of sepsis/ Immunosuppressed patientFINAL REPORT HISTORY : Evaluation for source of [...] aorta are within normal limits. The maximum d iameter of the abdominal aorta is 1.7 cm. IMPRESSION : 1. Tiny left renal cyst. 2. Splenomegaly. 3. Mildly increased echogenicity of the kidneys, possibly due to underlying medical renal disease. 4. Gallbladder not visualized. Signed: Kamini Thornton MDReport Verified Date/Time: 08/22/2017 20:48:43 Reading Location: [place] [address] C013W Consult Reading Room IC ACID, VENOUS, WHOLE [id number] 19:32:00* Test Item Value Reference Range Comments LACTATE BLOOD VENOUS (2) (BEAKER) (test cfut=0971) 2.7 mmol/L 0.5-2.2 Specimen moderately hemolyzed Effective 12/30/2015: Units/Reference Range ChangeNew: 0.5-2.2 mmol/L Previous: 5 -20 mg/dLCBC W/PLT COUNT & AUTO [id number] 18:30:00* Test Item Value Reference Range Comments WHITE BLOOD CELL COUNT (BEAKER) (test aovd=845) 5.9 K/ L 3.5-10.5 RED BLOOD CELL COUNT (BEAKER) (test phvr=657) 3.07 M/ L 3.93-5.22 HEMOGLOBIN (BEAKER) (test yvtu=760) 7.8 GM/DL 11.2-15.7 HEMATOCRIT (BEAKER) (test rcdu=328) 25.9 % 34.1-44.9 MEAN CORPUSCULAR VOLUME (BEAKER) (test qzll=423) 84.4 fL 79.4-94.8 MEAN CORPUSCULAR HEMOGLOBIN (BEAKER) (test gktj=551) 25.4 pg 25.6-32.2 MEAN CORPUSCULAR HEMOGLOBIN CONC (BEAKER) (test heqr=747) 30.1 GM/DL 32.2-35.5 RED CELL DISTRIBUTION WIDTH (BEAKER) (test ajas=336) 20.6 % 11.7-14.4 PLATELET COUNT (BEAKER) (test ztsu=512) 64 K/CU MM 150-450 MEAN PLATELET VOLUME (BEAKER) (test rxcc=083) 8.9 fL 9.4-12.3 NUCLEATED RED BLOOD CELLS (BEAKER) (test wfda=632) 0 /100 WBC 0-0 NEUTROPHILS RELATIVE PERCENT (BEAKER) (test ktnp=761) 75 % LYMPHOCYTES RELATIVE PERCENT (BEAKER) (test bfjf=520) 16 % MONOCYTES RELATIVE PERCENT (BEAKER) (test hxpy=581) 4 % EOSINOPHILS RELATIVE PERCENT (BEAKER) (test uyht=184) 3 % BASOPHILS RELATIVE PERCENT (BEAKER) (test icrg=047) 0 % NEUTROPHILS ABSOLUTE COUNT (BEAKER) (test lsoq=266) 4.42 K/ L 1.56-6.13 LYMPHOCYTES ABSOLUTE COUNT (BEAKER) (test khpw=442) 0.94 K/ L 1.18-3.74 MONOCYTES ABSOLUTE COUNT (BEAKER) (test xrlg=631) 0.24 K/ L 0.24-0.36 EOSINOPHILS ABSOLUTE COUNT (BEAKER) (test domq=907) 0.19 K/ L 0.04-0.36 BASOPHILS ABSOLUTE COUNT (BEAKER) (test urlr=626) 0.01 K/ L 0.01-0.08 IMMATURE GRANULOCYTES-RELATIVE PERCENT (BEAKER) (test ndad=4397) 2 % 0-1 (MANUAL DIFFERENTIAL)2017-08-22 18:30:00* Test Item Value Reference Range Comments NEUTROPHILS - REL (DIFF) (BEAKER) (test oniy=6360) 50 % LYMPHOCYTES - REL (DIFF) (BEAKER) (test yhec=1087) 19 % MONOCYTES - REL (DIFF) (BEAKER) (test gipj=0422) 1 % EOSINOPHILS - REL (DIFF) (BEAKER) (test mlbx=4962) 7 % METAMYELOCYTES-REL (DIFF) (BEAKER) (test rcnf=868) 3 % 0-0 BANDS - REL (DIFF) (BEAKER) (test pejf=8378) 20 % 0-10 NEUTROPHILS - ABS (DIFF) (BEAKER) (test ixbz=5616) 2.95 K/ L 1.80-8.00 LYMPHOCYTES - ABS (DIFF) (BEAKER) (test hgut=0303) 1.12 K/ L 1.48-4.50 MONOCYTES - ABS (DIFF) (BEAKER) (test qozz=9711) 0.06 K/ L 0.00-1.30 EOSINOPHILS - ABS (DIFF) (BEAKER) (test phsm=3665) 0.41 K/ L 0.00-0.50 METAMYELOCTYES - ABS (DIFF) (BEAKER) (test bomb=169) 0.18 K/ L 0.00-0.00 BANDS-ABS (DIFF) (BEAKER) (test yzhw=2328) 1.2 K/ L 0.0-0.8 TOTAL COUNTED (BEAKER) (test ebtf=6742) 100 BANDS + SEGMENTED NEUTROPHILS (BEAKER) (test bcsq=0588) 4.13 WBC MORPHOLOGY (BEAKER) (test jmum=199) Normal PLT MORPHOLOGY (BEAKER) (test fqrj=322) Normal ANISOCYTOSIS (BEAKER) (test jiur=341) 2+ moderate POLYCHROMATOPHILLIC RBCS(BEAKER) (test kyus=770) 1+ few TROPONIN [id number] 18:24:00* Test Item Value Reference Range Comments TROPONIN I (BEAKER) (test rubm=386) 0.01 ng/mL 0.00-0.03 Troponin I (TnI) levels must be interpreted in the context of the presenting sym ptoms and the clinical findings. Elevated TnI levels indicate myocardial damage, but are not specific for ischemic heart disease. Elevated TnI levels are seen in patients with other cardiac conditions (including myocarditis and congestive h eart failure), and slight TnI elevations occur in patients with other conditions , including sepsis, renal failure, acidosis, acute neurological disease, and per sistent tachyarrhythmia.LACTIC ACID, VENOUS, WHOLE [id number] 18:12:00* Test Item Value Reference Range Comments LACTATE BLOOD VENOUS (2) (BEAKER) (test bocz=4896) > mmol/L 0.5-2.2 Specimen moderately hemolyzed Effective 12/30/2015: Units/Reference Range ChangeNew: 0.5-2.2 mmol/L Previous: 5 -20 mg/[id number] 18:10:00* Test Item Value Reference Range Comments MAGNESIUM (BEAKER) (test waex=597) 0.8 mg/dL 1.6-2.6 Specimen slightly hemolyzed BASIC METABOLIC [id number] 18:08:00* Test Item Value Reference Range Comments SODIUM (BEAKER) (test ywqu=897) 134 meq/L 136-145 POTASSIUM (BEAKER) (test upah=070) 3.9 meq/L 3.5-5.1 Specimen slightly hemolyzed CHLORIDE (BEAKER) (test voga=335) 106 meq/L 98-107 CO2 (BEAKER) (test hato=589) 15 meq/L 22-29 BLOOD UREA NITROGEN (BEAKER) (test omqg=628) 7 mg/dL 7-21 CREATININE (BEAKER) (test nqnk=083) 0.42 mg/dL 0.57-1.25 Specimen slightly hemolyzed GLUCOSE RANDOM (BEAKER) (test nvey=428) 79 mg/dL 70-105 CALCIUM (BEAKER) (test enuc=683) 6.8 mg/dL 8.4-10.2 EGFR (BEAKER) (test szzv=6304) 158 mL/min/1.73 sq m ESTIMATED GFR IS NOT ACCURATE CREATININE CLEARANCE IN PREDICTING GLOMERULAR FILTRATION RATE. ESTIMATED GFR IS NOT APPLICABLE FOR DIALYSIS PATIENTS. HEPATIC FUNCTION [id number] 18:08:00* Test Item Value Reference Range Comments TOTAL PROTEIN (BEAKER) (test jgcx=301) 3.6 gm/dL 6.0-8.3 Specimen slightly hemolyzed ALBUMIN (BEAKER) (test ffps=4048) 1.7 g/dL 3.5-5.0 Specimen slightly hemolyzed BILIRUBIN TOTAL (BEAKER) (test fotb=922) 0.3 mg/dL 0.2-1.2 Specimen slightly hemolyzed BILIRUBIN DIRECT (BEAKER) (test bzbi=168) 0.1 mg/dL 0.1-0.5 Specimen slightly hemolyzed ALKALINE PHOSPHATASE (BEAKER) (test jjxy=992) 46 U/L 40-150 AST (SGOT) (BEAKER) (test vzor=399) 30 U/L 5-34 Specimen slightly hemolyzed ALT (SGPT) (BEAKER) (test ibit=709) 12 U/L 6-55 Specimen slightly hemolyzed [id number] 18:02:00* Test Item Value Reference Range Comments LIPASE (BEAKER) (test erql=242) 13 U/L 8-78 URINALYSIS W/ [id number] 17:49:00* Test Item Value Reference Range Comments COLOR (BEAKER) (test lxbu=070) Light Yellow CLARITY (BEAKER) (test yfmq=147) Clear SPECIFIC GRAVITY UA (BEAKER) (test znyh=574) 1.003 1.001-1.035 PH UA (BEAKER) (test mifn=937) 7.0 5.0-8.0 PROTEIN UA (BEAKER) (test gyaq=658) Negative Negative GLUCOSE UA (BEAKER) (test izyz=528) Negative Negative KETONES UA (BEAKER) (test lbii=727) Negative Negative BILIRUBIN UA (BEAKER) (test chgc=760) Negative Negative BLOOD UA (BEAKER) (test aalf=468) Negative Negative NITRITE UA (BEAKER) (test ctmh=891) Negative Negative LEUKOCYTE ESTERASE UA (BEAKER) (test lrlc=071) Negative Negative UROBILINOGEN UA (BEAKER) (test flrq=820) 0.2 mg/dL 0.2-1.0 RBC UA (BEAKER) (test lkzh=021) < /HPF WBC UA (BEAKER) (test nbmh=591) < /HPF SOURCE(BEAKER) (test tjhq=6927) Urine, Sandy [id number] 17:37:00* Test Item Value Reference Range Comments FIBRINOGEN LEVEL (BEAKER) (test skpn=174) 240 mg/dl 225-434 [id number] 17:33:00* Test Item Value Reference Range Comments D-DIMER QUANTITATIVE (BEAKER) (test xuej=939) 3.07 MG/L FEU <0.50 Intended Use: The D-Dimer Assay can be used to aid in the diagnosis of Deep Vein Thrombosis (DVT) and Pulmonary Embolism Disease (PED).In patients with low pre- test probability, various studies concerning STA Liatest D-dimer test have repor kyle that with a cutoff value of 0.50 MG/L FEU, the Negative Predictive Value (RESEARCH EDITOR V) regarding the exclusion of thrombosis is within 95-100% range.PROTHROMBIN TIME/[id number] 17:32:00* Test Item Value Reference Range Comments PROTIME (BEAKER) (test slnx=526) 18.8 seconds 11.7-14.7 INR (BEAKER) (test jcgi=037) 1.6 <=5.9 RECOMMENDED COUMADIN/WARFARIN INR THERAPY RANGESSTANDARD DOSE: 2.0 - 3.0 Inclu nathanael: PROPHYLAXIS for venous thrombosis, systemic embolization; TREATMENT for james ous thrombosis and/or pulmonary embolus.HIGH RISK: Target INR is 2.5-3.5 for pat ients with mechanical heart valves.URINALYSIS W/ [id number] 15:40:00 * Test Item Value Reference Range Comments COLOR (BEAKER) (test kbrc=472) Light Yellow CLARITY (BEAKER) (test ffjv=163) Clear SPECIFIC GRAVITY UA (BEAKER) (test qnmh=661) 1.009 1.001-1.035 PH UA (BEAKER) (test nclw=503) 7.5 5.0-8.0 PROTEIN UA (BEAKER) (test yczk=997) Negative Negative GLUCOSE UA (BEAKER) (test tcyy=344) Negative Negative KETONES UA (BEAKER) (test hkkg=762) Negative Negative BILIRUBIN UA (BEAKER) (test kbuy=865) Negative Negative BLOOD UA (BEAKER) (test hqzx=011) Negative Negative NITRITE UA (BEAKER) (test pbbv=916) Negative Negative LEUKOCYTE ESTERASE UA (BEAKER) (test fpww=492) Negative Negative UROBILINOGEN UA (BEAKER) (test hwbp=557) 0.2 mg/dL 0.2-1.0 RBC UA (BEAKER) (test jssr=101) < /HPF WBC UA (BEAKER) (test ovcs=868) < /HPF MUCUS (BEAKER) (test gdto=8360) Rare SOURCE(BEAKER) (test hqav=3353) Urine, Delgado POCT-LACTIC ACID, [id number] 15:17:00* Test Item Value Reference Range Comments POC-LACTIC ACID, VENOUS (BEAKER) (test plcy=4488) 2.1 mmol/L 0.9-1.7 TESTED AT [address] [address] POCT-LACTIC ACID, [id number] 15:17:00* Test Item Value Reference Range Comments POC-LACTIC ACID, VENOUS (BEAKER) (test iues=5750) 2.6 mmol/L 0.9-1.7 TESTED AT [address] [address] RAPID INFLUENZA A&B [id number] 15:01:00* Test Item Value Reference Range Comments RAPID INFLUENZA A AG (BEAKER) (test tpxy=3868) Negative Negative, Inconclusive RAPID INFLUENZA B AG (BEAKER) (test uizt=2080) Negative Negative, Inconclusive RAD, CHEST, PA OR AP, 1 [id number] 14:18:00Reason for exam:->coughShould this be performed at the bedside?->YesIs the patient ?->NoFINAL REPORT Chest, AP view. History: Cough. Comparison: None available. Discussion: The cardiomediastinal silhouette and pulmonary va sculature are within normal limits. The lungs are clear without evidence of cons olidation or effusion. There are no acute osseous abnormalities. The soft tissu es are unremarkable. IMPRESSION: No acute cardiopulmonary abnormality. Signed: Rhianna Mcdonough MDReport Verified Date/Time: 08/22/2017 14:18:00 Reading Locati on: [facility] Electronically signed by: RHIANNA MCDONOUGH M.D. on 08/22 02:18 PM CBC W/PLT COUNT & AUTO [id number] 14:16:00* Test Item Value Reference Range Comments WHITE BLOOD CELL COUNT (BEAKER) (test krpn=999) 12.9 K/ L 3.5-10.5 RED BLOOD CELL COUNT (BEAKER) (test nuxa=944) 5.33 M/ L 3.93-5.22 HEMOGLOBIN (BEAKER) (test euor=078) 13.3 GM/DL 11.2-15.7 HEMATOCRIT (BEAKER) (test gmum=845) 43.4 % 34.1-44.9 MEAN CORPUSCULAR VOLUME (BEAKER) (test hxqx=206) 81.4 fL 79.4-94.8 MEAN CORPUSCULAR HEMOGLOBIN (BEAKER) (test mmzm=883) 25.0 pg 25.6-32.2 MEAN CORPUSCULAR HEMOGLOBIN CONC (BEAKER) (test noou=892) 30.6 GM/DL 32.2-35.5 RED CELL DISTRIBUTION WIDTH (BEAKER) (test yptt=551) 21.1 % 11.7-14.4 PLATELET COUNT (BEAKER) (test oklf=328) 133 K/CU MM 150-450 MEAN PLATELET VOLUME (BEAKER) (test pyjx=251) 9.4 fL 9.4-12.3 NUCLEATED RED BLOOD CELLS (BEAKER) (test uvod=894) 0 /100 WBC 0-0 IMMATURE GRANULOCYTES-RELATIVE PERCENT (BEAKER) (test ugmi=5850) 3 % 0-1 (MANUAL DIFFERENTIAL)2017-08-22 14:16:00* Test Item Value Reference Range Comments NEUTROPHILS - REL (DIFF) (BEAKER) (test kpfk=2941) 58 % LYMPHOCYTES - REL (DIFF) (BEAKER) (test nzzd=7150) 14 % MONOCYTES - REL (DIFF) (BEAKER) (test surn=6962) 3 % EOSINOPHILS - REL (DIFF) (BEAKER) (test wrno=4701) 5 % METAMYELOCYTES-REL (DIFF) (BEAKER) (test qulb=125) 2 % 0-0 BANDS - REL (DIFF) (BEAKER) (test gdby=4494) 14 % 0-10 ATYPICAL LYMPHOCYTE - REL (DIFF) (BEAKER) (test qmyy=775) 4 % 0-0 NEUTROPHILS - ABS (DIFF) (BEAKER) (test mdsy=3256) 7.48 K/ L 1.80-8.00 LYMPHOCYTES - ABS (DIFF) (BEAKER) (test acwc=5410) 1.81 K/ L 1.48-4.50 MONOCYTES - ABS (DIFF) (BEAKER) (test nbml=5689) 0.39 K/ L 0.00-1.30 EOSINOPHILS - ABS (DIFF) (BEAKER) (test zqeh=0382) 0.65 K/ L 0.00-0.50 METAMYELOCTYES - ABS (DIFF) (BEAKER) (test wgfe=037) 0.26 K/ L 0.00-0.00 BANDS-ABS (DIFF) (BEAKER) (test mddh=2349) 1.8 K/ L 0.0-0.8 ATYPICAL LYMPHOCYTES - ABS (DIFF) (BEAKER) (test luzm=341) 0.52 K/ L 0.00-0.00 TOTAL COUNTED (BEAKER) (test mncq=5250) 100 BANDS + SEGMENTED NEUTROPHILS (BEAKER) (test aejt=0707) 9.29 WBC MORPHOLOGY (BEAKER) (test hjjw=423) Normal RBC MORPHOLOGY (BEAKER) (test jgkk=539) Normal LARGE PLT(BEAKER) (test xqjg=4029) Present COMPREHENSIVE METABOLIC [id number] 14:08:00* Test Item Value Reference Range Comments TOTAL PROTEIN (BEAKER) (test fqfi=856) 8.3 gm/dL 6.0-8.3 Specimen moderately hemolyzed ALBUMIN (BEAKER) (test uikz=9274) 3.6 g/dL 3.5-5.0 Specimen moderately hemolyzed ALKALINE PHOSPHATASE (BEAKER) (test ljfo=424) 94 U/L 40-150 BILIRUBIN TOTAL (BEAKER) (test yjfi=278) 0.7 mg/dL 0.2-1.2 Specimen moderately hemolyzed SODIUM (BEAKER) (test eboy=501) 133 meq/L 136-145 POTASSIUM (BEAKER) (test lkue=041) 4.2 meq/L 3.5-5.1 Specimen moderately hemolyzed CHLORIDE (BEAKER) (test kgav=423) 100 meq/L 98-107 CO2 (BEAKER) (test xdii=425) 19 meq/L 22-29 BLOOD UREA NITROGEN (BEAKER) (test apev=826) 12 mg/dL 7-21 CREATININE (BEAKER) (test slwv=718) 0.74 mg/dL 0.57-1.25 Specimen moderately hemolyzed GLUCOSE RANDOM (BEAKER) (test vvzx=329) 105 mg/dL 70-105 CALCIUM (BEAKER) (test khyw=785) 9.1 mg/dL 8.4-10.2 AST (SGOT) (BEAKER) (test drlq=088) 56 U/L 5-34 Specimen moderately hemolyzed ALT (SGPT) (BEAKER) (test wayu=930) 21 U/L 6-55 Specimen moderately hemolyzed EGFR (BEAKER) (test gwbb=2787) mL/min/1.73 sq m INSUFFICIENT CLINICAL DATA TO CALCULATE ESTIMATED GFR.
== END 2018-07-01 16:28 | disposition home or self-care (01) ==
LOC: FSED 15:20
DX: B02.9 Zoster without complications (principal)
CPT/HCPCS: 99283